=== PATIENT | female | born 1950 | race Caucasian/White ===

== ENCOUNTER 2023-09-13 07:13 | Emergency (ER) | payer MEDICARE, OTHER, SELFPAY ==
[2023-09-13] VITALS (14 sets, daily range): BP systolic 101–135; BP diastolic 63–105; BMI 31.1
[2023-09-13] MEDS: CARDIZEM 20 MG IV (07:39)
[2023-09-13] MEDS: NSS 1000 IV (07:42)
[2023-09-13] MEDS: CARDIZEM 125 IV (07:42)
--- NOTE | 2023-09-13 07:47 | ED.GENMED ---
Addendum entered and electronically signed by Yariel Trujillo Jr., PA-C 09/13/23 10:29:
0945: Patient converted spontaneously from atrial fibrillation to sinus rhythm repeat EKG confirming this. Patient now asymptomatic. Patient was seen by cardiology and is stable for outpatient management was started on Eliquis written for 30-day
supply will follow-up closely. Return precautions given.
Original Note:
History of Present Illness
<Yariel Trujillo Jr., PA-C - Last Filed: 09/13/23 09:40>
General
Chief Complaint: Heart Rate Problem
Source: patient
Exam Limitations: none
Time Seen by Provider: 09/13/23 07:23
Nursing documentation reviewed up to this point in time: agreed with
Travel History
Have you had any contact with someone who has COVID-19?: No
Do you have any symptoms of coronavirus? Fever > 100 degrees, chills, cough, shortness of breath, sore throat, loss of taste or smell, muscle aches, or headache?: No
History of Present Illness
History of Present Illness:
73-year-old female with past medical history of aortic stenosis hypertension hyperlipidemia polymyalgia rheumatica presenting to the emergency department today with concerns of palpitations irregular heartbeat lightheadedness that occurred just
after waking up when going to the bathroom this morning. Denies any history of significant palpitations similar to this. Does appreciate previous history of breast cancer not currently being treated for this. Does have some nausea no vomiting
took Zofran as well as her blood pressure medications prior to arrival which include Cardizem, lisinopril and Catapres
Review of Systems
<FRED Lai Jr. Last Filed: 09/13/23 09:40>
Review of Systems
Allergies reviewed?: Yes
All Other Systems: ROS reviewed and negative except as documented in HPI and ROS
Phy Exam
<FRED Lai Jr. Last Filed: 09/13/23 09:40>
Physical Exam
Physical Exam:
GENERAL: Alert , in no apparent distress
EYE: pupils equal and reactive
NECK: Supple, no significant adenopathy.
ENT: o/p clr, mmm.
CARDIAC: Irregularly irregular and tachycardic, grade 3 pansystolic murmur
LUNGS: Clear breath sounds bilaterally, no acute respiratory distress, no wheezes/rales/rhonchi
ABDOMEN: Soft, without focal tenderness, no r/g, no cvat
NEUROLOGICAL: Alert and oriented, no focal neuro deficits
SKIN: Warm and dry, skin intact.
MUSCULOSKELETAL: No edema, well perfused.
PSYCH: Normal and appropriate interaction.
Course
<Yariel Trujillo Jr., FRED - Last Filed: 09/13/23 09:40>
Orders/Labs/Results
Orders:
Orders
09/13/23 07:20
EKG [Electrocardiogram (*1)] Urgent
Reason for Study: Palpitations
EKG- Treatment ONCE
09/13/23 07:33
Diltiazem 125 mg/125 ml Nss [Cardizem] 125 mg in 125 ml .ROUTE .STK-MED
Diltiazem HCl [Cardizem] 25 mg .ROUTE .STK-MED ONE
09/13/23 07:39
Cardiac Monitoring- Treatment ONCE
0.9% Sodium Chloride 1000 ml [Nss] 1,000 ml IV BOLUS
Diltiazem HCl [Cardizem] 20 mg IV NOW STA
09/13/23 07:43
Complete Blood Count/With Diff Urgent
NT-proBNP Urgent
PTT Urgent
Prothrombin Time Urgent
TSH Urgent
Troponin I Urgent
09/13/23 07:45
Diltiazem 125 mg/125 ml Nss [Cardizem] 125 mg in 125 ml IV PER PROTOCOL
Initial dose in mg/hr, then titrate:: 5
Titrate to keep:: Heart rate 80-100 bpm
Titrate by mg/hr:: 5 mg/hr
Frequency of titrations (minutes):: 15
Maximum dose in mg/hr:: 15
09/13/23 08:19
Lorazepam [Ativan] 0.5 mg IV NOW STA
09/13/23 08:27
Apixaban [Eliquis] 5 mg PO ONCE ONE
09/13/23 08:41
Comprehensive Metabolic Panel Urgent
Magnesium Urgent
Abnormal Lab Results
09/13/23 09/13/23
07:43 08:41
MPV 10.5 H fL
(7.4-10.4)
Absolute Neuts (auto) 6.9 H 10^3/uL
(1.4-6.5)
Absolute Monos (auto) 0.9 H 10^3/uL
(0.1-0.6)
Lymphocytes % 15.7 L %
(20.5-51.1)
Creatinine 0.5 L mg/dL
(0.6-1.0)
Glucose 116 H mg/dl
(70-99)
Troponin I 0.061 H* ng/ml
09/13/23 07:43
09/13/23 08:41
Vital Signs
Initial and Last Documented VS:
Initial Vital Signs
Temp Pulse Resp BP Pulse Ox
97.8 F 59 16 113/80 99
09/13/23 07:15 09/13/23 07:15 09/13/23 07:15 09/13/23 07:15 09/13/23 07:15
Last Documented Vital Signs
Temp Pulse Resp BP Pulse Ox
97.8 F 140 18 117/80 98
09/13/23 07:15 09/13/23 08:35 09/13/23 08:35 09/13/23 08:35 09/13/23 08:35
<Jose Webb MD - Last Filed: 09/13/23 08:30>
Orders/Labs/Results
Orders:
Orders
09/13/23 07:20
EKG [Electrocardiogram (*1)] Urgent
Reason for Study: Palpitations
EKG- Treatment ONCE
09/13/23 07:33
Diltiazem 125 mg/125 ml Nss [Cardizem] 125 mg in 125 ml .ROUTE .STK-MED
Diltiazem HCl [Cardizem] 25 mg .ROUTE .STK-MED ONE
09/13/23 07:39
Cardiac Monitoring- Treatment ONCE
0.9% Sodium Chloride 1000 ml [Nss] 1,000 ml IV BOLUS
Diltiazem HCl [Cardizem] 20 mg IV NOW STA
09/13/23 07:43
Complete Blood Count/With Diff Urgent
NT-proBNP Urgent
PTT Urgent
Prothrombin Time Urgent
TSH Urgent
Troponin I Urgent
09/13/23 07:45
Diltiazem 125 mg/125 ml Nss [Cardizem] 125 mg in 125 ml IV PER PROTOCOL
Initial dose in mg/hr, then titrate:: 5
Titrate to keep:: Heart rate 80-100 bpm
Titrate by mg/hr:: 5 mg/hr
Frequency of titrations (minutes):: 15
Maximum dose in mg/hr:: 15
09/13/23 08:19
Lorazepam [Ativan] 0.5 mg IV NOW STA
09/13/23 08:27
Apixaban [Eliquis] 5 mg PO ONCE ONE
09/13/23 08:41
Comprehensive Metabolic Panel Urgent
Magnesium Urgent
Abnormal Lab Results
09/13/23 09/13/23
07:43 08:41
MPV 10.5 H fL
(7.4-10.4)
Absolute Neuts (auto) 6.9 H 10^3/uL
(1.4-6.5)
Absolute Monos (auto) 0.9 H 10^3/uL
(0.1-0.6)
Lymphocytes % 15.7 L %
(20.5-51.1)
Creatinine 0.5 L mg/dL
(0.6-1.0)
Glucose 116 H mg/dl
(70-99)
Troponin I 0.061 H* ng/ml
09/13/23 07:43
09/13/23 08:41
Vital Signs
Initial and Last Documented VS:
Initial Vital Signs
Temp Pulse Resp BP Pulse Ox
97.8 F 59 16 113/80 99
09/13/23 07:15 09/13/23 07:15 09/13/23 07:15 09/13/23 07:15 09/13/23 07:15
Last Documented Vital Signs
Temp Pulse Resp BP Pulse Ox
97.8 F 140 18 117/80 98
09/13/23 07:15 09/13/23 08:35 09/13/23 08:35 09/13/23 08:35 09/13/23 08:35
<Yariel Trujillo Jr., FRED - Last Filed: 09/13/23 09:40>
MDM/Problems Addressed
MDM/Problems Addressed:
73-year-old female presenting to the emergency department today with concerns of palpitations and elevated heart rate prior to arrival with associated lightheadedness and nausea. Upon arrival here heart rate in the 170s to 180s and irregularly
irregular consistent with atrial fibrillation. Patient has no history of this. Did drink some alcohol last night denies daily use. Patient given initial dose of Cardizem 20 mg NSAID on drip. Heart rate improving to the 180s Case was discussed
with cardiology and will be admitted for further treatment and monitoring. Not a good candidate for cardioversion at this time. Stable throughout ER stay blood pressure remaining in the 110s.
<Yariel Trujillo Jr., PA-C - Last Filed: 09/13/23 09:40>
*Critical Care Note
Total Time (30-74mins, 75-104mins- exclusive of procedures): Not Applicable
ED Attending Note
<Yariel Trujillo Jr., PA-C - Last Filed: 09/13/23 09:40>
-
Portions of this chart may have been created with voice recognition software.� Occasional wrong word or��sound alike� substitutions may have occurred due to the inherent limitations of voice recognition software.
<Jose Webb MD - Last Filed: 09/13/23 08:30>
ED Attending Note
Patient seen and examined by attending physician: Yes
I performed the substantive portion of visit, reviewed & personally made and approve the management plan that is documented in note by myself or ЕЛЕНА.: Yes
ED Attending Note:
73-year-old female sudden onset of irregular rapid heartbeat with some mild chest discomfort and shortness of breath in the middle the night. No history of same. 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 No history of same.
History of aortic stenosis.
On exam patient has atrial fibrillation/RVR. Midsystolic murmur. Lungs are relatively clear. May be a few crackles in the bases. No respiratory distress. Warm and dry. Perfusing well.
Diagnosis atrial fibrillation RVR with significant aortic stenosis. Carefully start rate control. Patient is a candidate for anticoagulation. Discussed cardioversion versus admission. Because of patient's AAS and multiple hypertensive meds she
would not be a candidate for outpatient rate control. Discussed with cardiology. She will be admitted with rate control and monitoring
Discharge Plan
Departure
Patient Disposition: Admit
Date of Disposition: 09/13/23
Time of Disposition: 08:33
Admit to: Telemetry
Admit to doctor: Taco
Presentation/result/management discussed w/ accepting MD/DO: Hospitalist
Patient with high blood pressure during this ER visit?: No
Condition: Good
Covid-19: Not Applicable
Discharge Problem:
Atrial fibrillation with RVR
Referrals:
Samanta Pineda MD [Family Provider] -
Interventions
Interventions:
*General Assessment Last Done: 09/13/23 07:15
*ED COVID-19 Vaccine History Last Done: 09/13/23 07:15
ED- Cardiac Assessment Last Done: 09/13/23 07:52
ED- Pulmonary Assessment Last Done: 09/13/23 07:52
[2023-09-13 07:55] LABS: % Basophils 1.6 % (0-2); % Eosinophils 1.9 % (0-6); % Immature Granulocytes 0.3 % (0-0.5); % Lymphocytes 15.7 % (20.5-51.1); % Monocytes 8.8 % (1.7-9.3); % Neutrophils 71.7 % (42.2-75.2); Absolute Basophils 0.2 10^3/uL (0-0.2); Absolute Eosinophils 0.2 10^3/uL (0-0.7); Absolute Lymphocytes 1.5 10^3/uL (1.2-3.4); Absolute Monocytes 0.9 10^3/uL (0.1-0.6); Absolute Neutrophils 6.9 10^3/uL (1.4-6.5); Hematocrit 38.5 % (37.0-47.0); Hemoglobin 13.4 g/dL (12.0-16.0); Mean Corp Hgb Conc. 34.8 g/dL (33.0-37.0); Mean Corpuscular Hgb 30.9 pg (27.0-31.0); Mean Corpuscular Volume 88.9 fL (81.0-99.0); Mean Platelet Volume 10.5 fL (7.4-10.4); Nucleated Red Blood Cells % 0 %; Platelet Count 203 10^3/uL (130-400); Red Blood Cell Count 4.33 10^6/uL (4.20-5.40); Red Cell Dist. Width 13.6 % (11.5-14.5); White Blood Cell Count 9.6 10^3/uL (4.8-10.8)
[2023-09-13 08:04] LABS: INR 1.03; PT 13.3 Sec (11.4-14.6)
[2023-09-13 08:19] LABS: NT-proBNP 1140 pg/ml; Troponin I 0.061 ng/ml
[2023-09-13] MEDS: ATIVAN 0.5 MG IV (08:32)
[2023-09-13 08:37] LABS: TSH 1.53 uIU/ml (0.47-4.68)
[2023-09-13 09:03] LABS: ALT (SGPT) 19 U/L (0-35); AST (SGOT) 23 U/L (14-36); Albumin 4.1 g/dl (3.5-5.0); Alkaline Phosphatase 70 U/L (38-126); Blood Urea Nitrogen 13 mg/dl (7-17); Calcium 9.1 mg/dl (8.4-10.2); Carbon Dioxide 24 mmol/L (22-30); Chloride 104 mmol/L (98-107); Estimated Creatinine Clearance 91 ml/min; Glucose 116 mg/dl (70-99); Magnesium 1.8 mg/dl (1.6-2.3); Sodium 138 mmol/L (135-145); Total Bilirubin 0.2 mg/dl (0.2-1.3); Total Protein 6.3 g/dl (6.3-8.2); eGFR > 60.00
--- NOTE | 2023-09-13 10:17 | ED.GENMED ---
History of Present Illness
General
Chief Complaint: Heart Rate Problem
Time Seen by Provider: 09/13/23 07:23
Travel History
Have you had any contact with someone who has COVID-19?: No
Do you have any symptoms of coronavirus? Fever > 100 degrees, chills, cough, shortness of breath, sore throat, loss of taste or smell, muscle aches, or headache?: No
Course
Orders/Labs/Results
Orders:
Orders
09/13/23 07:20
EKG [Electrocardiogram (*1)] Urgent
Reason for Study: Palpitations
EKG- Treatment ONCE
09/13/23 07:33
Diltiazem 125 mg/125 ml Nss [Cardizem] 125 mg in 125 ml .ROUTE .STK-MED
Diltiazem HCl [Cardizem] 25 mg .ROUTE .STK-MED ONE
09/13/23 07:39
Cardiac Monitoring- Treatment ONCE
0.9% Sodium Chloride 1000 ml [Nss] 1,000 ml IV BOLUS
Diltiazem HCl [Cardizem] 20 mg IV NOW STA
09/13/23 07:43
Complete Blood Count/With Diff Urgent
NT-proBNP Urgent
PTT Urgent
Prothrombin Time Urgent
TSH Urgent
Troponin I Urgent
09/13/23 07:45
Diltiazem 125 mg/125 ml Nss [Cardizem] 125 mg in 125 ml IV PER PROTOCOL
Initial dose in mg/hr, then titrate:: 5
Titrate to keep:: Heart rate 80-100 bpm
Titrate by mg/hr:: 5 mg/hr
Frequency of titrations (minutes):: 15
Maximum dose in mg/hr:: 15
09/13/23 08:19
Lorazepam [Ativan] 0.5 mg IV NOW STA
09/13/23 08:27
Apixaban [Eliquis] 5 mg PO ONCE ONE
09/13/23 08:41
Comprehensive Metabolic Panel Urgent
Magnesium Urgent
09/13/23 09:56
Electrocardiogram (*1) Urgent
Reason for Study: Atrial Fibrillation
09/13/23 09:57
EKG- Treatment ONCE
Abnormal Lab Results
09/13/23 09/13/23
07:43 08:41
MPV 10.5 H fL
(7.4-10.4)
Absolute Neuts (auto) 6.9 H 10^3/uL
(1.4-6.5)
Absolute Monos (auto) 0.9 H 10^3/uL
(0.1-0.6)
Lymphocytes % 15.7 L %
(20.5-51.1)
Creatinine 0.5 L mg/dL
(0.6-1.0)
Glucose 116 H mg/dl
(70-99)
Troponin I 0.061 H* ng/ml
09/13/23 07:43
09/13/23 08:41
Vital Signs
Initial and Last Documented VS:
Initial Vital Signs
Temp Pulse Resp BP Pulse Ox
97.8 F 59 16 113/80 99
09/13/23 07:15 09/13/23 07:15 09/13/23 07:15 09/13/23 07:15 09/13/23 07:15
Last Documented Vital Signs
Temp Pulse Resp BP Pulse Ox
97.8 F 87 24 105/73 98
09/13/23 07:15 09/13/23 09:45 09/13/23 09:45 09/13/23 09:30 09/13/23 09:45
ED Attending Note
-
Portions of this chart may have been created with voice recognition software.� Occasional wrong word or��sound alike� substitutions may have occurred due to the inherent limitations of voice recognition software.
Discharge Plan
Departure
Patient Disposition: Home (Routine Discharge)
Date of Disposition: 09/13/23
Time of Disposition: 08:33
Admit to: Telemetry
Patient with high blood pressure during this ER visit?: No
Condition: Good
Covid-19: Not Applicable
Discharge Problem:
Atrial fibrillation with RVR
Instructions: Atrial Fibrillation (DC)
Prescriptions:
New
Eliquis 5 mg tablet
5 mg PO BID 30 Days Qty: 60 0RF
Referrals:
Samanta Pineda MD [Family Provider] -
Debbie Fuentes MD [Active] - Follow up in 5-7 days
Activity Restrictions/Additional Instructions:
You came to emergency department today with concerns of atrial fibrillation. You converted here after receiving Cardizem. Please take your home medications as well as Eliquis twice daily and follow-up closely with cardiology. Return to the
emergency department any worsening, new or concerning symptoms.
Interventions
Interventions:
*General Assessment Last Done: 09/13/23 07:15
*ED COVID-19 Vaccine History Last Done: 09/13/23 07:15
ED- Cardiac Assessment Last Done: 09/13/23 07:52
ED- Pulmonary Assessment Last Done: 09/13/23 07:52
[2023-09-13] MEDS: ELIQUIS 5 MG PO (10:28)
[2023-09-13 10:59] LABS: Urine Albumin Negative (Neg - Trace); Urine Bilirubin Negative (Negative); Urine Character Clear (Clear); Urine Color Yellow; Urine Glucose Negative (Negative); Urine Ketone Negative (Negative); Urine Leukocyte Trace (Negative); Urine Nitrite Negative (Negative); Urine Occult Blood Negative (Negative); Urine Urobilinogen Negative (Neg - 1+)
[2023-09-13 11:49] LABS: Urine Red Blood Cell 0-2 /HPF (0-2)
== END 2023-09-13 10:40 | disposition home or self-care (01) ==
LOC: EMR 07:13
PROVIDERS: Physician Assistant; EMERGENCY PHYSICIAN Emergency Medicine; FAMILY PHYSICIAN Internal Medicine
DX: I48.91 Unspecified atrial fibrillation (principal); I35.0 Nonrheumatic aortic (valve) stenosis; I10 Essential (primary) hypertension
CPT/HCPCS: 99285; 96374; 96375; 96361; 96376; 80053; 81003; 81015; 83735; 83880; 84443; 84484; 85025; 85610; 85730; 93005

== ENCOUNTER 2024-07-08 08:44 | Day surgery (SDC) | payer MEDICARE, OTHER, SELFPAY ==
[2024-07-08] VITALS (9 sets, daily range): BP systolic 94–126; BP diastolic 53–74; BMI 31.3
[2024-07-08] MEDS: NSS 500 IV (09:54)
[2024-07-08] MEDS: ZOFRAN 4 MG IV (10:16)
[2024-07-08] MEDS: NSS 1000 IV (12:33)
[2024-07-08] MEDS: TYLENOL 650 MG PO (12:42)
--- NOTE | 2024-07-08 13:55 | CONSULT.STRU ---
Consultation
-
Date/Time Consultation Requested: 07/08/2024
Date/Time Consultation Performed: 07/08/2024
Requesting Provider: Dr. Marks
Performing Provider: SINDY Estrella
Reason for Consultation: Aortic stenosis/TAVR evaluation
Patient History
Physicians
Family Physician: Dr. Samanta Pineda
Outpatient Chicken Catcher: Dr. Griffith
Primary Chicken Catcher: Dr. Griffith
History of Present Illness
74 yo pleasant, female with PMH of severe , paroxysmal A fib on eliquis, iRBBB, HTN, hyperlipidemia, mildly dilated ascending aorta (4.0cm), right breast cancer (s/p lumpectomy,chemo, radiation), myalgia, PMR. She had previously followed with
[facility] and has chosen to now establish care here. Previous echocardiogram was notable for MmmHG and GERRY: 0.6, EF 66%. Plan to repeat today while here. Presents today for cardiac catheterization with Dr. Marks as part of her TAVR work up. No
occlusive CAD noted on cath.Patient exercises 4x/week and remains very active caring for her grandchildren. She denies any true symptoms. She denies BELL, CP, palpitations (other than the one episode of a-fib), orthopnea, PND or peripheral edema. She
says she 'cat naps' frequently but she relates that to her prior cancer treatment 2 years ago.
Reviewed the pathophysiology of aortic stenosis with the patient and her . Explained the treatment options of SAVR and TAVR. Explained the TAVR evaluation process including follow up BMP, CT TAVR scan, CT surgery consult and Heart Team
discussion. Provided with script for BMP next week, script and appointment for CT TAVR, Consult appointment with Dr. Fisher and a copy of the TAVR education booklet with contact information. Allowed for and answered questions.
Past Medical History
Past Medical History: Atrial Fib (Eliquis, Chads2-Vasc: 3), Cancer (right breast cancer with lumpectomy, chemo, radiation), GERD, HTN, Hypercholesterolemia and Other (Polymyalgia Rheumatica, peripheral neuropathy secondary to chemotherapy, tinnitus,
skin cancer)
Past Surgical History
Past Surgical History: Orthopedic (Bilateral total knee replacements, Left reverse shoulder) and Other (right breast lumpectomy and lymph node dissection, breast reductions and sinus surgery)
Dental History
Regular dental care. Last visit last week in anticipation of AVR. Dentis is Dr. Freedman in [place], [place]
Family History
Mother: at Age (83yo)
Father: at Age (93yo)
Social History
Alcohol: Occasional
Drug: None
Tobacco: Non-Smoker
Personal:
Living: With Spouse
Employment: Retired
Allergies
Allergy/AdvReac Type Severity Reaction Status Date / Time
levofloxacin [From Levaquin] Allergy Hives Verified 07/08/24 09:36
'anesthesia meds' Allergy Nausea / Uncoded 07/08/24 09:36
Vomiting
Home Medications
�Medication �Instructions �Recorded �Confirmed �Type
apixaban 5 mg tablet (Eliquis) 5 mg PO BID 30 days #60 tabs 09/13/23 07/08/24 Rx
vuwlkrodgp-ssuezpeykgcwm-geeacjcj 1 cap PO Q8H PRN occullar migrane 07/08/24 07/08/24 History
50 mg-300 mg-40 mg capsule
(Fioricet)
cetirizine 10 mg tablet (Zyrtec) 10 mg PO DAILY PRN ALLERGIES 07/08/24 07/08/24 History
cholecalciferol (vitamin D3) 25 25 mcg PO QPM 07/08/24 07/08/24 History
mcg (1,000 unit) capsule (Vitamin
D3)
clonidine HCl 0.1 mg tablet 0.1 mg PO TID 07/08/24 07/08/24 History
diltiazem HCl 180 mg 180 mg PO DAILY 07/08/24 07/08/24 History
capsule,extended release 24 hr
docusate sodium 100 mg capsule 100 mg PO DAILY PRN CONSTIPATION 07/08/24 07/08/24 History
(Stool Softener)
letrozole 2.5 mg tablet 2.5 mg PO DAILY 07/08/24 07/08/24 History
lisinopril 40 mg tablet 40 mg PO BID 07/08/24 07/08/24 History
multivitamin 1 tab PO DAILY 07/08/24 07/08/24 History
omeprazole 40 mg capsule,delayed 40 mg PO BID 07/08/24 07/08/24 History
release
pregabalin 25 mg capsule (Lyrica) 25 mg PO BID peripheral neuro 07/08/24 07/08/24 History
psyllium husk 0.52 gram capsule 0.52 g PO HS 07/08/24 07/08/24 History
rosuvastatin 20 mg tablet 20 mg PO HS 07/08/24 07/08/24 History
tirzepatide (weight loss) 5 mg/0.5 5 mg SC QWEEK 07/08/24 07/08/24 History
mL subcutaneous pen injector
(Zepbound)
zolpidem 12.5 mg tablet,extended 12.5 mg PO HS PRN SLEEP 07/08/24 07/08/24 History
release,multiphase
STS%
STS %: 1.78%
Review of Systems
-
History Source: Patient and Family
General: Reports Fatigue
HEENT: Reports Other (tinnitus)
Respiratory: Reports No Symptoms; Denies BELL, Cough, Asthma or PND
Cardiac: Reports Known Vascular Disease; Denies Chest Pain, CAD or Edema
Abdomen/GI: Reports Reflux; Denies Abdominal Pain, Nausea or Vomiting
: Reports No Symptoms
Musculoskeletal: Reports No Symptoms
Skin: Reports No Symptoms
Neurological: Reports Headaches (occasional migraines) and Other (neuropathy bilateral feet)
Vascular: Reports No Symptoms
Physical Exam
Vital Signs
Temp 98 F 07/08/24 11:57
Temp route: Oral 07/08/24 11:57
Pulse 57 07/08/24 13:30
Resp Rate 12 07/08/24 13:30
Blood pressure 111/62 07/08/24 13:30
Blood pressure extremity used: Left upper arm 07/08/24 13:30
Position: Lying 07/08/24 13:30
SaO2 96 07/08/24 13:30
Oxygen Mode of Delivery Room air 07/08/24 13:39
Can the patient verbally communicate their pain? Yes 07/08/24 13:39
Pain scale ratin 07/08/24 13:39
Actual Weight 85.185 kg 07/08/24 08:16
Body Mass Index (BMI) 31.3 07/08/24 08:16
Labs
06/17/2024
BUN/Creat: 18/0.63
GFR: > 60
H/H: 11.8/34.8
WBC: 7.2
Platelets: [id number]
Exam
General: Well Developed, Well Nourished, No Apparent Distress and Comfortable
HEENT: Normocephalic, PERRLA and EOMI
Neck: Trachea Midline
Respiratory: Clear; Negative Wheezes, Crackles or Rhonchi
Cardiac: S1/S2, Regular Rhythm and Murmur (Grade III/ systolic)
GI: Soft, Non Tender, Non Distended and Normal Bowel Sounds
Rectal: Deferred by Provider
Skin: Warm and Dry
Neuro: AO x 3, No Motor Deficits and Nonfocal/Grossly Intact
Extremities: Pulses (WNL); Negative Lower Level Edema
Psych: Calm
Assessment / Plan
-
Procedure Type:�Isolated AVR
PERIOPERATIVE OUTCOME ESTIMATE %
Operative Mortality 1.78%
Morbidity & Mortality 7.79%
Stroke 0.896%
Renal Failure 1.28%
Reoperation 2.98%
Prolonged Ventilation 3.56%
Deep Sternal Wound Infection 0.057%
Long Hospital Stay (>14 days) 3.93%
Short Hospital Stay (<6 days)* 39.8%
Assessment:
Severe Aortic Stenosis
Plan:
Continue evaluation for TAVR as outpatient
����������� BMP next week
����������� CT TAVR scan 07/21/2024 0930 at
����������� CT surgery consult with Dr. Fisher 07/25
����������� Heart team discussion at [facility]
����������� Dental Clearance
Data Reviewed
-
EKG: Report Reviewed by me (06/28/2024: Sinus rhythm with incomplete R-BBB)
Hot Braider: Discussed with Physician
Echo: Discussed with Physician (repeating echo today)
Labs: Labs Reviewed by me and Discussed with Patient
Old Records: Reviewed (cardiology consult notes)
Total Time Spent with Patient (in minutes): 25
--- NOTE | 2024-07-08 18:06 | ITS.CL.PN ---
[employer] Operations Manager - Procedure Note
Procedure
Procedure Note:
CARDIAC CATHETERIZATION REPORT
Date of Procedure: 07/08/2023
Referring: Dr. Tristin Griffith MD, PhD
Indication: Severe aortic stenosis
PROCEDURE(S)
1. right heart catheterization
2. left heart catheterization
3. coronary angiography
ACCESS
1. 6F right radial artery (closure: radial band)
2. 5F right antecubital vein (closure: manual hemostasis)
CATHETERS
1. 5F [place]
2. 6F JR4
3. 6F JL3.5
HEMODYNAMIC DATA
LV 197/13 (EDP 20) mmHg
AO 105/57 (mean 76) mmHg
RA 13 mmHg
RV 36/10 mmHg
PA 33/17 (mean 24) mmHg
PCWP 16 mmHg
SaO2 95.9%
SvO2 76.9%
Hb 11.7 g/dL
CO/CI 7.94/4.13 L/min/m2
SVR 654 dsc*-5
PVR 1.0 Wood units
Mean gradient: 74 mmhg
Valve area 0.93 cm2 ([place])
CORONARY ANGIOGRAPHY
Dominance: Right
LM: Large and normal.
LAD: Large vessel giving rise to a moderate caliber D1, moderate caliber D2, and wrapping around the apex. There is no CAD.
LCx: Large vessel giving rise to a large branching OM1 and large branching OM 2. There is a 30% stenosis in the proximal aspect of OM1 and otherwise no significant CAD.
RCA: Gives rise to the RPDA and a large RPL system. There is no CAD.
RADIATION: dose 304 mGy; DAP 29.5 Gy*cm2; fluoroscopy time 12.6 min
CONCLUSIONS
1. Critical aortic stenosis with mildly elevated biventricular filling pressures, mild pulmonary hypertension, and supranormal cardiac output.
2. Nonobstructive coronary artery disease in a right dominant system
RECOMMENDATIONS
1. expectant management after cardiac catheterization via right radial artery and right brachial vein approach
2. further workup for TAVR versus SAVR with CT angio. Patient is very active with significant residual life expectancy, and has aortic dilation with 4.1 cm root. These factors will need to be considered when considering lifetime management
approach to her severe .
Copy to: Dr. Tristin Griffith MD, PhD (last repairer helper); Dr. Samanta Pineda MD (PCP)
Signed: Miguel A Marks MD, PhD
== END 2024-07-08 15:05 | disposition home or self-care (01) ==
LOC: CATH 08:44
PROVIDERS: ATTENDING PHYSICIAN Student in an Organized Health Care Education/Training Program; FAMILY PHYSICIAN Internal Medicine; OTHER PHYSICIAN Internal Medicine; OTHER PHYSICIAN Internal Medicine Cardiovascular Disease
DX: I35.0 Nonrheumatic aortic (valve) stenosis (principal); I27.20 Pulmonary hypertension, unspecified; I25.10 Atherosclerotic heart disease of native coronary artery without angina pectoris; I48.0 Paroxysmal atrial fibrillation; Z79.01 Long term (current) use of anticoagulants; I10 Essential (primary) hypertension; Z85.3 Personal history of malignant neoplasm of breast; Z92.3 Personal history of irradiation; Z92.21 Personal history of antineoplastic chemotherapy; E78.00 Pure hypercholesterolemia, unspecified; K21.9 Gastro-esophageal reflux disease without esophagitis; M35.3 Polymyalgia rheumatica; Z88.1 Allergy status to other antibiotic agents; Z88.4 Allergy status to anesthetic agent; Z79.899 Other long term (current) drug therapy
CPT/HCPCS: 93306; 93460; C1769; C1894; Q9967

== ENCOUNTER → 2024-07-21 08:56 | Outpatient (REF) | payer MEDICARE, OTHER, SELFPAY | LOC: RAD 08:56 | PROVIDERS: ATTENDING PHYSICIAN Nurse Practitioner Adult Health; FAMILY PHYSICIAN Internal Medicine; REFERRING PHYSICIAN Internal Medicine Cardiovascular Disease | DX: I35.0 Nonrheumatic aortic (valve) stenosis (principal) | CPT/HCPCS: 74174; 75572; Q9967 ==

== ENCOUNTER 2024-08-15 06:02 | Inpatient (IN) | payer MEDICARE, OTHER, SELFPAY ==
[2024-07-27 12:06] VITALS: BMI 29.9
[2024-07-27 12:53] LABS: Urine Albumin Negative (Neg - Trace); Urine Bilirubin Negative (Negative); Urine Character Clear (Clear); Urine Color Yellow; Urine Glucose Negative (Negative); Urine Ketone Negative (Negative); Urine Leukocyte Negative (Negative); Urine Nitrite Negative (Negative); Urine Occult Blood Negative (Negative); Urine Urobilinogen Negative (Neg - 1+)
[2024-07-27 12:56] LABS: % Basophils 0.9 % (0-2); % Eosinophils 0.7 % (0-6); % Immature Granulocytes 0.4 % (0-0.5); % Lymphocytes 9.9 % (20.5-51.1); % Neutrophils 81.1 % (42.2-75.2); Absolute Basophils 0.1 10^3/uL (0-0.2); Absolute Eosinophils 0.1 10^3/uL (0-0.7); Absolute Lymphocytes 0.8 10^3/uL (1.2-3.4); Absolute Monocytes 0.6 10^3/uL (0.1-0.6); Absolute Neutrophils 6.5 10^3/uL (1.4-6.5); Hematocrit 36.2 % (37.0-47.0); Hemoglobin 12.3 g/dL (12.0-16.0); Mean Corpuscular Hgb 30.2 pg (27.0-31.0); Mean Corpuscular Volume 88.9 fL (81.0-99.0); Mean Platelet Volume 10.9 fL (7.4-10.4); Nucleated Red Blood Cells % 0 %; Platelet Count 179 10^3/uL (130-400); Red Blood Cell Count 4.07 10^6/uL (4.20-5.40); White Blood Cell Count 8.1 10^3/uL (4.8-10.8)
[2024-07-27 13:21] LABS: INR 1.11; PT 14.6 Sec (11.4-14.6)
[2024-07-27 13:22] LABS: APTT 31.7 Sec (23.4-35.0)
[2024-07-27 13:28] LABS: ALT (SGPT) 22 U/L (0-35); AST (SGOT) 26 U/L (14-36); Albumin 4.8 g/dl (3.5-5.0); Alkaline Phosphatase 67 U/L (38-126); Blood Urea Nitrogen 13 mg/dl (7-17); Calcium 9.2 mg/dl (8.4-10.2); Carbon Dioxide 26 mmol/L (22-30); Chloride 99 mmol/L (98-107); Direct Bilirubin 0.1 mg/dl (0.0-0.4); Estimated Creatinine Clearance 88 ml/min; Glucose 89 mg/dl (70-99); Potassium 4.4 mmol/L (3.5-5.1); Sodium 133 mmol/L (135-145); Total Bilirubin 0.2 mg/dl (0.2-1.3); Total Protein 6.8 g/dl (6.3-8.2); eGFR > 60.00
[2024-07-27 14:15] LABS: Glycohemoglobin (HgbA1c) 5.3 % (4.0-5.6)
--- NOTE | 2024-07-27 14:37 | CM ---
spoke to pt in PAT's, we discussed preop TAVR teaching including driving and lifting restrictions, adam jann hernandez, lives with her husb in a 2 story home with no steps to enter. she denies any dme's. she is agreeable to a f/u visit fro [facility]
transitional care nurse after dc. cm role explained and all questions answered. plan is for TAVR 08/04.
[2024-08-15] VITALS (18 sets, daily range): BP systolic 92–153; BP diastolic 53–106; BMI 29.2
--- NOTE | 2024-08-15 06:34 | W.CVOR.SURPR ---
CVOR Surgeon Immed Pre Op
-
I have examined this patient prior to performance of the scheduled procedure.
The patient's condition is unchanged from the time of the dictated/written History and
Physical and the patient is able to undergo the scheduled procedure.
TF TAVR
Full Rescue
[2024-08-15 08:02] LABS: ACT-LR - POC 210 Seconds (116-155)
[2024-08-15 08:22] LABS: ACT-LR - POC 240 Seconds (116-155)
[2024-08-15 08:47] LABS: ACT-LR - POC 268 Seconds (116-155)
--- NOTE | 2024-08-15 08:49 | W.PN.CT.SURG ---
CT Surgery Operative Note
-
OPERATIVE REPORT
Preoperative Diagnosis: Severe aortic valve stenosis, symptomatic
Postoperative Diagnosis: Same
Procedure(s) Performed: Right trans femoral TAVR with a 29 mm Medtronic Evolut FX device with pre-BAV and post BAV
Date of Procedure: 08/15/2024
Comorbidities:
1. Severe symptomatic aortic stenosis, symptomatic
2. Critical gradients
3. History of breast cancer status post surgery and radiation plus chemotherapy
4. Diverticulosis
5. Hypertension
6. Polymyalgia rheumatica
7. GERD
8. History of atrial fibrillation
Cardiac Surgeon: Raj Fisher MD, MS
Darklight Inspector: Andrea Marks MD
Anesthesia: Conscious Sedation, Local
EBL: 100cc
Products: none
Implant: Medtronic Evolut FX 29mm fracture TAVR valve SN: [id number]
Indication(s) for Procedures: 74-year-old female with severe aortic stenosis. Symptomatic. Multidisciplinary evaluation discussion about the patient with interventional cardiology, cardiology, and cardiac surgery all with consensus that moving
forward with transcatheter invention was appropriate. CT-TAVR protocol revealed acceptable anatomy for a self-expanding TAVR valve.
Start time: 0734hrs
Deployment time: 0816hrs
End time: 0847hrs
Radiation Dose (mGy): 973.55
DAP (cm2.Gy): 75.7626
Fluoroscopy time (minutes): 23.8
Contrast volume (ml): 104
TAVR gradient (mmHg): 15mmHg then 12mmHg (post BAV)
Heparin Dose: 6400units + 4000 units additional
Final Valve Positioning: R 3mm: L 5mm
LVEDP [mmHg]: 20
Findings: Preoperative LVEF was 60% and was 70-75% following TAVR without inotropic support. Function was overall normal without regional wall motion abnormalities or dyskinesia. The aortic valve was well seated with only mild PVL following the post
deployment balloon valvuloplasty with a 23 mm true balloon. The patient did not require pacing postoperative and was in sinus rhythm. There was successful placement of 29 mm Evolut FX TAVR valve without acute complications. Her LVEDP intra
procedurally was 20, given a hyperdynamic she was post valve deployment, she had an elevated gradient of approximately 15 that improved to 12 following balloon valvuloplasty with a 23 mm true balloon. Her paravalvular leak initially was mild to
moderate possibly bordering on moderate which improved to mild. We opted to not pursue a postdilatation balloon valvuloplasty with a larger balloon given the large calcium burden of her noncoronary cusp extending down towards the aorto mitral
curtain. Diastolic blood pressures were in the 60s with a normal systolic blood pressure.
Access:
1. Device -right common femoral artery, perclose x 2
2. Pigtail -left common femoral artery + 6Fr angioseal
3. Transvenous Pacer -left common femoral vein
Description of Procedure: The patient was taken to the yard laborer. Their identity and procedure to be performed were verified and they were positioned supine on the yard laborer table. Induction via conscious sedation with local analgesia. The patient was
then prepped and draped from chin to thigh in a sterile fashion. A preoperative time-out was performed with all members of the team present. Using fluoroscopy, bilateral femoral heads and their margins were identified. Arterial and venous access
were done with a micropuncture needle with Seldinger technique. Test pacing revealed capture with excellent threshold. Angiography confirmed proper puncture site and femoral artery integrity. Two Per-Close devices were used on the TAVR side. An AL1
catheter was used to deliver a extrastiff wire and insertion of the working sheath. An AL1 catheter with a straight stiff wire was used to access the LV. A J-wire was then inserted and the pigtail was exchanged into the LV. LVEDP was measured
here. This was then exchanged for a Lunderquist wire placed to the apex. The valve was prepped and mounted on to the device carrier. An ACT of >250 was achieved. We verified x 3 under fluoroscopy that the valve was mounted correctly with paddles
in appropriate position. We than set our parameters to achieve a co-planar view with the pigtail positioned in the NCC. We advanced a 22 mm true balloon across the valve and under rapid pacing at 180 bpm we performed a pre-TAVR balloon
valvuloplasty. Pacing was then turned off once a balloon was fully deflated and we allowed her to recover. We advanced the device with it's in-line sheath into the descending thoracic aorta and over the arch into the root and positioned across the
aortic valve. Contrast fluoroscopy was used to visualize the prosthesis across the valve. We performed a quick pre-deployment time out. We verified positioning based on the pigtail and gentle contrast puffs. The valve was slowly deployed to just
before annular contact while pacing at 140 bpm. We paused here and verified positioning in our cusp overlap view. We then rotated SAMI and removed any parallax from the valve. Contrast was used to verify the LCC was appropriate in height. It was and
so we slowly continued to deploy the valve until the crowns and paddles were free from the device. At this point the valve was functioning and pacing was stopped. We slowly continued to deploy the valve until the crowns and paddles were free from
the device. The deployment device was withdrawn into the descending thoracic aorta while maintaining wire access across the valve. A transthoracic echocardiogram was performed which found that she was hyperdynamic with mild to moderate degree of
paravalvular leak at the calcium bar as expected preoperatively. We then opted to recross the valve using a pigtail and J-wire with then exchanged for a Lunderquist wire. A 23 mm true balloon was then selected and across the valve under rapid
pacing performed postdilatation balloon valvuloplasty. The paravalvular leak did improve to mild and her diastolic blood pressure did increase as well as a drop in her mean gradient across the bioprosthetic valve. The device was removed from the
groin as we cinched down the perclose devices while maintaining wire access. There was acceptable hemostasis. The pigtail was repositioned into the descending/abdominal and runoff aortogram was performed. There was no significant stenosis or
dissection of the bilateral iliofemoral systems with excellent runoff to the SFAs. All wires were removed and perclose snugged and cut. There was acceptable hemostasis of bilateral groins.
All instrument, sponge, and needle counts were confirmed to be correct x 2 at the end of the operation. The patient was transferred to the cardiac intensive care unit in stable condition.
I, Dr. Raj Fisher, was present, scrubbed for, and performed all critical elements of this procedure.
Raj Fisher MD, MS
Cardiothoracic Surgeon
[facility]
This operative dictation was created using the [employer] dictation system. Please excuse any grammatical, typographical, or 'sound alike' errors
--- NOTE | 2024-08-15 08:52 | ITS.CL.PN ---
[facility] - Procedure Note
Procedure
Procedure Note:
TRANSCATHETER AORTIC VALVE REPLACEMENT REPORT
Date of Procedure: 08/15/2024
Referring: Dr. Tristin Griffith MD, PhD
Indication: critical symptomatic aortic stenosis
Operators: Miguel A Marks MD, PhD (interventional cardiology); Dr. Raj Fisher MD (CT surgery)
Anesthesia: conscious sedation provided by the anesthesia staff
PROCEDURE: transfemoral, transcatheter aortic valve replacement with a Medtronic Evolute Fx Plus 29 mm valve
ACCESS:
1. 6F left femoral vein (closure: manual hemostasis)
2. 6F left common femoral artery (closure: Angioseal)
3. 14 F right common femoral artery (closure: Perclose x2)
ULTRASOUND GUIDED VASCULAR ACCESS (left common femoral artery): Ultrasound was utilized for vascular access. The vessel was visualized under ultrasound and noted to be patent. An image of the vessel was stored permanently in the patient's medical
record. Under direct ultrasound guidance, vascular access was obtained using a modified Seldinger technique and a 6 [place] sheath was placed.
ULTRASOUND GUIDED VASCULAR ACCESS (left femoral vein): Ultrasound was utilized for vascular access. The vessel was visualized under ultrasound and noted to be patent. An image of the vessel was stored permanently in the patient's medical record.
Under direct ultrasound guidance, vascular access was obtained using a modified Seldinger technique and a 6 [place] sheath was placed.
ULTRASOUND GUIDED VASCULAR ACCESS (right common femoral artery): Ultrasound was utilized for vascular access. The vessel was visualized under ultrasound and noted to be patent. An image of the vessel was stored permanently in the patient's medical
record. Under direct ultrasound guidance, vascular access was obtained using a modified Seldinger technique and a 14 [place] sheath was placed.
HEMODYNAMIC DATA
LV 20 mmHg
PROCEDURE NARRATIVE:
The patient was prepped and draped in standard sterile fashion. Conscious sedation was provided by the anesthesia staff. 6F left femoral vein and left common femoral artery access was obtained with ultrasound guidance using micropuncture technique
with verification of appropriate arteriotomy location via hand injection angiography. A temporary venous pacing wire was advanced via the left femoral vein to the right ventricle under fluoroscopic guidance with appropriate capture verified. A 5F
pigtail catheter was advanced via the left common femoral artery and seated in the non-coronary cusp. Angiography was performed to verify the cusp overlap angle.
8F right common femoral artery access was obtained with ultrasound guidance using micropuncture technique with verification of appropriate arteriotomy location via hand injection angiography. The arteriotomy was preclosed with two Perclose sutures
followed by replacement of the 8F sheath. Using an AL1 catheter, a Lunderquist wire was placed in the descending thoracic aorta. A 12F dilator was advanced over the Lunderquist wire followed by placement of a 14F Cook sheath. Heparin 6500 units was
given. The AL1 catheter was re-advanced through the E-sheath to the level of the ascending aorta. The Lunderquist wire was exchanged for a soft tipped straight wire which was used to cross the aortic valve and deposit the AL1 in the LV apex. A
J-wire was used to exchange the AL1 for a pigtail catheter in the LV and LVEDP was measured. The Lunderquist wire was advanced through the pigtail catheter and seated in the LV apex. ACT was checked and confirmed to be >250 seconds.
A 22 mm True valvuloplasty balloon was advanced over the Lunderquist wire and into the aortic annulus. Valvuloplasty was performed under rapid pacing with good balloon expansion. The valvuloplasty balloon was removed.
The valve was inspected under fluoroscopy to confirm lack of infolding above the 4th node. The Cook sheath was removed, and the in-line sheath was advanced over the Lunderquist wire into the descending aorta. The valve was then advanced over the
aortic arch and into the left ventricle. In the cusp overlap view, the valve was slowly deployed to the point of flowering. The patient was paced to adequately lower pulse pressure as the valve was deployed through the rumble strips to 80%.
Injection demonstrated a non-coronary cusp implant depth of 3 mm. Angiography performed in an [place]DIAN projection demonstrated left coronary cusp implant depth of 5 mm. The decision was made to proceed with full deployment. In the GRE[place] view, the delivery
handle was slowly rotated until both paddles were released from the superior aspect of the valve. The Lunderquist wire was partially withdrawn to lift the nose cone of the valve delivery device. The delivery device was withdrawn to the descending
aorta and re-assembled. The patient was resuscitated by anesthesia with recovery of adequate blood pressure. Telemetry demonstrating normal sinus rhythm. Aortography demonstrated good valve positioning, adequate coronary filling, and mild aortic
valve insufficiency. Echocardiography confirmed mild to moderate aortic insufficiency. Mean valve gradient was 15 mmHg. the decision was made to perform post dilation with a 23 mm true balloon. The valve deployment system and inline sheath were
removed, and replaced with a 14 [place] Cook sheath. The valve was recrossed with a pigtail and J-wire which was then exchanged for a Lunderquist wire. A 23 mm true balloon was advanced over the Lunderquist wire into the aortic annulus.
Valvoplasty was performed under rapid pacing with good balloon expansion. The valvuloplasty balloon was removed. Repeat echocardiography was performed and demonstrated improvement of PVL to mild with diastolic blood pressure increasing from 40 to
60 mmHg. Mean gradient had decreased to 12 mmHg. The decision was made to except this results and not perform further postdilation given risk for annular rupture.
The valvuplasty balloon and cook sheath were removed and hemostasis obtained with the two Perclose sutures. Aortoiliac angiography demonstrated no evidence of iliofemoral dissection/perforation and good runoff below the common femoral artery
bilaterally. Protamine 30 units was given. The pacemaker and the pigtail catheter were removed. The left femoral artery sheath was removed using a 6F Angioseal. The left femoral venous sheath was removed with manual pressure.
RADIATION: dose 973 mGy; DAP 75.7 Gy*cm2; fluoroscopy time 23.8 min
CONCLUSION: Successful placement of a Medtronic Evolut Fx Plus 29 mm transcatheter aortic valve via right transfemoral approach, pre-dilated with a 22 mm True balloon and post-dilated with a 23 mm True balloon. Excellent result without complications.
Copy to: Dr. Tristin Griffith MD, PhD (firebrick and refractory tile repairer); Samanta Pineda MD (PCP)
Signed: Miguel A Marks MD, PhD
--- NOTE | 2024-08-15 09:03 | W.PN.UPDATE ---
Update Note
Progress Note Update
Reviewed patient with the heart team in the preTAVR SDM meeting and confirmed a 29mm Evolut FX+. Ms. Cooley will resume Eliquis post TAVR. LVEDP 20mmHg. # 29mm Evolut FX+ (serial# [id number]) successfully implanted via right transfemoral access.
Post implant MG 12 mmHg.
--- NOTE | 2024-08-15 09:12 | CM ---
Reviewed chart. Mrs. Cooley is in the operating room. Prior to admission she resides wit her spouse in two story home without any steps to enter. Prior to admission she was independent with ambulation and adls. She does not have any DME in the
home. Medical work-up in progress. The discharge plan is to return home with her spouse and a home visit by the Transitional Care Nurse when medically stable.
--- NOTE | 2024-08-15 11:23 | PTCARENOTE ---
Received pt post TAVR. VSS. Neuro checks obtained and WNL. B/L groin sites w/ dressings clean, dry and intact. Pt denies any discomfort. Will monitor.
[2024-08-15] MEDS: ANCEF 10 IV ×2 (12:21→12:22)
[2024-08-15] MEDS: LYRICA 75 MG PO ×2 (12:22→20:07)
[2024-08-15] MEDS: PROTONIX PO (12:22)
[2024-08-15] MEDS: THERAGRAN 1 TABLET PO (14:47)
[2024-08-15] MEDS: ANCEF 5 IV (14:47)
[2024-08-15] MEDS: VITAMIN D3 (cholecalciferol) 125 MCG PO (18:22)
[2024-08-15] MEDS: TYLENOL 650 MG PO (18:32)
--- NOTE | 2024-08-15 19:42 | PTCARENOTE ---
Pt noted to have short runs of PAT. Pt c/o of 'a lightheadness felling'. During those episodes. Will monitor.
[2024-08-15] MEDS: PROTONIX 40 MG PO (20:07)
[2024-08-15] MEDS: MILK OF MAGNESIA 30 ML PO (20:07)
[2024-08-15] MEDS: CRESTOR 20 MG PO (22:54)
[2024-08-15] MEDS: DILAUDID 0.25 MG IV (22:54)
[2024-08-16] MEDS: AMBIEN 10 MG PO (00:02)
--- NOTE | 2024-08-16 00:13 | PTCARENOTE ---
Patient received at change of shift resting in the bed. Mild to moderate pain in the right groin, see MAR for medication administration. Right groin site with some ecchymosis but soft to palpation, gauze with tegaderm C/D/I. Left groin site gauze
with tegaderm C/D/I, area soft to palpation. Bilateral pedal pulses +2 to palpation. Patient remains on room air, oxygen saturation 99-100%. Neurological checks WDL. Sinus rhythm with PACs and PVCs on the monitor. CT surgery FRED Terry in to see
patient who reported concerns for palpitations, telemetry strip appeared to show nonsustained run of SVT at 1900, no further orders or changes in the plan of care were made. The patient has maintained sinus rhythm since that time. Call aguilar within
reach. Plan of care ongoing.
--- NOTE | 2024-08-16 01:29 | W.PN.CT ---
Today's Communication / Plan
-
Plan:
-No major issues overnight. Hemodynamically and neurologically intact
-No drips
-AM EKG shows incomplete RBBB (baseline). Did have about 4 episodes of sinus tachycardia 100-120's postop
-Groins C/D/I without significant hematoma
-Repeat echo today
-Cont. current meds (Crestor, Lyrica, Eliquis)
-Encourage use of IS
-OOB into chair/Ambulate
-Home likely today
Assessment / Plan
-
Assessment:
-S/p Right trans femoral TAVR with a 29 mm Medtronic Evolut FX device with pre-BAV and post BAV, by Leigha Fisher/Selina, 08/15/24, pod#1
-Severe symptomatic aortic stenosis, symptomatic
-LVEF 70-75% per intraop SAMY
-Critical gradients
-History of breast cancer status post surgery and radiation plus chemotherapy
-Diverticulosis
-Hypertension
-Hyponatremia
-Polymyalgia rheumatica
-GERD
-History of atrial fibrillation
-Seasonal allergies
-Hx UTIs
-Migraines
-Tinnitus
-Anxiety
-S/P cataracts
-S/P b/l TKR
-Acute postop blood loss/Anemia (stable without transfusion)
-Acute postop sinus tachycardia
Discussed patient care with: Cardiology, Nursing, Respiratory Therapy, Pharmacy and Care Team
Subjective
Procedure
Right trans femoral TAVR with a 29 mm Medtronic Evolut FX device with pre-BAV and post BAV, by Leigha Elizabeth, 08/15/24,
-
Date of Service: August 16, 2024
Pt c/o mild groin site discomfort, otherwise feels well
Objective Data
-
PT 14.6 Sec (11.4-14.6) 07/27/24 12:21
INR 1.11 07/27/24 12:21
APTT 31.7 Sec (23.4-35.0) 07/27/24 12:21
Vital Signs
Vital Signs
Temp Pulse Resp BP Pulse Ox
98.4 F 94 14 153/61 97
08/15/24 23:02 08/16/24 01:00 08/15/24 23:02 08/15/24 22:54 08/15/24 23:02
CT Intake/Output/Weight
08/15/24 08/15/24 08/16/24
06:59 18:59 06:59
Output Total 1000 / 1000
Balance -1000 / -1000
SaO2: 97 (RA)
Physical Exam
-
General: Awake, Oriented and AOx3
Cardiovascular: Regular rate & rhythm, No Murmurs, No Rub and No Gallop
Respiratory: Clear
Incision: Clean, Dry, Intact and Dressing Intact
Extremities: No Edema
Data Reviewed
-
Lab Results: Results Reviewed
Medications: Active Meds Reviewed
Chest X-Ray: Report Reviewed and Image Reviewed
ECG: Report Reviewed and Image Reviewed
[2024-08-16 04:07] VITALS: BP 142/67
[2024-08-16 04:17] VITALS: BMI 29.9
[2024-08-16] MEDS: TYLENOL 650 MG PO ×2 (04:24→10:26)
[2024-08-16 04:38] LABS: Hematocrit 30.9 % (37.0-47.0); Hemoglobin 10.7 g/dL (12.0-16.0); Mean Corp Hgb Conc. 34.6 g/dL (33.0-37.0); Mean Corpuscular Volume 89.6 fL (81.0-99.0); Platelet Count 120 10^3/uL (130-400); Red Blood Cell Count 3.45 10^6/uL (4.20-5.40); Red Cell Dist. Width 13.2 % (11.5-14.5); White Blood Cell Count 13.2 10^3/uL (4.8-10.8)
[2024-08-16 04:55] LABS: Blood Urea Nitrogen 13 mg/dl (7-17); Calcium 8.8 mg/dl (8.4-10.2); Carbon Dioxide 24 mmol/L (22-30); Chloride 101 mmol/L (98-107); Estimated Creatinine Clearance 88 ml/min; Glucose 118 mg/dl (70-99); Potassium 3.8 mmol/L (3.5-5.1); Sodium 132 mmol/L (135-145); eGFR > 60.00
[2024-08-16] MEDS: KCL 40 MEQ PO (06:26)
[2024-08-16 06:52] LABS: Magnesium 2.3 mg/dl (1.6-2.3)
[2024-08-16 08:00] VITALS: BP 164/77
--- NOTE | 2024-08-16 08:03 | W.PN.ANS.POP ---
Anesthesia Post Operative
- Anesthesia Post Op Note
Vital Signs Stable-See Nursing Note: Yes
Airway Patent: Yes
Adequate Pain Control: Yes
Change in Mental Status: No
Current Postoperative Nausea & Vomiting: No
Anesthesia Complications: No
General Anesthetic Recall: No
Unplanned Admission: No
Post Op Hydration Adequate: Yes
[2024-08-16] MEDS: ELIQUIS 5 MG PO (08:24)
[2024-08-16] MEDS: THERAGRAN 1 TABLET PO (08:24)
[2024-08-16] MEDS: ZESTRIL 40 MG PO (08:24)
[2024-08-16] MEDS: LYRICA 75 MG PO (08:24)
[2024-08-16] MEDS: TOPROL XL 25 MG PO (08:24)
[2024-08-16] MEDS: PROTONIX 40 MG PO (08:25)
[2024-08-16] MEDS: MIRALAX 17 GRAMS PO (08:28)
--- NOTE | 2024-08-16 09:07 | CM ---
Reviewed chart. Met with Mrs. Cooley to review discharge plans. She states prior to admission she resides with her spouse in a spilt level home without any steps to enter. She states she has two steps to get to her main living area and ten
steps to get to her bedroom/full bathroom. She states prior to admission she was independent with ambulation and adls. She states she has a walker, single point cane and wheelchair at home from previous knee surgery. She states she is not
currently using any DME in the home. She states she has a prescription plan and uses [facility]. She states her spouse will be around to check on her. She also states her daughter resides nearby and she has a supportive neighbor who will also
check on her. We reviewed a home visit by the Transitional Care Nurse. She is agreeable to a home visit. Medical work-up in progress. The discharge plan is to return home with her spouse and a home visit by the Transitional Care Nurse when
medically stable.
--- NOTE | 2024-08-16 09:34 | W.DCSUMMARY ---
Discharge Summary
Discharge Data
Date of Admission: 08/15/24
Date of Discharge: 08/16/24
-
Pending Results: No
Hospital Course
Primary care physician: Samanta Pineda
Outpatient design drafter chief: Danis Griffith
Inpatient consultants: [facility]
Procedures:
1. TAVR
Primary Diagnosis:
1. Severe nonrheumatic aortic stenosis
Secondary Diagnoses:
1. Hypertension
2. Polymyalgia rheumatica
3. GERD
4. Right breast cancer status postlumpectomy, radiation, and chemotherapy
5. History of atrial fibrillation
HPI: 74-year-old female was electively admitted on 08/15/2024 for TAVR
Hospital course: Patient underwent right trans femoral TAVR #29 mm Medtronic Evolut FX device with pre-BAV and post BAV, by Leigha Fisher/Selina. Valve deployed without incident. Patient was on Levophed for a brief time in the PACU and discontinued
on transition to telemetry. Postprocedure ECG with incomplete right bundle branch block which is unchanged from prior. Groin sites remained stable. On postoperative day #1, bilateral groin sites are stable and Eliquis was restarted. Mild
systolic ejection murmur right sternal border second intercostal space noted. Toprol-XL 25 mg a day was added per surgeon and clonidine was discontinued. Predischarge TTE reported an EF of 70 to 75% with AV gradients of 21 over 12 mmHg, and mild
paravalvular AI. Patient ambulated in hallways without incident and deemed stable for discharge to home.
Home medication changes:
Stop clonidine
Start Toprol XL 25 mg daily
Discharge Plan
-
Patient Disposition: Home (Routine Discharge)
Discharge Diagnosis/Procedures: TAVR
Condition: Good
Diet: Low Cholesterol and Low Sodium
Activity: No strenuous activity
Driving Restrictions: No driving for 2 weeks
Bathing Restrictions: OK to Shower
Specialty Instructions: Weigh Daily- Call MD for wt gain/loss 3 lbs overnight/5 lbs in 1 week
Referrals:
CT Transitional Care Nurse [Outside] - in one to two days
(
The Cardiothoracic Transitional Care Nurse will call you to set up a visit in 1-2 days.)
[facility] [Outside]
(Cardiac Rehab Orientation appointment and� First Exercise appointment is on September 08, 2024 at 10:30.
The Cardiac Rehab gym is located on the first floor of the [facility]ovascular [facility].)
Danis Griffith MD [Active] - 09/15/24 4:40 pm
Samanta Pineda MD [Family Provider] - in four to six weeks (Please make an appoinment in four to six weeks. )
Prescriptions:
New
acetaminophen 325 mg Tablet
650 mg PO Q4HPRN PRN (Reason: BLACKBURN, mild pain, or fever >101F) Qty: 0 0RF
metoprolol succinate 25 mg Tablet Extended Release 24 Hr
25 mg PO DAILY Qty: 30 1RF
Continued
cetirizine [Zyrtec] 10 mg Tablet
10 mg PO DAILY PRN (Reason: ALLERGIES)
docusate sodium [Stool Softener] 100 mg Capsule
100 mg PO DAILY PRN (Reason: CONSTIPATION)
zolpidem 12.5 mg Tablet,Ext Release Multiphase
12.5 mg PO HS PRN (Reason: SLEEP)
pregabalin [Lyrica] 25 mg Capsule
75 mg PO BID
omeprazole 40 mg Capsule,Delayed Release(Dr/Ec)
20 mg PO BID Qty: 0 0RF
cholecalciferol (vitamin D3) [Vitamin D3] 25 mcg (1,000 unit) Capsule
125 mcg PO QPM Qty: 0 0RF
Zepbound 2.5 mg/0.5 mL Pen Injector
2.5 mg SC QWEEK Qty: 0 0RF
Rx Instructions:
for 4 weeks
multivitamin Tablet
1 tab PO DAILY Qty: 0 0RF
letrozole 2.5 mg Tablet
2.5 mg PO DAILY Qty: 0 0RF
lisinopril 40 mg Tablet
40 mg PO BID Qty: 0 0RF
rosuvastatin 20 mg Tablet
20 mg PO HS Qty: 0 0RF
Eliquis 5 mg tablet
5 mg PO BID 30 Days Qty: 60 0RF
diltiazem HCl 180 mg Capsule,Extended Release 24hr
180 mg PO BID Qty: 0 0RF
Discontinued
clonidine HCl 0.1 mg Tablet
0.1 mg PO TID
Discharge Orders:
Discharge Patient (As Directed); Ordered 08/16/24
Ordered By: Priyanka Verdugo
Care Plan Goals
Care Plan Goals:
Problem: Readiness for enhanced knowledge related to diagnosis and treatment plan
Goal: Understand your diagnosis and treatment plan needs, including medications if applicable.
Instructions: Know your diagnosis, underlying causes and treatment plan options, including medications if applicable. Consult with your health care team to learn about your diagnosis and treatment plan, including medications if applicable.
Discharge Date and Time
Print Language: THAI
[2024-08-16 10:47] VITALS: BP 164/70
--- NOTE | 2024-08-16 11:12 | PTCARENOTE ---
received patient this am, walking rounds completed. bilat. groins intact, distal pulse palpable. patient stated that right groin is tender to touch. monitor shows NSR, VSS.
[2024-08-16 11:51] VITALS: BP 122/69
[2024-08-16 11:58] VITALS: BP 164/80
[2024-08-16] MEDS: CARDIZEM CD 180 MG PO (13:21)
--- NOTE | 2024-08-16 14:50 | W.PN.CD ---
Today's Communication / Plan
-
discharge to home
Impression / Plan
-
74 year old woman with severe (critical by gradient) symptomatic aortic stenosis, now POD1 status post transfemoral TAVR with Evolute Fx Plus 29 mm valve. Mild PVL on post deployment TTE remained stable today. She is doing well, ambulating without
issues. Telemetry with sinus rhythm. Echo reviewed. Plan for discharge to home today. Plan of care discussed with patient and .
Physical Exam
Vital Signs/Labs
Vital Signs
Temp Pulse Resp BP Pulse Ox
36.8 C 66 16 122/69 100
08/16/24 11:50 08/16/24 13:21 08/16/24 11:50 08/16/24 11:51 08/16/24 11:50
08/15/24 08/16/24 08/17/24
06:59 06:59 06:59
Actual Weight 79.7 kg 81.4 kg
08/16/24 04:15
08/16/24 04:15
PT 14.6 Sec (11.4-14.6) 07/27/24 12:21
INR 1.11 07/27/24 12:21
APTT 31.7 Sec (23.4-35.0) 07/27/24 12:21
Magnesium 2.3 mg/dl (1.6-2.3) 08/16/24 04:15
Physical Exam
Constitutional: No acute distress
Cardiovascular: Rhythm & rate is regular
Respiratory: Respiratory effort normal
Neuro/Psych: AO x 3
Data Reviewed
-
Date of Service: August 16, 2024
Echo: Tracing Personally Visualized and interpreted
Labs: Labs Reviewed by me
--- NOTE | 2024-08-16 14:51 | PTCARENOTE ---
D/C instructions given to patient, verbalizes understanding. INT D/C dm telemetry D/C'd, personal belongings packed and sent home with patient. D/C too home via wc accompanied by staff.
== END 2024-08-16 14:58 | disposition home or self-care (01) | DRG 267 ==
LOC: IVU 06:02
PROVIDERS: Nurse Practitioner; ADMITTING PHYSICIAN Thoracic Surgery (Cardiothoracic Vascular Surgery); FAMILY PHYSICIAN Internal Medicine
PROC: 02RF38N Replacement of Aortic Valve with Zooplastic Tissue, using Rapid Deployment Technique, Percutaneous Approach (ICD-10-PCS; 2024-08-15)
DX: I35.0 Nonrheumatic aortic (valve) stenosis (principal); Z00.6 Encounter for examination for normal comparison and control in clinical research program; D62 Acute posthemorrhagic anemia; E87.1 Hypo-osmolality and hyponatremia; I10 Essential (primary) hypertension; M35.3 Polymyalgia rheumatica; F41.9 Anxiety disorder, unspecified; K21.9 Gastro-esophageal reflux disease without esophagitis; I45.10 Unspecified right bundle-branch block; R00.0 Tachycardia, unspecified; I48.91 Unspecified atrial fibrillation; K57.90 Diverticulosis of intestine, part unspecified, without perforation or abscess without bleeding; Z85.3 Personal history of malignant neoplasm of breast; Z92.21 Personal history of antineoplastic chemotherapy; Z92.3 Personal history of irradiation; Z79.01 Long term (current) use of anticoagulants; Z87.440 Personal history of urinary (tract) infections
CPT/HCPCS: 93308; 33361; 36415; 71045; 71046; 76937; 80048; 80053; 81003; 82248; 83036; 83735; 85025; 85027; 85347; 85610; 85730; 86850; 86900; 86901; 87070; 93005; 93306; 93321; 93325; C1760; C1769; C1894; Q9967

== ENCOUNTER 2024-08-20 16:07 | Inpatient (IN) | payer MEDICARE, OTHER, SELFPAY ==
[2024-08-20] VITALS (25 sets, daily range): BP systolic 122–173; BP diastolic 52–92; BMI 28.9; BMI 29.1
[2024-08-20 12:26] LABS: % Basophils 0.9 % (0-2); % Eosinophils 2.2 % (0-6); % Immature Granulocytes 0.4 % (0-0.5); % Lymphocytes 9.9 % (20.5-51.1); % Monocytes 10.6 % (1.7-9.3); Absolute Basophils 0.1 10^3/uL (0-0.2); Absolute Eosinophils 0.2 10^3/uL (0-0.7); Absolute Lymphocytes 0.7 10^3/uL (1.2-3.4); Absolute Monocytes 0.8 10^3/uL (0.1-0.6); Absolute Neutrophils 5.6 10^3/uL (1.4-6.5); Hematocrit 33.9 % (37.0-47.0); Hemoglobin 11.4 g/dL (12.0-16.0); Mean Corp Hgb Conc. 33.6 g/dL (33.0-37.0); Mean Corpuscular Hgb 30.5 pg (27.0-31.0); Mean Corpuscular Volume 90.6 fL (81.0-99.0); Mean Platelet Volume 10.8 fL (7.4-10.4); Nucleated Red Blood Cells % 0 %; Platelet Count 145 10^3/uL (130-400); Red Blood Cell Count 3.74 10^6/uL (4.20-5.40); White Blood Cell Count 7.4 10^3/uL (4.8-10.8)
[2024-08-20 12:37] LABS: ALT (SGPT) 24 U/L (0-35); AST (SGOT) 23 U/L (14-36); Albumin 4.6 g/dl (3.5-5.0); Alkaline Phosphatase 64 U/L (38-126); Blood Urea Nitrogen 17 mg/dl (7-17); Calcium 9.3 mg/dl (8.4-10.2); Carbon Dioxide 25 mmol/L (22-30); Chloride 96 mmol/L (98-107); Estimated Creatinine Clearance 87 ml/min; Glucose 104 mg/dl (70-99); Potassium 4.8 mmol/L (3.5-5.1); Sodium 128 mmol/L (135-145); Total Bilirubin 0.6 mg/dl (0.2-1.3); Total Protein 6.6 g/dl (6.3-8.2); eGFR > 60.00
[2024-08-20 12:58] LABS: Troponin I 0.057 ng/ml
--- NOTE | 2024-08-20 13:10 | ED.GENMED ---
History of Present Illness
<Rose Barron PA-C - Last Filed: 08/20/24 21:30>
General
Chief Complaint: Heart Rate Problem
Source: patient
Exam Limitations: none
Time Seen by Provider: 08/20/24 13:04
Nursing documentation reviewed up to this point in time: agreed with
History of Present Illness
History of Present Illness:
This is a 74-year-old female with past medical history of A-fib on Eliquis, aortic stenosis 5 days status post TAVR, hypertension, hyperlipidemia presents emergency department today with concerns of an hour episode of palpitations and irregular
heart rate. 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 She is currently asymptomatic. She denies any chest pain
lightheadedness, dizziness, shortness of breath. She follows with Dr. Griffith and her surgery was done by Dr. Weller and Dr. Fisher.
Review of Systems
<Rose Barron PA-C - Last Filed: 08/20/24 21:30>
Review of Systems
All Other Systems: ROS reviewed and negative except as documented in HPI and ROS
Phy Exam
<Rose Barron PA-C - Last Filed: 08/20/24 21:30>
Physical Exam
Physical Exam:
General: Patient is well appearing and in no acute distress; non-toxic
Skin: Warm and dry, no rashes or lesions
Head: Normocephalic, atraumatic
Eyes: Sclera non-icteric. EOMs intact.
Cardiac: Regular rate and rhythm, no murmurs, no tenderness palpation of the external chest wall
Peripheral Vascular: No lower extremity swelling or edema
Pulm: Normal respiratory effort, no wheezes, rales, or rhonchi
Neuro: CN II-XII intact, no focal neurologic deficits.
Psychiatric: Appropriate mood and affect.
Course
<Rose Barron PA-C - Last Filed: 08/20/24 21:30>
Orders/Labs/Results
Orders:
Orders
08/20/24
Electrocardiogram (*1) Stat
Reason for Study: Chest Pain
Comment: DONE
08/20/24 Lunch
Cholesterol Lowering
At Your Request: Full Participation
Cholesterol Lowering: Sodium, 2 Gram
08/20/24 11:52
Electrocardiogram (*1) Urgent
Reason for Study: Palpitations
EKG- Treatment ONCE
08/20/24 12:08
Complete Blood Count/With Diff Urgent
Comprehensive Metabolic Panel Urgent
Troponin I Urgent
08/20/24 14:13
Electrocardiogram (*1) Urgent
Reason for Study: Bradycardia / Tachycardia
EKG- Treatment ONCE
08/20/24 14:32
CARDIOLOGY CONSULT Urgent
Consulting Provider: Kaur Gordon
Was physician already notified: Yes
08/20/24 15:52
Admit/Transfer Patient As Directed
Co-Sign Provider:
Level of Care: Inpatient admission
Assign to:: CVICU
Physician / Group: Heidi
Diagnosis: CHB
Reason for Hospitalization: Complete heart block
Expected length of stay greater than two midnights?: Yes
ELOS- Estimated Length of Stay in days: 3
I certify the patient meets the requirements for IP care: Yes
08/20/24 17:10
Acetaminophen [Tylenol] 1,000 mg PO Q6HPRN PRN
Cetirizine HCl [Zyrtec] 10 mg PO DAILYPRN PRN
Docusate Sodium [Colace] 100 mg PO DAILYPRN PRN
Nitroglycerin Sublingual [Nitrostat (Sublingual)] 0.4 mg SL [id number] PRN
08/20/24 17:10
Add On- LAB Routine
Tests Added?: tsh
Activity As Directed
Activity Level: Bedside Commode
Bladder Scan As Directed
Follow Bladder Retention/Intermittent Cath Algorithm?: Yes
Frequency: Per Retention Algorithm
Comment: as per intermittent urinary catheter algorithm
Bladder Scan As Directed
Follow Bladder Retention/Intermittent Cath Algorithm?: Yes
PRN if no void in __ hours: 6
Frequency: Per Retention Algorithm
If Bladder Scan Result >: 400
then:: Straight cath
ECG as needed As Directed
ECG as needed for:: Chest Pain
Other reason
Other reason for ECG as needed:: new suspicion of ACS
Comment: At onset of Chest Pain and then Q__H x 2. draw Troponin with each ECG
Additional Instructions:: at onset of chest pain or new suspicion of ACS:
-- ECG and Troponin urgent now
-- then ECG and Troponin with each ECG every 3 hours x total of 3,
including ED or other inpatient ECG/troponins.
Intake/ Output As Directed
Frequency: Per unit guidelines
Notify MD As Directed
Notify physician if: if patient has chest pain or new suspicion of ACS
Pneumatic Compression Sleeves As Directed
Type: Knee high
Straight Cath As Directed
Frequency: Per Retention Algorithm
Additional Instructions: as per intermittent urinary catheter algorithm
Straight Cath As Directed
Frequency: Per Retention Algorithm
Additional Instructions: straight cath as needed per acute urinary retention algorithm for 24 hrs
Additional Instructions: for bladder scan greater than 400 mL
Vital Signs As Directed
Frequency: Per unit guidelines
Weight As Directed
Frequency: Daily
Pulse Ox/spot Check [RESP] Urgent
Quantity: 1
Special Instructions: Pulse Oximetry on admission
DX Deep Vein Thrombosis Video Routine
08/20/24 17:22
Urinalysis Urgent
Date Specimen was Collected: 08/20/24
Time Specimen was Collected: 17:19
08/20/24 17:23
Complete Blood Count/With Diff Urgent
Comprehensive Metabolic Panel Urgent
Magnesium Urgent
Phosphorus Urgent
Protime/PTT Urgent
08/20/24 18:12
Zolpidem Tartrate [Ambien] 10 mg PO HSPRN PRN
08/20/24 20:00
Apixaban [Eliquis] 5 mg PO BID
Lisinopril [Zestril] 40 mg PO BID
Pantoprazole [Protonix] 40 mg PO BID
Pregabalin [Lyrica] 75 mg PO BID
08/20/24 22:00
Rosuvastatin Calcium [Crestor] 20 mg PO HS
08/21/24 06:00
Complete Blood Count/No Diff IN AM
Comprehensive Metabolic Panel IN AM
08/21/24 08:00
Cholecalciferol (Vitamin D3) [VITAMIN D3 (cholecalciferol)] 125 mcg PO DAILY
Multivitamin [Theragran] 1 tablet PO DAILY
Polyethylene Glycol Powder [Miralax] 17 grams PO DAILY
08/22/24 Breakfast
NPO
Allow oral meds: Yes
Allow clear liquids: No
Abnormal Lab Results
08/20/24
12:08
RBC 3.74 L 10^6/uL
(4.20-5.40)
Hgb 11.4 L g/dL
(12.0-16.0)
Hct 33.9 L %
(37.0-47.0)
MPV 10.8 H fL
(7.4-10.4)
Absolute Lymphs (auto) 0.7 L 10^3/uL
(1.2-3.4)
Absolute Monos (auto) 0.8 H 10^3/uL
(0.1-0.6)
Neutrophils % 76.0 H %
(42.2-75.2)
Lymphocytes % 9.9 L %
(20.5-51.1)
Monocytes % 10.6 H %
(1.7-9.3)
Sodium 128 L mmol/L
(135-145)
Chloride 96 L mmol/L
(98-107)
Glucose 104 H mg/dl
(70-99)
Troponin I 0.057 H* ng/ml
08/20/24 12:08
08/20/24 12:08
Vital Signs
Initial and Last Documented VS:
Initial Vital Signs
Temp Pulse Resp BP Pulse Ox
98.5 F 79 16 173/87 98
08/20/24 11:58 08/20/24 11:58 08/20/24 11:58 08/20/24 11:58 08/20/24 11:58
Last Documented Vital Signs
Temp Pulse Resp BP Pulse Ox
98.3 F 66 18 146/65 97
08/20/24 19:00 08/20/24 21:00 08/20/24 19:00 08/20/24 21:00 08/20/24 21:00
<Giovani Encinas MD - Last Filed: 08/20/24 14:54>
Orders/Labs/Results
Orders:
Orders
08/20/24
Electrocardiogram (*1) Stat
Reason for Study: Chest Pain
Comment: DONE
08/20/24 Lunch
Cholesterol Lowering
At Your Request: Full Participation
Cholesterol Lowering: Sodium, 2 Gram
08/20/24 11:52
Electrocardiogram (*1) Urgent
Reason for Study: Palpitations
EKG- Treatment ONCE
08/20/24 12:08
Complete Blood Count/With Diff Urgent
Comprehensive Metabolic Panel Urgent
Troponin I Urgent
08/20/24 14:13
Electrocardiogram (*1) Urgent
Reason for Study: Bradycardia / Tachycardia
EKG- Treatment ONCE
08/20/24 14:32
CARDIOLOGY CONSULT Urgent
Consulting Provider: Kaur Gordon
Was physician already notified: Yes
08/20/24 15:52
Admit/Transfer Patient As Directed
Co-Sign Provider:
Level of Care: Inpatient admission
Assign to:: CVICU
Physician / Group: Heidi
Diagnosis: CHB
Reason for Hospitalization: Complete heart block
Expected length of stay greater than two midnights?: Yes
ELOS- Estimated Length of Stay in days: 3
I certify the patient meets the requirements for IP care: Yes
08/20/24 17:10
Acetaminophen [Tylenol] 1,000 mg PO Q6HPRN PRN
Cetirizine HCl [Zyrtec] 10 mg PO DAILYPRN PRN
Docusate Sodium [Colace] 100 mg PO DAILYPRN PRN
Nitroglycerin Sublingual [Nitrostat (Sublingual)] 0.4 mg SL [id number] PRN
08/20/24 17:10
Add On- LAB Routine
Tests Added?: tsh
Activity As Directed
Activity Level: Bedside Commode
Bladder Scan As Directed
Follow Bladder Retention/Intermittent Cath Algorithm?: Yes
Frequency: Per Retention Algorithm
Comment: as per intermittent urinary catheter algorithm
Bladder Scan As Directed
Follow Bladder Retention/Intermittent Cath Algorithm?: Yes
PRN if no void in __ hours: 6
Frequency: Per Retention Algorithm
If Bladder Scan Result >: 400
then:: Straight cath
ECG as needed As Directed
ECG as needed for:: Chest Pain
Other reason
Other reason for ECG as needed:: new suspicion of ACS
Comment: At onset of Chest Pain and then Q__H x 2. draw Troponin with each ECG
Additional Instructions:: at onset of chest pain or new suspicion of ACS:
-- ECG and Troponin urgent now
-- then ECG and Troponin with each ECG every 3 hours x total of 3,
including ED or other inpatient ECG/troponins.
Intake/ Output As Directed
Frequency: Per unit guidelines
Notify MD As Directed
Notify physician if: if patient has chest pain or new suspicion of ACS
Pneumatic Compression Sleeves As Directed
Type: Knee high
Straight Cath As Directed
Frequency: Per Retention Algorithm
Additional Instructions: as per intermittent urinary catheter algorithm
Straight Cath As Directed
Frequency: Per Retention Algorithm
Additional Instructions: straight cath as needed per acute urinary retention algorithm for 24 hrs
Additional Instructions: for bladder scan greater than 400 mL
Vital Signs As Directed
Frequency: Per unit guidelines
Weight As Directed
Frequency: Daily
Pulse Ox/spot Check [RESP] Urgent
Quantity: 1
Special Instructions: Pulse Oximetry on admission
DX Deep Vein Thrombosis Video Routine
08/20/24 17:22
Urinalysis Urgent
Date Specimen was Collected: 08/20/24
Time Specimen was Collected: 17:19
08/20/24 17:23
Complete Blood Count/With Diff Urgent
Comprehensive Metabolic Panel Urgent
Magnesium Urgent
Phosphorus Urgent
Protime/PTT Urgent
08/20/24 18:12
Zolpidem Tartrate [Ambien] 10 mg PO HSPRN PRN
08/20/24 20:00
Apixaban [Eliquis] 5 mg PO BID
Lisinopril [Zestril] 40 mg PO BID
Pantoprazole [Protonix] 40 mg PO BID
Pregabalin [Lyrica] 75 mg PO BID
08/20/24 22:00
Rosuvastatin Calcium [Crestor] 20 mg PO HS
08/21/24 06:00
Complete Blood Count/No Diff IN AM
Comprehensive Metabolic Panel IN AM
08/21/24 08:00
Cholecalciferol (Vitamin D3) [VITAMIN D3 (cholecalciferol)] 125 mcg PO DAILY
Multivitamin [Theragran] 1 tablet PO DAILY
Polyethylene Glycol Powder [Miralax] 17 grams PO DAILY
08/22/24 Breakfast
NPO
Allow oral meds: Yes
Allow clear liquids: No
Abnormal Lab Results
08/20/24
12:08
RBC 3.74 L 10^6/uL
(4.20-5.40)
Hgb 11.4 L g/dL
(12.0-16.0)
Hct 33.9 L %
(37.0-47.0)
MPV 10.8 H fL
(7.4-10.4)
Absolute Lymphs (auto) 0.7 L 10^3/uL
(1.2-3.4)
Absolute Monos (auto) 0.8 H 10^3/uL
(0.1-0.6)
Neutrophils % 76.0 H %
(42.2-75.2)
Lymphocytes % 9.9 L %
(20.5-51.1)
Monocytes % 10.6 H %
(1.7-9.3)
Sodium 128 L mmol/L
(135-145)
Chloride 96 L mmol/L
(98-107)
Glucose 104 H mg/dl
(70-99)
Troponin I 0.057 H* ng/ml
08/20/24 12:08
08/20/24 12:08
Vital Signs
Initial and Last Documented VS:
Initial Vital Signs
Temp Pulse Resp BP Pulse Ox
98.5 F 79 16 173/87 98
08/20/24 11:58 08/20/24 11:58 08/20/24 11:58 08/20/24 11:58 08/20/24 11:58
Last Documented Vital Signs
Temp Pulse Resp BP Pulse Ox
98.3 F 66 18 146/65 97
08/20/24 19:00 08/20/24 21:00 08/20/24 19:00 08/20/24 21:00 08/20/24 21:00
<Rose Barron PA-C - Last Filed: 08/20/24 21:30>
MDM/Problems Addressed
Differential Diagnosis Includes:
ddx include arrhythmia, electrolyte derangement, anemia
MDM/Problems Addressed:
74-year-old female with past medical history of aortic valve replacement status post TAVR, A-fib, presents emergency department with concerns of the hour episode of lightheadedness and cardiac arrhythmia. Here in the emergency department she was
noted to help with sinus rhythm. She was found to be in third-degree heart block for period time. Patient was immediately placed on pacer pads. Blood pressure stable. Dr. Gordon from cardiology came down to see patient in emergency
department, patient will be admitted to cardiology service and will have pacemaker placed on Thursday.
<Rose Barron PA-C - Last Filed: 08/20/24 21:30>
*Pulse Oximetry
Patient hypoxic: no
*EKG
Interpreted by ED Provider?: Yes
EKG Intrepretation Date: 08/20/24
Interpretation: abnormal
Comparison EKG: changes noted
Heart Rate: 44
Rate: bradycardiac
Interval: third degree heart block
*[facility] Interpretation
Rate: bradycardiac
Interpretation: abnormal
Heart Rate: 55
Rhythm: sinus
*Critical Care Note
Total Time (30-74mins, 75-104mins- exclusive of procedures): Not Applicable
Data Reviewed
Review of Other/Old Records Reveals: Records (Reviewed discharge summary from 08/16/2024 patient seen for TAVR)
Source: patient and records
<Rose Barron PA-C - Last Filed: 08/20/24 21:30>
Patient Management
Escalation/DeEscalation of care consider admission/obs:
Patient to be admitted through cardiology service
<Rose Barron PA-C - Last Filed: 08/20/24 21:30>
Update Note
Update Note:
Patient went to go use the bathroom and when she came back from the bathroom, she started to feel light headed again. Cardiac monitoring reveals occasional sinus pauses. Repeat EKG now reveals 3rd degree heart block. Pacer pads placed. BP stable.
ED Attending Note
<Rose Barron PA-C - Last Filed: 08/20/24 21:30>
-
Portions of this chart may have been created with voice recognition software.� Occasional wrong word or��sound alike� substitutions may have occurred due to the inherent limitations of voice recognition software.
<Giovani Encinas MD - Last Filed: 08/20/24 14:54>
ED Attending Note
Patient seen and examined by attending physician: Yes
ED Attending Note:
Patient TAVR procedure 5 days ago secondary to aortic stenosis and atrial fibrillation on Eliquis, presents to ED secondary to sudden onset of sensation of 'heartbeat slowing down' associated with lightheadedness, while in sitting position, as
patient was about to have her breakfast. Denies chest pain. Denies loss of consciousness. Denies nausea or vomiting. Denies headache. Patient has been taking metoprolol for the past 4 days, upon discharge, secondary to SVT. Patient did take a
dose of metoprolol this morning. Denies previous history of similar symptoms.
Physical Exam
General: mild distress, not acutely ill. afebrile.
Head: nc/at. eomi
Neck: supple. normal range of motion.
Heart: irregular, no murmur.
Lungs: no acute respiratory distress. clear bilaterally
Abdomen: normal bowel sounds. not tender.
Neuro: alert and oriented x 3. no focal neurological deficits
Skin: no rash
Psychiatric: well kept. interactive and cooperative
Extremities: no edema. no calf tenderness.
During the course evaluation, patient noted to exhibit intermittent pause associated with bigeminy. However, patient also noted to have brief episodes of complete heart block, noted on twelve-lead EKG. Patient placed on ZOLL pads. Patient remains
normotensive without any significant distress. Patient evaluated in ED by Dr. Gordon, cardiology. Patient will be admitted for further evaluation and treatment, including potential pacemaker placement.
Critical care statement: A total of 40 minutes of critical care time was provided for this patient. This includes management of unstable vital signs, evaluation of the patient at bedside, reviewing the patient's pertinent medical records, discussion
with consultants, review of old EKGs and review of pertinent medical records. This time with separate from time utilized to perform the aforementioned documented procedures
Discharge Plan
Departure
Patient Disposition: Admit
Date of Disposition: 08/20/24
Time of Disposition: 14:49
Admit to: CVICU
Presentation/result/management discussed w/ accepting MD/DO:
Condition: Fair
Discharge Problem:
Third degree AV block
Interventions
Interventions:
*General Assessment Last Done: 08/20/24 12:31
*Neglect/Abuse Screening Last Done: 08/20/24 11:58
*Nursing Disposition Last Done: 08/20/24 17:47
ED- Cardiac Assessment Last Done: 08/20/24 12:31
ED- Pulmonary Assessment Last Done: 08/20/24 12:31
Discharge Date and Time
Discharge Date/Time: 08/20/24 17:48
--- NOTE | 2024-08-20 14:54 | HPS.HSE ---
Family Physician
-
Family Physician: Samanta Pineda
Chief Complaint
-
funny heart rhtyhm
History of Present Illness
74-year-old female with a past medical history of hypertension, paroxysmal atrial fibrillation, hyperlipidemia, mildly dilated ascending aorta, PMR, right sided breast cancer status post chemoradiation and severe status post TAVR with a 29 mm
transcatheter aortic valve on 08/16/2023 Who presents for evaluation of lightheadedness and perception of low heart rate and palpitations this a.m. On discharge from recent TAVR procedure her clonidine was changed to beta-radha as brief episode of
SVT seen post procedure. She typically takes diltiazem as well. She states she was feeling great at home until this morning. She can tell when she is in a funny heart rhythm as she has a weird sense in her chest. Otherwise, she feels well. No
chest pain or shortness of breath. Initially telemetry showed a brief run of high-grade AV block this developed into complete heart block seen on EKG while ambulating to the bathroom.
Medical History
Past Medical History
Past Medical History: Reports Arrhythmia (PAF), Cancer (Breast cancer on the right side status post chemoradiation complicated by peripheral neuropathy as a result of these therapies.), HTN, Valvular Disease (Severe status post TAVR 08/15/2023)
and Other (Polymyalgia rheumatica)
Past Surgical History: Reports Cardiac (TAVR 08/15/2023)
Social History
Tobacco: Non-smoker
Alcohol: Occasional (1-2 times every other week)
Personal:
Living: With Family
Employment: Retired (Nurse)
Family History
Family History: Not pertinent
Allergies / Home Medications
Allergies reflects when Allergies were last updated in [facility].
Home Medications with original date entered in [facility]
Allergy/Medication List:
Levaquin
Review of Systems
-
A 12 point ROS was completed and negative except as noted: Yes
Physical Exam
Vital Signs
Vital Signs
Temp Pulse Resp BP Pulse Ox
98.5 F 48 13 161/59 99
08/20/24 11:58 08/20/24 14:30 08/20/24 14:30 08/20/24 14:30 08/20/24 14:30
Physical Exam
General: Well Developed, Well Nourished, No Apparent Distress and Comfortable
HEENT: NormoCephalic and Moist mucous membranes
Respiratory: Clear; No Wheezes, Rales or Rhonchi
Cardiac: S1/S2, Bradycardia and Murmur (1/6 systolic ejection murmur at the right upper sternal border)
GI: Soft, Non Tender and Non Distended
Musculoskeletal: No Clubbing, No Cyanosis and No Edema
Neuro: AO x 3
Laboratory Results
-
08/20/24 12:08
08/20/24 12:08
Laboratory Results
Total Bilirubin 0.6 mg/dl (0.2-1.3) 08/20/24 12:08
AST 23 U/L (14-36) 08/20/24 12:08
ALT 24 U/L (0-35) 08/20/24 12:08
Alkaline Phosphatase 64 U/L (38-126) 08/20/24 12:08
Troponin I 0.057 ng/ml H* 08/20/24 12:08
Data Reviewed
-
Diagnostic Radiology: Other (ECG shows sinus rhythm complete heart block at 44 bpm. )
Impression/Plan
-
IMPRESSION: 74-year-old female with a past medical history of hypertension, paroxysmal atrial fibrillation on Eliquis, AAS status post TAVR 08/15/2024 presents with complete heart block.
Primary [employer]p Of [employer]: Dr Griffith
Complete heart block: Intermittent, vital signs stable, will need ICU level observation. Pacer pads in place.
-Will admit to the CVICU for intensive monitoring
-Case discussed with Dr. Fuentes from electrophysiology who will plan on a permanent pacemaker implantation on Thursday unless she becomes hemodynamically unstable.
-will hold Eliquis the am of the procedure
-NPO p mn on Thursday
-hold av fam blocking agents
PAF: typically on diltiazem and new bb, hold for now.
-continue eliquis and hold the am of the procedure
HTN: montinor as will need to hold diltiazem and metoprolol
-continue lisinopril
-will add hydralazine temporarily
Peripheral neuropathy;
-continue lyrica
Hyponatremia:
-appears subacute but slightly worse, monitor. If porgresses will c/s medicine
-she appears euvolemic.
h/o breast ca
Prognosis: gaurded given CHB
Critical care time spent at the bedside, in discussion with ED PA, family ( and daughter) at the bedside was 40 minutes.
Data:
s/p TAVR with 29 mm transcatheter aortic valve on 08/15/2023
TTE: CONCLUSIONS
Normal biventricular size and systolic function without regional wall motion
abnormality. LVEF 70-75%.
Well-seated TAVR valve with normal gradients (21/12 mmHg) and mild paravalvular
AR.
Echocardiogram is unchanged from limited post-TAVR echo on 08/15/24.
--- NOTE | 2024-08-20 17:15 | PTCARENOTE ---
Pt admitted to CVICU 2260. Admission history completed. Pt assessed while she was lying in bed. Pt alert and oriented x4. FREEDMAN with equal strength throughout. C/o BLACKBURN /-see SEP. SR with 1st degree AVB on tele with rates in the 70s. BP 161/71.
Bilateral radial and DP pulses palpable. no edema noted. POX 97% on RA. Lungs clear throughout. No cough noted. Abdomen soft, nontender. +BS. Last BM earlier this morning per patient. Voided clear yellow urine on the commode, UA sent. Left forearm
20g PIV intact. Left forearm abrasion, MARTIN. Right groin TAVR site approximated, APPRAISER [employer]. Left groin TAVR site approximated, MARTIN, ecchymotic. Admission weight, labs, and UA completed.
[2024-08-20 17:39] LABS: % Basophils 0.9 % (0-2); % Eosinophils 1.8 % (0-6); % Immature Granulocytes 0.4 % (0-0.5); % Lymphocytes 12.1 % (20.5-51.1); % Monocytes 8.9 % (1.7-9.3); % Neutrophils 75.9 % (42.2-75.2); Absolute Basophils 0.1 10^3/uL (0-0.2); Absolute Eosinophils 0.1 10^3/uL (0-0.7); Absolute Monocytes 0.7 10^3/uL (0.1-0.6); Mean Corp Hgb Conc. 34.4 g/dL (33.0-37.0); Mean Corpuscular Hgb 30.6 pg (27.0-31.0); Mean Corpuscular Volume 89.1 fL (81.0-99.0); Mean Platelet Volume 10.7 fL (7.4-10.4); Nucleated Red Blood Cells % 0 %; Platelet Count 158 10^3/uL (130-400); Red Blood Cell Count 3.59 10^6/uL (4.20-5.40); White Blood Cell Count 7.9 10^3/uL (4.8-10.8)
[2024-08-20 17:40] LABS: Urine Albumin Negative (Neg - Trace); Urine Bilirubin Negative (Negative); Urine Character Clear (Clear); Urine Glucose Negative (Negative); Urine Ketone Negative (Negative); Urine Leukocyte Negative (Negative); Urine Nitrite Negative (Negative); Urine Occult Blood Negative (Negative); Urine Urobilinogen Negative (Neg - 1+)
[2024-08-20 17:41] LABS: Urine Color Straw
[2024-08-20 17:51] LABS: INR 1.24; PT 15.9 Sec (11.4-14.6)
[2024-08-20 17:52] LABS: APTT 38.5 Sec (23.4-35.0)
[2024-08-20 18:01] LABS: ALT (SGPT) 24 U/L (0-35); AST (SGOT) 21 U/L (14-36); Albumin 4.4 g/dl (3.5-5.0); Alkaline Phosphatase 70 U/L (38-126); Blood Urea Nitrogen 14 mg/dl (7-17); Calcium 8.8 mg/dl (8.4-10.2); Carbon Dioxide 23 mmol/L (22-30); Chloride 101 mmol/L (98-107); Estimated Creatinine Clearance 87 ml/min; Glucose 92 mg/dl (70-99); Magnesium 1.9 mg/dl (1.6-2.3); Phosphorus 3.8 mg/dl (2.5-4.5); Potassium 4.2 mmol/L (3.5-5.1); Sodium 131 mmol/L (135-145); Total Bilirubin 0.7 mg/dl (0.2-1.3); Total Protein 6.3 g/dl (6.3-8.2); eGFR > 60.00
[2024-08-20] MEDS: TYLENOL 1000 MG PO (18:17)
[2024-08-20 19:00] LABS: TSH 1.19 uIU/ml (0.47-4.68)
--- NOTE | 2024-08-20 20:00 | PTCARENOTE ---
Assumed care of patient at 1900. Patient found in bed at time of assessment. Lung sounds are clear and equal bilaterally, saO2 97% on RA. Heart sounds have a regular rate and rhythm. Patient is SR with first degree AV block on the monitor. Patient
has normal palpable pulses and no observable edema. Patient has active BS in all four quadrants and is voiding clear yellow in the BSC. There is a L FA 20G PIV available for intermittent infusion. Patient has bilateral groin punctures from admission
last week where patient received TAVR that are scabbed MARTIN. There is ecchymosis present around L groin site soft nontender. Assisted patient to commode without difficulty. VSS. Call aguilar within reach.
[2024-08-20] MEDS: CRESTOR PO (20:03)
[2024-08-20] MEDS: PROTONIX 40 MG PO (20:03)
[2024-08-20] MEDS: ELIQUIS 5 MG PO (20:04)
[2024-08-20] MEDS: ZESTRIL 40 MG PO (20:04)
[2024-08-20] MEDS: LYRICA 75 MG PO (20:04)
[2024-08-21] VITALS (21 sets, daily range): BP systolic 101–171; BP diastolic 45–90; BMI 28.8
[2024-08-21] MEDS: TYLENOL 1000 MG PO ×3 (00:10→14:10)
--- NOTE | 2024-08-21 00:30 | PTCARENOTE ---
Patient reassessed. VSS. Tyelnol administered for headache. Remains SR with first deg on the monitor. Call aguilar within reach.
--- NOTE | 2024-08-21 04:30 | PTCARENOTE ---
Patient reassessed. VSS. No c/o pain. Labs obtained. Patient administered own hygiene care using provided towels and washcloths. Multiple voids overnight. Call aguilar within reach.
[2024-08-21 04:55] LABS: Hematocrit 31.5 % (37.0-47.0); Hemoglobin 10.8 g/dL (12.0-16.0); Mean Corp Hgb Conc. 34.3 g/dL (33.0-37.0); Mean Corpuscular Hgb 30.9 pg (27.0-31.0); Mean Corpuscular Volume 90.3 fL (81.0-99.0); Mean Platelet Volume 11.1 fL (7.4-10.4); Platelet Count 144 10^3/uL (130-400); Red Blood Cell Count 3.49 10^6/uL (4.20-5.40); White Blood Cell Count 7.1 10^3/uL (4.8-10.8)
[2024-08-21 05:07] LABS: ALT (SGPT) 26 U/L (0-35); AST (SGOT) 37 U/L (14-36); Albumin 4.4 g/dl (3.5-5.0); Alkaline Phosphatase 48 U/L (38-126); Blood Urea Nitrogen 12 mg/dl (7-17); Carbon Dioxide 21 mmol/L (22-30); Chloride 101 mmol/L (98-107); Estimated Creatinine Clearance 87 ml/min; Glucose 88 mg/dl (70-99); Potassium 4.9 mmol/L (3.5-5.1); Sodium 131 mmol/L (135-145); Total Protein 6.6 g/dl (6.3-8.2); eGFR > 60.00
[2024-08-21] MEDS: VITAMIN D3 (cholecalciferol) 125 MCG PO (07:48)
[2024-08-21] MEDS: PROTONIX 40 MG PO ×2 (07:48→20:59)
[2024-08-21] MEDS: ZESTRIL 40 MG PO ×2 (07:48→20:59)
[2024-08-21] MEDS: LYRICA 75 MG PO ×2 (07:48→20:59)
[2024-08-21] MEDS: THERAGRAN 1 TABLET PO (07:48)
[2024-08-21] MEDS: ELIQUIS 5 MG PO ×2 (07:48→20:59)
[2024-08-21] MEDS: MIRALAX 17 GRAMS PO (07:50)
--- NOTE | 2024-08-21 09:07 | PTCARENOTE ---
Received pt from [employer] food shift lead RN; pt AAOx3; NSR on monitor and VSS; Lungs clear; positive bowel sounds; pt voiding clear yellow urine; palpable pulses throughout; no edema; see nursing documentation for further details.
--- NOTE | 2024-08-21 10:19 | W.PN.CD ---
Today's Communication / Plan
-
npo p mn for possible ppm
hold am dose of Eliquis
holding avn agents
ok to down grade to IVU
Impression / Plan
-
IMPRESSION: 74-year-old female with a past medical history of hypertension, paroxysmal atrial fibrillation on Eliquis, AAS status post TAVR 08/15/2024 presents with complete heart block.
Primary Assistant Community Director: Dr Griffith
Complete heart block: Intermittent, vital signs stable,
-currently in NSR, will transfer to IVD
-Case discussed with Dr. Fuentes from electrophysiology who will plan on a permanent pacemaker implantation on Thursday unless she becomes hemodynamically unstable.
-will hold Eliquis the am of the procedure
-NPO p mn on Thursday
-hold av fam blocking agents
-She wonders as rhythm has improved off avnodal agents if PPM neccessary. I explained my opinion that given the indication for AV fam blocking agents of PAF, pSVT and dilated aortic root, ppm would protect from CHB while AVB would help treat
PAF/PSVT/Aoritc dilation. 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
-She will discuss with Dr Fuentes tomorrow and make the ultimate decision with him tomorrow
PAF: typically on diltiazem and new bb, hold for now.
-continue eliquis and hold the am of the procedure
HTN: montinor as will need to hold diltiazem and metoprolol
-continue lisinopril
-will add hydralazine prn temporarily
Peripheral neuropathy;
-continue lyrica
Hyponatremia:
-appears subacute but slightly worse, monitor. If porgresses will c/s medicine
-she appears euvolemic.
h/o breast ca
Prognosis: gaurded given CHB
Family () at the bedside was 40 minutes.
Subjective:
She feels well.
Data:
s/p TAVR with 29 mm transcatheter aortic valve on 08/15/2023
TTE: CONCLUSIONS
Normal biventricular size and systolic function without regional wall motion
abnormality. LVEF 70-75%.
Well-seated TAVR valve with normal gradients (21/12 mmHg) and mild paravalvular
AR.
Echocardiogram is unchanged from limited post-TAVR echo on 08/15/24.
Physical Exam
Vital Signs/Labs
Vital Signs
Temp Pulse Resp BP Pulse Ox
98.1 F 73 20 101/52 98
08/21/24 08:00 08/21/24 08:45 08/21/24 08:00 08/21/24 08:00 08/21/24 09:11
08/20/24 08/21/24 08/22/24
06:59 06:59 06:59
Actual Weight 78.6 kg
08/21/24 04:16
08/21/24 04:16
PT 15.9 Sec (11.4-14.6) H 08/20/24 17:23
INR 1.24 08/20/24 17:23
APTT 38.5 Sec (23.4-35.0) H 08/20/24 17:23
Magnesium 1.9 mg/dl (1.6-2.3) 08/20/24 17:23
TSH 1.19 uIU/ml (0.47-4.68) 08/20/24 17:23
LAB Results
08/20/24
12:08
Troponin I 0.057 H*
Physical Exam
Constitutional: No acute distress
Cardiovascular: Rhythm & rate is regular, Pedal edema is absent, JVD pressure is normal, Systolic murmur absent and Diastolic murmur absent
Respiratory: Respiratory effort normal, Lungs clear to auscul., Wheeze Absent, Crackles Absent and Rhonchi Absent
Neuro/Psych: AO x 3
Data Reviewed
-
Date of Service: August 21, 2024
EKG: Other (tele pvcs, nsr)
--- NOTE | 2024-08-21 12:02 | PTCARENOTE ---
Assessment unchanged; NSR on monitor and VSS; family at bedside.
--- NOTE | 2024-08-21 20:25 | PTCARENOTE ---
Received from [employer]- pt transported via chair to [facility]- pt alittle dizzy after the travel- but HR in the 90s when placed on the monitor. Hand off completed. Pt oriented to room.
[2024-08-21] MEDS: CRESTOR 20 MG PO (20:59)
[2024-08-21] MEDS: AMBIEN 10 MG PO (22:56)
[2024-08-22] VITALS (10 sets, daily range): BP systolic 126–174; BP diastolic 58–89; BMI 28.8
[2024-08-22] MEDS: TYLENOL 1000 MG PO ×3 (03:57→23:27)
[2024-08-22] MEDS: ZESTRIL 40 MG PO ×2 (09:10→20:17)
[2024-08-22] MEDS: LYRICA 75 MG PO ×2 (09:12→20:16)
[2024-08-22] MEDS: VITAMIN D3 (cholecalciferol) 125 MCG PO (09:12)
[2024-08-22] MEDS: THERAGRAN 1 TABLET PO (09:12)
[2024-08-22] MEDS: PROTONIX 40 MG PO ×2 (09:12→20:17)
[2024-08-22] MEDS: MIRALAX PO (09:12)
--- NOTE | 2024-08-22 12:39 | W.PN.CD ---
Today's Communication / Plan
-
- PPM today
- Resume Metoprolol after PPM
Impression / Plan
-
IMPRESSION: 74-year-old female with a past medical history of hypertension, paroxysmal atrial fibrillation on Eliquis, AAS status post TAVR 08/15/2024 presents with complete heart block.
Primary Strategies Analyst: Dr Griffith
Complete heart block: Intermittent, vital signs stable,
-currently in NSR,
-tachy maico syndrome
-With diltiazem/ metoprolol held, had episodes of tachycardia
-NPO now.
-Discussed conservative vs PPM. Patient reports that she had multiple episodes of bradycardia prior to arrival to the ER and wants to proceed with PPM. She was quite symptomatic with AV block though had adequate junctional escape.
-With Medtronic AV valve, the AV block might get worse overtime. Will proceed with PPM today
PAF: typically on diltiazem and new bb, hold for now.
-continue eliquis and hold the am of the procedure
HTN: montinor as will need to hold diltiazem and metoprolol
-continue lisinopril
-will add hydralazine prn temporarily
Peripheral neuropathy;
-continue lyrica
Hyponatremia:
-appears subacute but slightly worse, monitor. If porgresses will c/s medicine
-she appears euvolemic.
h/o breast ca
Prognosis: gaurded given CHB
Family () at the bedside was 40 minutes.
Subjective:
She feels well.
Data:
s/p TAVR with 29 mm transcatheter aortic valve on 08/15/2023
TTE: CONCLUSIONS
Normal biventricular size and systolic function without regional wall motion
abnormality. LVEF 70-75%.
Well-seated TAVR valve with normal gradients (21/12 mmHg) and mild paravalvular
AR.
Echocardiogram is unchanged from limited post-TAVR echo on 08/15/24.
Physical Exam
Vital Signs/Labs
Vital Signs
Temp Pulse Resp BP Pulse Ox
98.2 F 82 18 137/68 97
08/22/24 07:58 08/22/24 07:58 08/22/24 07:58 08/22/24 06:51 08/22/24 07:58
08/21/24 08/22/24 08/23/24
06:59 06:59 06:59
Actual Weight 78.6 kg 78.4 kg
08/21/24 04:16
08/21/24 04:16
PT 15.9 Sec (11.4-14.6) H 08/20/24 17:23
INR 1.24 08/20/24 17:23
APTT 38.5 Sec (23.4-35.0) H 08/20/24 17:23
Magnesium 1.9 mg/dl (1.6-2.3) 08/20/24 17:23
TSH 1.19 uIU/ml (0.47-4.68) 08/20/24 17:23
LAB Results
08/20/24
12:08
Troponin I 0.057 H*
Physical Exam
Constitutional: No acute distress and Comfortable
EENT: Anicteric and Moist mucous membranes
Cardiovascular: Rhythm & rate is regular, Pedal edema is absent and JVD pressure is normal
Respiratory: Respiratory effort normal, Lungs clear to auscul. and Wheeze Absent
GI: Soft, Non tender and Normal bowel sounds
Neuro/Psych: Alert, Oriented, AO x 3 and Motor deficits absent
Other: Cardiac Device Site
Data Reviewed
-
Date of Service: August 22, 2024
Medical Decision Making: Reviewed Test Results, Test Interpretation and Review of Case with other Provider
EKG: Tracing Personally Visualized and interpreted
Echo: Report Reviewed by me
Labs: Labs Reviewed by me
Old Records: Reviewed
--- NOTE | 2024-08-22 12:43 | ITS.CL.PACE ---
Gasoline Plant Operator - Pacemaker Implant
Pacemaker Implant
Procedure Report:
Dual Chamber Pacemaker Placement:
Ms. Cooley is a very pleasant 74 yrs old woman with h/o TAVR on 08/15/24 and presented with intermittent complete heart block and Tachy Jerry syndrome. She is recommended for PPM placement.�
Indications: Intermittent complete heart block with Tachy Jerry syndrome
Date of the Procedure: 08/22/2024
Pre-Operative Diagnosis: Intermittent complete heart block with Tachy Jerry syndrome
Post-Operative Diagnosis: Intermittent complete heart block with Tachy Jerry syndrome
Procedure Performed: DUAL CHAMBER PACEMAKER IMPLANTATION
Performing Physician:
Debbie Fuentes MD
Anesthesia:
See anesthesia records
Pre-operative antibiotics:
Ancef
Detailed Description of the Procedure:
The patient was identified using hospital identification and informed consent obtained for the procedure. The risks were explained including, but not limited to: Bleeding, infection, arrhythmia, stroke, vascular/cardiac/lung puncture, surgery,
pacemaker dependency/device malfunction. All questions were answered.
The patient was brought to the electrophysiology laboratory in stable condition in fasting state. Continuous electrocardiographic and hemodynamic monitoring was initiated. The initial rhythm was sinus rhythm.
A surgical pause and time out was performed immediately prior to the procedure with review of her medical history, recent labs, allergies and medications with site of procedure identified and consent noted in the chart. Antibiotics pre operatively
given. All team members concurred.
The procedure site was meticulously prepared with surgical scrub and allowed to dry with no pooling. Sterile draping was applied to cover the procedure site. The image intensifier was draped with sterile bag and positioned over the patient.
The left infraclavicular region was prepped and draped in the usual sterile fashion. Local anesthesia was administered subcutaneously using 1% lidocaine / Bupivacaine. The left cephalic vein cutdown was attempted. There was a small cephalic noted.
Following infiltration with local anesthetic, the axillary vein was accessed using the fluoroscopic guidance using the micro-puncture apparatus. The vascular sheaths were introduced for lead access. The leads were advanced into the right ventricle
and the right atrium.
The right ventricular lead was secured in position with an active fixation technique at the apical septal location.
The atrial lead was deployed to right atrial appendage and anchored with active fixation.�
There was excellent sensing, pacing, and impedance from the leads, with no diaphragmatic stimulation at 10 V output.�Bovie cautery, antibiotics, and fluoroscopy were used.
The sheaths were withdrawn, and the thresholds remained acceptable. The leads were secured in position at the venous entry site with 2-0 Ethibond. A pocket was fashioned contiguous to the incision.
A pursestring suture with 2-0 Vicryl was a deployed around the entry of the leads to secure the bleeding.
The electrode terminals were connected to the pulse generator, which was placed into the pocket. The wound was irrigated thoroughly with antibiotic solution. The pacemaker was secured to the underlying fascia with 2-0 Ethibond suture.
The wound was closed in 3 layers using 2-0 V Loc then 2 layers of 4-0 V loc sutures to the dermis. Steri-Strips and Aquacel applied to the wound.
Procedure End:
The procedure was tolerated well.
Estimated Blood loss:
5 cc
Specimens Removed:
No cultures and no specimens were obtained. No intraoperative pathology was identified.
Fluoro time:
2.2min / 4.75mGy
Urine output:
None
Packs / Drains/ Tubes:
None
Instrument / Sponge Count Correct:
Yes
Complications of the Procedure:
None
Condition of Patient at Time of Transfer:
Hemodynamically stable with no neurological or vascular compromise.
Device information:�
Generator: [employer]; Model: W1DR01; Serial # [id number]
Atrial Lead: [employer]; Model: 5076-45; Serial # [id number]
Measured data in the right atrium was sensing of 1.6 mV, impedance of 513 ohms and threshold of 0.5 V at 0.4ms.
RV Lead: Medtronic; Model: 5076-52; Serial # [id number]
Measured data in the RV lead was sensing of 4.5mV, impedance of 589 ohms and threshold of 0.5 V at 0.4ms�
Jerry parameter settings were AAIR <=>DDDR 60-130 bpm. �
����������� Mode Switch: On
����������� Paced AV interval: 180ms
����������� Sensed AV interval: 150 ms.
����������� Rate Adaptive A-V Interval: Off
Output� parameters:
����������������������� Amplitude (V)������������� Pulse Width (ms)������� Sensitivity (mV)
����������� RA: ����� 3.5 ����������������� ����������� 0.4������������������ ����������� 0.3
����������� RV:������ 3.5������������������ ����������� 0.4������������������ ����������� 0.9
Summary:
Successful implantation of MRI compatible dual chamber Medtronic pacemaker
Results/Recommendations:
-Please follow up CXR�
1. Please provide patient with adequate pain control�
Instructions to be given to patient:�
- Please follow up with [facility] at [address] [place] [address] ([phone]) to get your wound checked within 14 days of your discharge.
- Do not wet incision site until after it is evaluated at cardiology clinic. No showers until then. Sponge baths are OK.�
- No swimming until cleared by the cardiology clinic.
- Do not lift left elbow above shoulder, particularly with sudden jerking movements, for 1 month�
- Do not lift anything weighing more than 10 pounds with the left arm for 1 month�
- If you notice any fevers, shortness of breath, lightheadedness, chest pain, or worsening swelling in the wound site, please contact the arrhythmia clinic, contact your pharmacy innovation assistant, or present to the hospital for evaluation.�
Debbie Fuentes MD
Electrophysiology
--- NOTE | 2024-08-22 13:19 | PTCARENOTE ---
Patient received from laborer cook house AO x 3. NSR on telemetry. EKG completed VSS. Left chest wall Aquacel intact
[2024-08-22 13:44] LABS: Lyme Antibody Screen, EIA Negative (Negative)
--- NOTE | 2024-08-22 17:47 | CM ---
spoke to pt in room, she is prev indep, lives with her husb in a 2 story home wioth no steps to enter. she denies any dc plannin g needs or dme's. [plan is for dc to hoe when medically stable.
[2024-08-22 19:14] LABS: Hepatitis C Antibody Negative (Negative)
[2024-08-22] MEDS: ANCEF 5 IV (20:16)
[2024-08-22] MEDS: CARDIZEM CD 180 MG PO (20:16)
[2024-08-22] MEDS: ULTRAM 50 MG PO (20:56)
[2024-08-22] MEDS: AMBIEN 10 MG PO (23:10)
[2024-08-22] MEDS: CRESTOR 20 MG PO (23:10)
[2024-08-22] MEDS: MORPHINE SULFATE 1 MG IV (23:37)
--- NOTE | 2024-08-23 00:42 | PTCARENOTE ---
Assumed care of the pt @ 1900. Pt is AAOx3 c/o left shoulder pain. Harvey Terry notified and ordered pain medication see MAR. SR on the monitor VSS. left pacer site dressing c/d/i. Pt and were updated with POC. Call aguilar within reach.
[2024-08-23 04:12] VITALS: BMI 28.9
[2024-08-23 04:15] VITALS: BP 145/88
[2024-08-23] MEDS: ANCEF 5 IV (04:18)
[2024-08-23] MEDS: MORPHINE SULFATE 1 MG IV (04:29)
[2024-08-23 05:15] LABS: Hematocrit 30.4 % (37.0-47.0); Hemoglobin 10.4 g/dL (12.0-16.0); Mean Corp Hgb Conc. 34.2 g/dL (33.0-37.0); Mean Corpuscular Hgb 30.1 pg (27.0-31.0); Mean Corpuscular Volume 88.1 fL (81.0-99.0); Mean Platelet Volume 10.4 fL (7.4-10.4); Platelet Count 171 10^3/uL (130-400); Red Blood Cell Count 3.45 10^6/uL (4.20-5.40); Red Cell Dist. Width 12.6 % (11.5-14.5); White Blood Cell Count 7.7 10^3/uL (4.8-10.8)
[2024-08-23 05:25] LABS: Blood Urea Nitrogen 12 mg/dl (7-17); Calcium 8.9 mg/dl (8.4-10.2); Carbon Dioxide 21 mmol/L (22-30); Chloride 98 mmol/L (98-107); Estimated Creatinine Clearance 87 ml/min; Glucose 101 mg/dl (70-99); Potassium 4.1 mmol/L (3.5-5.1); Sodium 128 mmol/L (135-145); eGFR > 60.00
[2024-08-23] MEDS: LYRICA 75 MG PO (07:53)
[2024-08-23] MEDS: VITAMIN D3 (cholecalciferol) 125 MCG PO (07:53)
[2024-08-23] MEDS: THERAGRAN 1 TABLET PO (07:53)
[2024-08-23] MEDS: ZESTRIL 40 MG PO (07:54)
[2024-08-23] MEDS: PROTONIX 40 MG PO (07:54)
[2024-08-23] MEDS: CARDIZEM CD 180 MG PO (07:54)
[2024-08-23] MEDS: MIRALAX 17 GRAMS PO (07:54)
[2024-08-23 08:06] VITALS: BP 143/82
[2024-08-23] MEDS: ELIQUIS 5 MG PO (08:17)
--- NOTE | 2024-08-23 10:47 | PTCARENOTE ---
Discharge teaching completed. Patient verbalized understanding. IV and telemetry removed. Patient escorted to main lobby in a wheelchair.
--- NOTE | 2024-08-23 10:53 | W.PN.CARDCBS ---
Addendum entered and electronically signed by Debbie Fuentes MD 08/23/24 12:13:
Patient is seen and evaluated personally. I agree with the note, documentation, exam and plan of care as noted below.
74 yrs old woman with s/p TAVR and intermittent complete heart block with Mobitz II s/p dual chamber PPM 08/22/24. PPM site is normal. Normal functioning PPM.
OK to discharge home today
F/u with device clinic and incision check.
Original Note:
Today's Communication / Plan
-
Resume eliquis, diltiazem, metoprolol
incision check next week
home today
Impression / Plan
-
PCP: Samanta Pineda MD
CDY: Tristin Griffith MD
IMPRESSION: 74-year-old female with a past medical history of hypertension, paroxysmal atrial fibrillation on Eliquis, AAS status post TAVR 08/15/2024 presents with complete heart block.
Complete heart block:
s/p dc PPM implant, 08/22/24
post CXR with stable lead position, no pneumothorax
tele- NSR w/intermittent V/AV pacing
site stable, no ht/bleeding
resume diltiazem, metoprolol
activity limitations reviewed w/pt,
incision check next weed at [facility]
home today
PAF- both dilt/toprol resumed today
[id number]
resume eliquis today
HTN- modestly elevated BP but stable
meds resumed today
continue lisinopril
Hyponatremia
appears subacute but slightly worse, monitor. If progresses will c/s medicine
she appears euvolemic.
h/o breast ca- stable
Peripheral neuropathy- continue lyrica
Progress Note - Bulb Grader
Subjective
Date of Service: August 23, 2024
Denies cp/palps/dyspnea
mild incisional pain relieved w/tylenol
oob ambulating
Objective
Labs:
08/23/24 04:46
08/23/24 04:46
Labs
Hgb 10.4 g/dL (12.0-16.0) L 08/23/24 04:46
Hct 30.4 % (37.0-47.0) L 08/23/24 04:46
Plt Count 171 10^3/uL (130-400) 08/23/24 04:46
PT 15.9 Sec (11.4-14.6) H 08/20/24 17:23
INR 1.24 08/20/24 17:23
APTT 38.5 Sec (23.4-35.0) H 08/20/24 17:23
Sodium 128 mmol/L (135-145) L 08/23/24 04:46
Potassium 4.1 mmol/L (3.5-5.1) 08/23/24 04:46
BUN 12 mg/dl (7-17) 08/23/24 04:46
Creatinine 0.5 mg/dL (0.6-1.0) L 08/23/24 04:46
Glucose 101 mg/dl (70-99) H 08/23/24 04:46
Troponins
08/20/24
12:08
Troponin I 0.057 H*
Vital Signs and I&O:
Vital Signs
Temp Pulse Resp BP Pulse Ox
98.0 F 102 16 143/82 98
08/23/24 08:00 08/23/24 09:00 08/23/24 08:00 08/23/24 08:06 08/23/24 08:00
Vital Signs
Temp Pulse Resp BP Pulse Ox
98.0 F 102 16 143/82 98
08/23/24 08:00 08/23/24 09:00 08/23/24 08:00 08/23/24 08:06 08/23/24 08:00
Intake & Output
08/21/24 08/22/24 08/23/24 08/24/24
06:59 06:59 06:59 06:59
Intake Total 720 / 720
Output Total 1874 / 1874 875 / 875
Balance -1875 / -1875 -155 / -155
Physical Exam
Physical Exam
AAOx3, MAEE 5/5
RRR S1S2 no murmurs
CTA bilat, non labored
Left ACW w/aquacel dressing CDI, no ht/bleeding
soft abd, + bs
bilat extremities w/palpable distal pulses, no edema
--- NOTE | 2024-08-23 11:35 | W.DS.TRANS ---
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
-
Discharge Instructions:
Sleep Apnea Risk Intermediate
Discharge Diagnosis/Procedures Heart block, s/p pacemaker implant
Diet Low Cholesterol
Driving Restrictions No driving for 1 week
Bathing Restrictions OK to Shower
Instructions:
Stand-Alone Forms: DC Inst - Implanted Device
Changes to Home Medications: No
Discharge Medications:
DC Medications w/original date entered in [employer]
cetirizine 10 mg tablet (Zyrtec) 10 mg PO DAILY ALLERGIES 07/08/24
docusate sodium 100 mg capsule (Stool Softener) 100 mg PO BID 07/08/24
zolpidem 12.5 mg tablet,extended release,multiphase 12.5 mg PO HS SLEEP 07/08/24
apixaban 5 mg tablet (Eliquis) 5 mg PO BID Blood clot prevention/tx 30 days #60 tabs 08/16/24
diltiazem HCl 180 mg capsule,extended release 24 hr 180 mg PO BID Blood pressure #0 caps 08/16/24
lisinopril 40 mg tablet 40 mg PO BID Blood pressure #0 tabs 08/16/24
acetaminophen 500 mg tablet 1,000 mg PO Q6HPRN PRN mild pain/headache 08/20/24
ormmhgtsds-vvhmofnmgepqo-fwhikwnl 50 mg-325 mg-40 mg tablet 0.5 tab PO BIDPRN PRN migraine 08/20/24
cholecalciferol (vitamin D3) 125 mcg (5,000 unit) tablet (Vitamin D3) 125 mcg PO DAILY 08/20/24
omeprazole 20 mg capsule,delayed release 20 mg PO BID 08/20/24
polyethylene glycol 3350 17 gram oral powder packet (Miralax) 17 g PO DAILY PRN constipation 08/20/24
pregabalin 75 mg capsule 75 mg PO BID 08/20/24
rosuvastatin 20 mg tablet 20 mg PO DAILY High cholesterol 08/20/24
sennosides 8.6 mg tablet (senna) 8.6 mg PO BIDPRN PRN constipation 08/20/24
therapeutic multivitamin 1 tab PO DAILY 08/20/24
metoprolol succinate 25 mg tablet,extended release 24 hr 25 mg PO DAILY 08/23/24
Home Medication Changes
Pending Results: No
== END 2024-08-23 10:24 | disposition home or self-care (01) | DRG 243 ==
LOC: IVU 16:07
PROVIDERS: Clinical Nurse Specialist Acute Care; Emergency Medicine; Internal Medicine Cardiovascular Disease; Nurse Practitioner; ADMITTING PHYSICIAN Internal Medicine Cardiovascular Disease; EMERGENCY PHYSICIAN Emergency Medicine; FAMILY PHYSICIAN Internal Medicine
PROC: 0JH606Z Insertion of Pacemaker, Dual Chamber into Chest Subcutaneous Tissue and Fascia, Open Approach (ICD-10-PCS; 2024-08-20)
PROC: 02H63JZ Insertion of Pacemaker Lead into Right Atrium, Percutaneous Approach (ICD-10-PCS; 2024-08-20)
PROC: 02HK3JZ Insertion of Pacemaker Lead into Right Ventricle, Percutaneous Approach (ICD-10-PCS; 2024-08-20)
DX: I44.2 Atrioventricular block, complete (principal); E87.1 Hypo-osmolality and hyponatremia; I48.0 Paroxysmal atrial fibrillation; I10 Essential (primary) hypertension; E78.5 Hyperlipidemia, unspecified; I35.0 Nonrheumatic aortic (valve) stenosis; I49.5 Sick sinus syndrome; G62.9 Polyneuropathy, unspecified; M35.3 Polymyalgia rheumatica; Z85.3 Personal history of malignant neoplasm of breast; Z79.01 Long term (current) use of anticoagulants; Z92.21 Personal history of antineoplastic chemotherapy; Z92.3 Personal history of irradiation; Z95.2 Presence of prosthetic heart valve; Z79.899 Other long term (current) drug therapy
CPT/HCPCS: 33208; 71045; 80048; 80053; 81003; 83735; 84100; 84443; 84484; 85025; 85027; 85610; 85730; 86618; 86803; 93005; 99291; C1785; C1892; C1898; Q9967

== ENCOUNTER → 2024-09-14 10:24 | Outpatient (REF) | payer MEDICARE, OTHER, SELFPAY | LOC: HWRCS 10:24 | PROVIDERS: ATTENDING PHYSICIAN Internal Medicine; FAMILY PHYSICIAN Internal Medicine | DX: I35.0 Nonrheumatic aortic (valve) stenosis (principal); I10 Essential (primary) hypertension; I48.0 Paroxysmal atrial fibrillation | CPT/HCPCS: 93306 ==

== ENCOUNTER 2024-10-03 10:40 | Outpatient (RCR) | payer MEDICARE, OTHER, SELFPAY | END 2024-10-03 23:59 | disposition home or self-care (01) | LOC: CRHB 10:40 | PROVIDERS: ATTENDING PHYSICIAN Internal Medicine; FAMILY PHYSICIAN Internal Medicine | DX: Z95.4 Presence of other heart-valve replacement (principal) | CPT/HCPCS: G0422; G0423 ==

== ENCOUNTER 2024-10-31 11:40 | Outpatient (RCR) | payer MEDICARE, OTHER, SELFPAY | END 2024-10-31 23:59 | disposition home or self-care (01) | LOC: CRHB 11:40 | PROVIDERS: ATTENDING PHYSICIAN Internal Medicine; FAMILY PHYSICIAN Internal Medicine | DX: Z95.4 Presence of other heart-valve replacement (principal) | CPT/HCPCS: G0422; G0423 ==

== ENCOUNTER 2024-11-16 11:10 | Outpatient (RCR) | payer MEDICARE, OTHER, SELFPAY | END 2024-11-16 23:59 | disposition home or self-care (01) | LOC: CRHB 11:10 | PROVIDERS: ATTENDING PHYSICIAN Internal Medicine; FAMILY PHYSICIAN Internal Medicine | DX: Z95.4 Presence of other heart-valve replacement (principal) | CPT/HCPCS: G0422; G0423 ==

== ENCOUNTER 2024-12-21 07:57 | Inpatient (IN) | payer MEDICARE, OTHER, SELFPAY ==
[2024-12-20 21:29] VITALS: BP 157/118
[2024-12-20 21:57] VITALS: BP 138/88
[2024-12-20 22:00] VITALS: BP 139/93
[2024-12-20 22:15] VITALS: BMI 28.3
[2024-12-20] MEDS: ZOFRAN 4 MG IV (23:05)
[2024-12-20] MEDS: MORPHINE SULFATE 4 MG IV (23:05)
[2024-12-20 23:08] LABS: % Basophils 0.5 % (0-2); % Eosinophils 0.8 % (0-6); % Immature Granulocytes 0.7 % (0-0.5); % Lymphocytes 6.3 % (20.5-51.1); % Monocytes 7.5 % (1.7-9.3); % Neutrophils 84.2 % (42.2-75.2); Absolute Basophils 0.1 10^3/uL (0-0.2); Absolute Eosinophils 0.1 10^3/uL (0-0.7); Absolute Immature Granulocytes 0.1 10^3/uL (0-0.05); Absolute Lymphocytes 0.7 10^3/uL (1.2-3.4); Absolute Monocytes 0.8 10^3/uL (0.1-0.6); Absolute Neutrophils 8.9 10^3/uL (1.4-6.5); Hematocrit 26.6 % (37.0-47.0); Hemoglobin 9.7 g/dL (12.0-16.0); Mean Corp Hgb Conc. 36.5 g/dL (33.0-37.0); Mean Corpuscular Hgb 29.4 pg (27.0-31.0); Mean Corpuscular Volume 80.6 fL (81.0-99.0); Mean Platelet Volume 10.1 fL (7.4-10.4); Nucleated Red Blood Cells % 0 %; Platelet Count 244 10^3/uL (130-400); Red Cell Dist. Width 13.5 % (11.5-14.5); White Blood Cell Count 10.6 10^3/uL (4.8-10.8)
[2024-12-20 23:10] VITALS: BP 133/70
[2024-12-21] VITALS (11 sets, daily range): BP systolic 115–144; BP diastolic 63–79; BMI 27.6
[2024-12-21 00:24] LABS: ALT (SGPT) 52 U/L (0-35); AST (SGOT) 56 U/L (14-36); Albumin 3.4 g/dl (3.5-5.0); Alkaline Phosphatase 119 U/L (38-126); Blood Urea Nitrogen 9 mg/dl (7-17); Calcium 8.6 mg/dl (8.4-10.2); Carbon Dioxide 22 mmol/L (22-30); Chloride 92 mmol/L (98-107); Estimated Creatinine Clearance 73 ml/min; Glucose 108 mg/dl (70-99); Potassium 4.4 mmol/L (3.5-5.1); Sodium 120 mmol/L (135-145); Total Bilirubin 0.6 mg/dl (0.2-1.3); Total Protein 6.6 g/dl (6.3-8.2); eGFR > 60.00
--- NOTE | 2024-12-21 00:44 | ED.GENMED ---
History of Present Illness
General
Chief Complaint: Abnormal Lab Value
Source: patient
Time Seen by Provider: 12/20/24 22:17
History of Present Illness
History of Present Illness:
74-year-old female sent in by PCP for abnormal lab value presents to the emergency department with fatigue. She has a past medical history significant for breast cancer. She saw her oncologist today to discuss her treatment. She had lab work in
preparation for today's oncology visit. Was sent in by the oncologist for treatment of 'abnormal labs '. Patient has been having fevers at home. She has been having some muscle pains.
Review of Systems
Review of Systems
Allergies reviewed?: Yes
All Other Systems: ROS reviewed and negative except as documented in HPI and ROS
Constitutional: Reports fever and fatigue
EENT: Reports no symptoms
Respiratory: Reports no symptoms
Cardiac: Reports no symptoms
ABD/GI: Reports no symptoms
: Reports no symptoms
Musculoskeletal: Reports muscle pain and muscle stiffness
Skin: Reports no symptoms
Neurological: Reports no symptoms
Endocrine: Reports no symptoms
Hematologic/Lymphatic: Reports no symptoms
Psychiatric: Reports no symptoms
Phy Exam
General Physical Exam
General Presentation: well appearing and no apparent distress
General Skin: warm and dry
General Habitus: normal
General Mental: alert
General Hydration: appears well hydrated
ENT Exam
ENT Exam: EOMI, pharynx normal, neck supple and normocephalic
Eye Exam
Eye Exam: PERRL, cornea clear and conjunctiva normal
Cardiovascular Exam
Cardiovascular Exam: regular rate/rhythm, no edema, no murmur and normal peripheral pulses
Pulmonary Exam
Pulmonary Exam: lungs clear, no respiratory distress, no rales, no crackles, no rhonchi, no stridor, no wheezing and no cough
Gastrointestinal Exam
Gastrointestinal Exam: normal bowel sounds, non tender, soft, no organomegaly, no pulsatile mass and non distended
Neurological Exam
Neurological Exam: alert, oriented x3, no motor deficits and speech normal
Musculoskeletal Exam
Musculoskeletal Exam: full ROM and no edema
Skin Exam
Skin Exam: normal color, warm/dry, no rash and no petechia
Psychiatric Exam
Psychiatric Exam: normal mood/affect
Course
Orders/Labs/Results
Orders:
Orders
12/20/24 22:50
Morphine Sulfate 4 mg IV NOW STA
Ondansetron Injectable [Zofran] 4 mg IV NOW STA
12/20/24 23:02
Complete Blood Count/With Diff Urgent
12/20/24 23:43
Comprehensive Metabolic Panel Urgent
Comment: REDRAW
12/21/24
CT Chest PE Study Urgent
Reason For Exam: right cp, dyspnea, breast ca hx
CT Head W/o Iv Contrast Urgent
Reason For Exam: HEADACHE
12/21/24 00:40
3% Sodium Chloride 250 ml [Sodium Chloride 3%] 250 ml IV ONCE
12/21/24 00:41
HYDROmorphone [Dilaudid] 1 mg IV NOW STA
12/21/24 01:00
Flush (0.9% Sodium Chloride) [Flush (Nss)] See Dose Instructions IV PER PROTOCOL
12/21/24 01:45
CXR2 [CR Chest - 2 Views ] Routine
Comment: PA/LAT CXR
Reason For Exam: HYPONATREMIA
12/21/24 02:17
Diazepam [Valium] 5 mg .ROUTE .STK-MED ONE
12/21/24 04:32
Admit Patient As Directed
Co-Sign Provider:
Level of Care: Inpatient admission
Assign to:: Telemetry
Physician / Group: hospitalist
Diagnosis: Hyponatremia
Patient Condition: Fair
Reason for Telemetry: Other
Other Reason for Telemetry: hyponatremia
Date to Stop Telemetry: 12/23/24
Time to Stop Telemetry: 11:00
12/21/24 04:34
Activity As Directed
Activity Level: Ambulate
Heat Application As Directed
Apply heat therapy device to (location):: neck
Device Frequency setting:: 20 minute cycles
Device temperature setting:: Moderate: 100 F (38 C)
Vital Signs As Directed
Frequency: Per unit guidelines
PRN Pain Medication Management As Directed
May give lesser potent ordered pain med per pt: Yes
preference::
Protocol:: Medication orders for pain may be administered in a
manner that supports deferring to patient preference
when the pt is:
- Requesting an ordered lesser potent pain medication.
Least to most potent pain medications are defined
as: acetaminophen < NSAID < tramadol < opioids
(morphine, oxycodone, hydromorphone).
- Requesting a lesser dose of the same medication IF
ORDERED.
- Requesting a less intrusive route of administration
if both routes are prescribed by the provider (PO <
IV).
DX Deep Vein Thrombosis Video Routine
12/21/24 04:49
Code Status As Directed
Resuscitation Status: Full Code
12/21/24 04:58
Consult Notification Routine
Specialty to Notify: Nephrology
Date consulting provider notified: 12/21/24
Time consulting provider notified: 07:20
Notified:: Provider
Comment: tt
12/21/24 05:07
Ot Screening Request from [facility] Routine
Pt Screening Request from [place] Routine
12/21/24 05:14
Zolpidem Tartrate [Ambien] 5 mg PO HSPRN PRN
12/21/24 05:15
Osmolality, Random Urine Urgent
Date Specimen was Collected: 12/21/24
Time Specimen was Collected: 04:41
Urinalysis Urgent
Date Specimen was Collected: 12/21/24
Time Specimen was Collected: 04:41
Urine Microscopic Urgent
Date Specimen was Collected: 12/21/24
Time Specimen was Collected: 04:41
Urine Sodium Urgent
Date Specimen was Collected: 12/21/24
Time Specimen was Collected: 04:41
Acetaminophen [Tylenol] 650 mg PO Q4HPRN PRN
12/21/24 05:16
Diazepam [Valium] 5 mg PO Q6HPRN PRN
HYDROmorphone [Dilaudid] 0.5 mg IV Q4HPRN PRN Breakthrough PAIN Breakthrough PAIN
12/21/24 05:17
Ondansetron Injectable [Zofran] 4 mg IV Q6HPRN PRN
12/21/24 05:36
Diltiazem Extended Release [Cardizem Cd] 180 mg .ROUTE .STK-MED ONE
Metoprolol Xl [Toprol Xl] 25 mg .ROUTE .STK-MED ONE
12/21/24 05:45
BMP [Basic Metabolic Panel] Q6H
Complete Blood Count/With Diff IN AM
TSH Reflex To Free T4 IN AM
12/21/24 Breakfast
Regular
At Your Request: Limited Participation
Fluid Restriction: 1200 mL/day (40 oz)
Metoprolol Xl [Toprol Xl] 25 mg PO DAILY
PT Consult [Pt Eval And Treat] IN AM
Treatment: cervical spasm
Activity Level: Ambulate
12/21/24 07:00
NEPHROLOGY CONSULT Routine
Consulting Provider: Renetta Quintanilla
Was physician already notified: No
Reason for consult: hyponatremia
12/21/24 08:00
Apixaban [Eliquis] 5 mg PO BID
Diltiazem Extended Release [Cardizem Cd] 180 mg PO BID
Ojouucxac-Euf-Iplv [Femara] 2.5 mg PO DAILY
Lisinopril [Zestril] 40 mg PO BID
Pantoprazole [Protonix] 20 mg PO BID
Pregabalin [Lyrica] 75 mg PO BID
12/21/24 09:30
3% Sodium Chloride 250 ml [Sodium Chloride 3%] 250 ml IV ONCE
12/21/24 10:55
BMP [Basic Metabolic Panel] Q6H
12/21/24 18:13
BMP [Basic Metabolic Panel] Q6H
12/21/24 22:00
Rosuvastatin Calcium [Crestor] 20 mg PO HS
12/21/24 23:37
BMP [Basic Metabolic Panel] Q6H
12/22/24 08:00
Metoprolol Xl [Toprol Xl] 25 mg PO DAILY
12/23/24 11:00
DC Protocol for Telemetry ONCE
Abnormal Lab Results
12/20/24 12/20/24 12/21/24
23:02 23:43 05:15
WBC
RBC 3.30 L 10^6/uL
(4.20-5.40)
Hgb 9.7 L g/dL
(12.0-16.0)
Hct 26.6 L %
(37.0-47.0)
MCV 80.6 L fL
(81.0-99.0)
Abs Immat Gran (auto) 0.1 H 10^3/uL
(0-0.05)
Absolute Neuts (auto) 8.9 H 10^3/uL
(1.4-6.5)
Absolute Lymphs (auto) 0.7 L 10^3/uL
(1.2-3.4)
Absolute Monos (auto) 0.8 H 10^3/uL
(0.1-0.6)
Immature Gran % 0.7 H %
(0-0.5)
Neutrophils % 84.2 H %
(42.2-75.2)
Lymphocytes % 6.3 L %
(20.5-51.1)
Sodium 120 L mmol/L
(135-145)
Chloride 92 L mmol/L
(98-107)
Carbon Dioxide
Glucose 108 H mg/dl
(70-99)
Calcium
AST 56 H U/L
(14-36)
ALT 52 H U/L
(0-35)
Albumin 3.4 L g/dl
(3.5-5.0)
Urine Ketones 2+ A
(Negative)
Urine Occult Blood 2+ A
(Negative)
Urine RBC 3-6 A /HPF
(0-2)
Urine Bacteria Few A
(Negative)
Urine Albumin 2+ A
(Neg - Trace)
12/21/24
05:45
WBC 11.9 H 10^3/uL
(4.8-10.8)
RBC 3.28 L 10^6/uL
(4.20-5.40)
Hgb 9.3 L g/dL
(12.0-16.0)
Hct 27.0 L %
(37.0-47.0)
MCV
Abs Immat Gran (auto) 0.1 H 10^3/uL
(0-0.05)
Absolute Neuts (auto) 10.2 H 10^3/uL
(1.4-6.5)
Absolute Lymphs (auto) 0.6 L 10^3/uL
(1.2-3.4)
Absolute Monos (auto) 1.0 H 10^3/uL
(0.1-0.6)
Immature Gran % 0.7 H %
(0-0.5)
Neutrophils % 85.1 H %
(42.2-75.2)
Lymphocytes % 5.0 L %
(20.5-51.1)
Sodium 119 L* mmol/L
(135-145)
Chloride 95 L mmol/L
(98-107)
Carbon Dioxide 16 L mmol/L
(22-30)
Glucose
Calcium 8.0 L mg/dl
(8.4-10.2)
AST
ALT
Albumin
Urine Ketones
Urine Occult Blood
Urine RBC
Urine Bacteria
Urine Albumin
12/21/24 05:45
12/21/24 05:45
Vital Signs
Initial and Last Documented VS:
Initial Vital Signs
Temp Pulse Resp BP Pulse Ox
97.9 F 105 18 157/118 100
12/20/24 21:29 12/20/24 21:29 12/20/24 21:29 12/20/24 21:29 12/20/24 21:29
Last Documented Vital Signs
Temp Pulse Resp BP Pulse Ox
98.3 F 100 16 111/62 95
12/22/24 23:09 12/22/24 23:09 12/22/24 23:09 12/22/24 23:09 12/22/24 23:09
*Critical Care Note
Total Time (30-74mins, 75-104mins- exclusive of procedures): 33 (Critical care statement: A total of 33 minutes of critical care time was provided for this patient. This time is separate from time utilized to perform the aforementioned documented
procedures. Aggregate critical care time includes only time during which I was engaged in work directl)
ED Attending Note
-
Portions of this chart may have been created with voice recognition software.� Occasional wrong word or��sound alike� substitutions may have occurred due to the inherent limitations of voice recognition software.
Discharge Plan
Departure
Patient Disposition: Admit
Date of Disposition: 12/21/24
Time of Disposition: 00:44
Admit to: IVU
Presentation/result/management discussed w/ accepting MD/DO: Hospitalist
Condition: Serious
Discharge Problem:
Hyponatremia, Essential (primary) hypertension, History of breast cancer
Interventions
Interventions:
*Risk Screen - Suicide Last Done: 12/20/24 21:30
*General Assessment Last Done: 12/20/24 21:31
*Neglect/Abuse Screening Last Done: 12/20/24 21:30
*ED COVID-19 Vaccine History Last Done: 12/21/24 04:59
*Nursing Disposition Last Done: 12/21/24 03:15
Discharge Date and Time
Discharge Date/Time: 12/21/24 03:15
[2024-12-21] MEDS: DILAUDID 1 MG IV (00:55)
[2024-12-21] MEDS: SODIUM CHLORIDE 3% IV (01:55)
[2024-12-21] MEDS: SODIUM CHLORIDE 3% 250 IV ×2 (01:55→10:19)
--- NOTE | 2024-12-21 03:15 | PTCARENOTE ---
Received patient from ED via stretcher. Patient stood and pivoted from stretcher to bed with assistance. Oriented patient to room and placed call aguilar within reach.
--- NOTE | 2024-12-21 04:28 | DOWNTIME ---
Addendum entered by Zeynep Betancourt RN 12/21/24 14:12:
Correction: Downtime was 12/21/2024 from 0100 to 12/21/2024 at 0415
Original Note:
There was a [employer] Client [employer] Downtime on 12/20/2024 from 0100 to 12/21/2024 at 0415. Downtime documentation of patient's care, including medication administrations, has been reconciled in the electronic record per guidelines. Refer to the
patient's paper chart under the miscellaneous tab to see printed paper medication records and downtime forms.
--- NOTE | 2024-12-21 04:36 | HPS.HSE ---
Family Physician
-
Family Physician: Samanta Pineda
Chief Complaint
-
Abnormal Labs, Fatigue
History of Present Illness
Patient is a 74y F with PMH significant for breast cancer s/p chemo / XRT, paroxysmal A-Fib and hypertension who presents to ED complaining of abnormal labs and fatigue. Patient states that she had follow-up scheduled with her Oncologist today.
She had labs done in preparation for this appointment. Her son (who is an ED physician) reviewed the labs and advised her to present to the ED for evaluation.
Patient states that she has had some L thigh / groin pain for the past several days. She did strenuous exercise on for the first time in a long time and the pain started thereafter.
This pain has actually improved; however, she now complains of severe R sided neck pain and stiffness that started Thursday. She believes the neck pain started as a result of 'moving funny' due to her thigh pain.
Patient also reports fever at home Thursday evening to 101.
No other focal complaints including sore throat, cough / SOB, N/V/D, GI or symptoms.
Patient has history of hyponatremia, but recent labs showed significant decrease from baseline.
Medical History
Past Medical History
Past Medical History: Reports Other
Additional Past Medical History:
Breast Cancer s/p Lumpectomy, Chemo, XRT (completed treatment)
Paroxysmal Atrial Fibrillation
Aortic Stenosis
Complete Heart Block s/p PPM
Hypertension
Fibromyalgia
Polymyalgia Rheumatica
Past Surgical History: Reports Other
Additional Past Surgical History:
TAVR
PPM Placement
Bilateral TKA
Left TSA
Cataracts
Melanoma Excision
Right Lumpectomy
Social History
Tobacco: Non-smoker
Alcohol: Occasional
Drug: None
Family History
Family History: Not pertinent
Allergies / Home Medications
Allergies reflects when Allergies were last updated in [facility].
Home Medications with original date entered in [facility]
Allergy/Medication List:
Allergies
Allergy/AdvReac Type Severity Reaction Status Date / Time
levofloxacin (From Levaquin) Allergy Hives Verified 12/20/24 21:31
'anesthesia meds' Allergy Nausea / Uncoded 12/20/24 21:31
Vomiting
Home Medications
zolpidem 12.5 mg tablet,extended release,multiphase 12.5 mg PO HS SLEEP 07/08/24
apixaban 5 mg tablet (Eliquis) 5 mg PO BID Blood clot prevention/tx 30 days #60 tabs 08/16/24
diltiazem HCl 180 mg capsule,extended release 24 hr 180 mg PO BID Blood pressure #0 caps 08/16/24
lisinopril 40 mg tablet 40 mg PO BID Blood pressure #0 tabs 08/16/24
omeprazole 20 mg capsule,delayed release 20 mg PO BID 08/20/24
pregabalin 75 mg capsule 75 mg PO BID 08/20/24
rosuvastatin 20 mg tablet 20 mg PO DAILY High cholesterol 08/20/24
metoprolol succinate 25 mg tablet,extended release 24 hr 25 mg PO DAILY 08/23/24
letrozole 2.5 mg tablet 2.5 mg PO DAILY 12/21/24
Review of Systems
-
History Source: Patient
A 12 point ROS was completed and negative except as noted: Yes
Constitutional: Reports Fever and Fatigue; Denies Chills
EENT: Denies Sore Throat
Respiratory: Denies Cough or Trouble Breathing
Cardiac: Denies Chest Pain, Diaphoresis or Palpitations
Abdomen/GI: Denies Abdominal Pain, Nausea, Vomiting or Diarrhea
: Denies Dysuria, Frequency or Flank Pain
Musculoskeletal: Reports Joint Pain (L hip / thigh. R neck pain / stiffness.); Denies Edema
Neurological: Reports Headache; Denies Dizzy
Psych: Denies Depression or Anxiety
Physical Exam
Vital Signs
Vital Signs
Temp Pulse Resp BP Pulse Ox
97.9 F 99 20 128/64 99
12/20/24 21:29 12/21/24 00:15 12/21/24 00:15 12/21/24 00:00 12/21/24 00:15
Physical Exam
General: Other (74y F in mild distress due to neck pain.)
HEENT: Moist mucous membranes and PERRLA
Respiratory: Clear; No Wheezes, Rales or Rhonchi
Cardiac: S1/S2, Regular Rhythm and Murmur (II/ ALESSIO)
GI: Soft, Non Tender, Non Distended and Normal Bowel Sounds
Musculoskeletal: No Clubbing, No Cyanosis and No Edema
Neuro: AO x 3
Laboratory Results
-
12/20/24 23:02
12/20/24 23:43
Laboratory Results
Total Bilirubin 0.6 mg/dl (0.2-1.3) 12/20/24 23:43
AST 56 U/L (14-36) H 12/20/24 23:43
ALT 52 U/L (0-35) H 12/20/24 23:43
Alkaline Phosphatase 119 U/L (38-126) 12/20/24 23:43
Impression/Plan
-
A/P: Patient is a 74y F with PMH significant for s/p TAVR and heart block s/p PPM who presents to ED for evaluation of abnormal labs and fatigue.
Acute on Chronic Hyponatremia
- Admit for further evaluation and treatment.
- Na = 120 compared to prior baseline in high 120s / low 130s.
- Patient reports increased H2O intake and decreased solute intake recently.
- No recent med changes.
- 3% saline started in the ED.
- Urine studies added to ED labs for further evaluation.
- Chest imaging was done and was unremarkable - formal report pending.
- CT head unremarkable - formal report pending.
- Fluid restriction.
- Pursue adequate pain control as acute pain syndrome likely driving ADH.
- Nephrology evaluation for additional recommendations.
Neck Pain
- History / exam seems most consistent muscular strain.
- Continue pain control efforts with pain regimen, heat application, muscle relaxants, etc.
- Follow for any new / worsening symptoms.
Anemia of Chronic Disease
- Hgb close to known baseline.
- No reported bleeding, etc.
- Follow for changes.
Paroxysmal A-Fib
Heart Block s/p PPM
- Stable. Continue current CV med regimen including Eliquis for stroke risk reduction.
- s/p PPM placement in August (shortly after TAVR).
Benign Hypertension
- Stable. Continue home regimen with holding parameters.
Fibromyalgia / Chronic Pain
- Pursue adequate pain control as noted above
- Continue Lyrica for chronic pain.
History of Breast Cancer
- Has completed therapy and now in surveillance on letrozole only.
- Follow-up with Oncology as an outpatient as planned.
DVT Prophylaxis: On Eliquis
Code Status: Full
[2024-12-21 05:32] LABS: Urine Albumin 2+ (Neg - Trace); Urine Bilirubin Negative (Negative); Urine Character Clear (Clear); Urine Color Yellow; Urine Glucose Negative (Negative); Urine Ketone 2+ (Negative); Urine Leukocyte Negative (Negative); Urine Nitrite Negative (Negative); Urine Occult Blood 2+ (Negative); Urine Urobilinogen Negative (Neg - 1+)
[2024-12-21] MEDS: TYLENOL 650 MG PO ×3 (05:38→22:57)
[2024-12-21] MEDS: CARDIZEM CD 180 MG PO ×2 (05:39→21:16)
[2024-12-21] MEDS: TOPROL XL 25 MG PO (05:40)
[2024-12-21] MEDS: DILAUDID 0.5 MG IV ×3 (05:41→22:43)
[2024-12-21 05:43] LABS: Osmolality Urine 443 mOsm/kg (300-900)
[2024-12-21 05:46] LABS: Urine Squamous Cell 16-20 /LPF (Few)
[2024-12-21 05:47] LABS: Urine Bacteria Few (Negative); Urine White Cell None Seen /HPF (0-5)
[2024-12-21 05:53] LABS: Urine Sodium 30 mmol/L (30-90)
[2024-12-21] MEDS: ZOFRAN 4 MG IV ×2 (05:53→19:37)
[2024-12-21] MEDS: TOPROL XL PO (05:53)
--- NOTE | 2024-12-21 06:20 | DOWNTIME ---
Addendum entered by Zeynep Betancourt RN 12/21/24 14:12:
Correction: Downtime was 12/21/2024 from 0100 to 12/21/2024 at 0415
Original Note:
There was a [employer] Downtime on 12/20/2024 from 0100 to 12/21/2024 at 0415. Downtime documentation of patient's care, including medication administrations, has been reconciled in the electronic record per guidelines. Refer to the
patient's paper chart under the miscellaneous tab to see printed paper medication records and downtime forms.
[2024-12-21 07:22] LABS: % Basophils 0.4 % (0-2); % Eosinophils 0.2 % (0-6); % Immature Granulocytes 0.7 % (0-0.5); % Monocytes 8.6 % (1.7-9.3); % Neutrophils 85.1 % (42.2-75.2); Absolute Basophils 0.1 10^3/uL (0-0.2); Absolute Immature Granulocytes 0.1 10^3/uL (0-0.05); Absolute Lymphocytes 0.6 10^3/uL (1.2-3.4); Absolute Neutrophils 10.2 10^3/uL (1.4-6.5); Hemoglobin 9.3 g/dL (12.0-16.0); Mean Corp Hgb Conc. 34.4 g/dL (33.0-37.0); Mean Corpuscular Hgb 28.4 pg (27.0-31.0); Mean Corpuscular Volume 82.3 fL (81.0-99.0); Mean Platelet Volume 10.4 fL (7.4-10.4); Nucleated Red Blood Cells % 0 %; Platelet Count 242 10^3/uL (130-400); Red Blood Cell Count 3.28 10^6/uL (4.20-5.40); Red Cell Dist. Width 13.6 % (11.5-14.5); White Blood Cell Count 11.9 10^3/uL (4.8-10.8)
[2024-12-21] MEDS: ELIQUIS 5 MG PO ×2 (08:04→21:15)
[2024-12-21] MEDS: LYRICA 75 MG PO ×2 (08:05→21:15)
[2024-12-21] MEDS: PROTONIX 20 MG PO ×2 (08:05→21:14)
[2024-12-21] MEDS: VALIUM 5 MG PO ×2 (08:05→18:27)
[2024-12-21] MEDS: ZESTRIL 40 MG PO ×2 (08:05→21:14)
[2024-12-21] MEDS: FEMARA 2.5 MG PO (08:05)
[2024-12-21 08:11] LABS: Blood Urea Nitrogen 8 mg/dl (7-17); Carbon Dioxide 16 mmol/L (22-30); Chloride 95 mmol/L (98-107); Estimated Creatinine Clearance 85 ml/min; Glucose 99 mg/dl (70-99); Potassium 4.6 mmol/L (3.5-5.1); Sodium 119 mmol/L (135-145); eGFR > 60.00
[2024-12-21 08:22] LABS: TSH Reflex To Free T4 0.59 uIU/ml (0.47-4.68)
--- NOTE | 2024-12-21 09:17 | W.CON.NEPH ---
Consultation
-
Date/Time Consultation Requested: 12/21/2024 7:30 AM
Date/Time Consultation Performed: 12/21/2024 915 AM
Requesting Provider: Dr. Sparks
Performing Provider: Dr. Jansen
Reason for Consultation: Hyponatremia
Medical History
-
Chief Complaint: Hyponatremia
History of Present Illness:
Patient is a 74y F with PMH significant for breast cancer s/p chemo / XRT, paroxysmal A-Fib (rate controlled with diltiazem and metoprolol and anticoagulated with Eliquis )and hypertension (on metoprolol lisinopril and diltiazem) who presents to
ED complaining of abnormal labs and fatigue. The patient does have a history of prior chronic hyponatremia is notable by his serum sodium level of 128 on 08/23/2024 per review of EMR records. The patient states that she had follow-up scheduled with
her Oncologist yesterday. She had labs done in preparation for this appointment. Her son (who is an ED physician) reviewed the labs and advised her to present to the ED for evaluation.
Patient states that she has had some L thigh / groin pain for the past several days. She did strenuous exercise on for the first time in a long time and the pain started thereafter.
This pain has actually improved; however, she now complains of severe R sided neck pain and stiffness that started Thursday. She believes the neck pain started as a result of 'moving funny' due to her thigh pain.
Patient also reports fever at home Thursday evening to 101.
No other focal complaints including sore throat, cough / SOB, N/V/D, GI or symptoms.
On presentation to the hospital her serum sodium was 120 and she was administered hypertonic saline overnight and nephrology was consulted for hyponatremia
Past Medical History
Breast Cancer s/p Lumpectomy, Chemo, XRT (completed treatment)
Paroxysmal Atrial Fibrillation
Aortic Stenosis
Complete Heart Block s/p PPM
Hypertension
Fibromyalgia
Polymyalgia Rheumatica
TAVR
PPM Placement
Bilateral TKA
Left TSA
Cataracts
Melanoma Excision
Right Lumpectomy
Chronic hyponatremia
Social History
Tobacco: Non-Smoker
Alcohol: Occasional
Family History
no ckd
Allergies / Home Medications
Allergy/AdvReac Type Severity Reaction Status Date / Time
levofloxacin (From Levaquin) Allergy Hives Verified 12/20/24 21:31
'anesthesia meds' Allergy Nausea / Uncoded 12/20/24 21:31
Vomiting
�Medication �Instructions �Recorded �Confirmed �Type
zolpidem 12.5 mg tablet,extended 12.5 mg PO HS SLEEP 07/08/24 12/21/24 History
release,multiphase
apixaban 5 mg tablet (Eliquis) 5 mg PO BID Blood clot 08/16/24 12/21/24 Rx
prevention/tx 30 days #60 tabs
diltiazem HCl 180 mg 180 mg PO BID Blood pressure #0 08/16/24 12/21/24 Rx
capsule,extended release 24 hr caps
lisinopril 40 mg tablet 40 mg PO BID Blood pressure #0 tabs 08/16/24 12/21/24 Rx
omeprazole 20 mg capsule,delayed 20 mg PO BID 08/20/24 12/21/24 History
release
pregabalin 75 mg capsule 75 mg PO BID 08/20/24 12/21/24 History
rosuvastatin 20 mg tablet 20 mg PO DAILY High cholesterol 08/20/24 12/21/24 History
metoprolol succinate 25 mg 25 mg PO DAILY 08/23/24 12/21/24 History
tablet,extended release 24 hr
letrozole 2.5 mg tablet 2.5 mg PO DAILY 12/21/24 12/21/24 History
Review of Systems
-
History Source: Patient
All other systems: Negative unless noted
Constitutional: Fever and Fatigue
Musculoskeletal: Muscle Pain (right sided neck pain)
Physical Exam
Vital Signs
Vital Signs
Temp Pulse Resp BP Pulse Ox
98.8 F 105 18 120/63 97
12/21/24 07:58 12/21/24 08:05 12/21/24 07:58 12/21/24 08:05 12/21/24 07:58
Lab Results
12/21/24 05:45
WBC 11.9 10^3/uL (4.8-10.8) H 12/21/24 05:45
RBC 3.28 10^6/uL (4.20-5.40) L 12/21/24 05:45
Hgb 9.3 g/dL (12.0-16.0) L 12/21/24 05:45
Hct 27.0 % (37.0-47.0) L 12/21/24 05:45
Plt Count 242 10^3/uL (130-400) 12/21/24 05:45
eGFR > 60.00 12/21/24 05:45
Albumin 3.4 g/dl (3.5-5.0) L 12/20/24 23:43
Physical Exam
General: AOx3, Nontoxic , NAD
HEENT: PERRL, EOMI, Anicteric, Conjunctivae Clear, Ear/Nose Intact, Hearing Normal, Oropharynx Clear/Moist, Dentition Intact, Facial Symmetry, Neck Supple, Neck: Trachea Midline, No JVD and No Thyromegaly, no Bruits
Respiratory: Clear to auscultation bilaterally with normal lung excursion
Cardiac: S1/S2 and Regular Rate/Rhythm
Breast: Deferred by me
Abdomen: Soft, Nontender, Nondistended, Normal Bowel Sounds and No Hepatosplenomegaly
Rectal: Deferred by Provider
Genito-urinary: No Costovertebral Tenderness
Extremities: No Clubbing, No Cyanosis and No Edema
Skin: No Rash or open lesions
Neuro: Nonfocal/Grossly Intact, CN II-XII (Intact) and Strength (Musculoskeletal exam 5 out of 5 both upper and lower extremities)
Hematologic/Lymphatic: No Cervical Lymphadenopathy, No Submandibular Lymphadenopathy and No Supraclavicular Lymphadenopathy
Psych: Mood/afflect pleasant, Insight/judgement good and Appropriate
Vascular: plus 2 pedal and radial pulses
Data Reviewed
-
Radiology: Report Reviewed by me
CT Scan: Report Reviewed by me (CAT scan of chest reviewed with IV contrast no evidence of PE, some noted right upper lobe scarring and bibasilar segmental atelectasis)
Labs: Labs Reviewed by me (BMP CBC, urine sodium urine osmolality)
Old Records: Reviewed (Reviewed previous records in the electronic medical record from 08/23/2024 sodium 128)
Assessment/Plan
-
Impression:
Symptomatic acute on chronic hyponatremia (120)
Neck and thigh pain
Hypertension
Paroxysmal
Anemia
History of breast cancer
Chronic pain and fibromyalgia
Plan:
Hyponatremia:
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
- Maintain fluid restriction
-Likely exacerbated by increased fluid ingestion and poor solute and pain
- Hypertonic saline had been provided last evening
- Recheck lytes this afternoon
-for CXR
-Discontinue isotonic saline as this will exacerbate hyponatremia and standing of SIADH
- Repeat electrolytes at 11 AM will be reviewed as patient is now going to have second bag of hypertonic saline
- If patient unresponsive to hypertonic I will then add IV Lasix
HTN:
- Hemodynamically stable on current antihypertensive
[2024-12-21] MEDS: LIDOCAINE 4% PATCH 2 PATCH TOPICAL (11:33)
[2024-12-21 12:04] LABS: Blood Urea Nitrogen 9 mg/dl (7-17); Calcium 8.2 mg/dl (8.4-10.2); Carbon Dioxide 17 mmol/L (22-30); Chloride 97 mmol/L (98-107); Estimated Creatinine Clearance 85 ml/min; Glucose 108 mg/dl (70-99); Potassium 4.5 mmol/L (3.5-5.1); Sodium 123 mmol/L (135-145); eGFR > 60.00
--- NOTE | 2024-12-21 12:28 | CM ---
Alert awake oriented pt who lives with Vickey in a 2 story home with 2 steps to enter and 10 to bed bathroom.She is independent in driving and all ADLs.offered VN she requested [facility].
No DME
[facility] VN . No SNF History
PHARMACY [facility]
PCP DR Pineda
PLAN Home with [facility]
[2024-12-21] MEDS: FLEXERIL 5 MG PO ×2 (12:57→21:24)
--- NOTE | 2024-12-21 13:19 | W.PN.HOSP.TC ---
Today's Communication/Plan
-
Assessment / Plan
Assessment / Plan
General: No Apparent Distress, Comfortable and Conversant
HEENT: NormoCephalic, Moist mucous membranes, Atraumatic
Respiratory: Clear and Non Labored Respirations
Cardiac: S1/S2 and Regular Rhythm; No Rub or Gallop
GI: Soft, Non Tender, Non Distended and Normal Bowel Sounds
Musculoskeletal: No Edema, no deformity, right posterior cervical muscular hypertonicity
Skin: Warm and dry
: NO Ashton
Neuro: Awake, Alert, Nonfocal/grossly intact
Psych: Calm and Intact Judgment/Insight
Ms. Cooley is a 74-year-old female with a medical history of breast cancer (status post chemoradiation, now on letrozole), paroxysmal A-fib (on Eliquis), complete heart block (status post PPM 08/22/2024), aortic stenosis (status post TAVR
08/15/2024), hypertension, fibromyalgia, and polymyalgia rheumatica who was sent to the ED after outpatient labs revealed significant hyponatremia of 120. Her son (who is an ED physician at [facility]) reviewed the lab results and advised her to
go to the ED. She has had no neurologic symptoms. However she has been experiencing left thigh and right sided neck pain for several days after strenuous exercise which she had not done in a long time. CT imaging of her head and chest showed no
acute abnormalities. Labs were significant for serum sodium of 119 and a leukocytosis around 11,000. She was initially afebrile and normotensive although later developed a mild fever of 100.9 �F. She was given 0 cc of hypertonic saline and
admitted for further evaluation and management of hyponatremia.
Hyponatremia:
- Severe with initial serum sodium of 119, no neurologic symptoms
- Given 250 cc of hypertonic saline initially, now being given another 250 cc of hypertonic saline
- Serum sodium improved to 123, will continue frequent monitoring of serum sodium and mental status
- Appreciate nephrology guidance
Neck pain:
- Suspect due to muscular hypertonicity following exercise
- Continue multimodal pain control
- Will continue to monitor closely considering very low fever and mild leukocytosis, will check blood cultures for completeness considering she has had fairly recent pacemaker and TAVR placement
A-fib:
- Currently rate controlled
- Continue home diltiazem 180 mg p.o. twice daily
- Anticoagulation with Eliquis 5 mg p.o. twice daily
DVT prophylaxis: Eliquis
CODE STATUS: Full code
Total time spent on today's encounter was 45 minutes
Anticipated Discharge: 24 - 48 hours
Subjective/Interval History
-
Date of Service: December 21, 2024
Patient was seen and examined at bedside this morning. Continues to complain of left thigh pain and right posterior neck pain. Both of which appear to be due to muscle cramping. She is being given another 250 cc of hypertonic saline for her
hyponatremia. Her mental status appears at baseline, AAO x 3.
Objective Data
-
Labs:
Laboratory Results
12/21/24 12/21/24 12/21/24
05:45 10:55 17:00
WBC 11.9 H
Hgb 9.3 L
Hct 27.0 L
Plt Count 242
Sodium 119 L* 123 L Pending
Potassium 4.6 4.5 Pending
Chloride 95 L 97 L Pending
Carbon Dioxide 16 L 17 L Pending
BUN 8 9 Pending
Creatinine 0.6 0.6 Pending
Glucose 99 108 H Pending
Calcium 8.0 L 8.2 L Pending
12/21/24
23:00
WBC
Hgb
Hct
Plt Count
Sodium Pending
Potassium Pending
Chloride Pending
Carbon Dioxide Pending
BUN Pending
Creatinine Pending
Glucose Pending
Calcium Pending
Vital Signs:
Vital Signs
Temp Pulse Resp BP Pulse Ox
98.4 F 96 18 128/65 98
12/21/24 11:37 12/21/24 11:37 12/21/24 11:37 12/21/24 11:37 12/21/24 11:37
I&O
12/20/24 12/21/24 12/22/24
06:59 06:59 06:59
Output Total 100 / 100
Balance -100 / -100
Review of Systems
-
History Source: Patient
All other systems: Reviewed and negative
Musculoskeletal: Reports Joint Pain (Right neck and left leg pain)
Physical Exam
-
General: No Apparent Distress
[2024-12-21] MEDS: ROXICODONE 5 MG PO ×2 (15:15→19:37)
[2024-12-21 18:35] LABS: Blood Urea Nitrogen 10 mg/dl (7-17); Calcium 8.2 mg/dl (8.4-10.2); Carbon Dioxide 22 mmol/L (22-30); Chloride 99 mmol/L (98-107); Estimated Creatinine Clearance 73 ml/min; Glucose 132 mg/dl (70-99); Potassium 4.6 mmol/L (3.5-5.1); Sodium 124 mmol/L (135-145); eGFR > 60.00
[2024-12-21] MEDS: CRESTOR 20 MG PO (21:15)
[2024-12-22] VITALS (7 sets, daily range): BP systolic 83–111; BP diastolic 46–62
[2024-12-22 00:12] LABS: Blood Urea Nitrogen 11 mg/dl (7-17); Calcium 8.3 mg/dl (8.4-10.2); Carbon Dioxide 21 mmol/L (22-30); Chloride 98 mmol/L (98-107); Estimated Creatinine Clearance 73 ml/min; Glucose 136 mg/dl (70-99); Potassium 4.4 mmol/L (3.5-5.1); Sodium 124 mmol/L (135-145); eGFR > 60.00
[2024-12-22] MEDS: LASIX 20 MG IV (01:46)
--- NOTE | 2024-12-22 01:49 | W.PN.UPDATE ---
Update Note
Progress Note Update
Na 124, 20mg IV Lasix x1 per business services coordinator order. BMP q6h.
--- NOTE | 2024-12-22 01:50 | PTCARENOTE ---
Patient's 2330 sodium level 124. Patient AAOx3 but impulsive, forgetful and confused at times. Temperature of 101.2, down to 99.4 after PRN tylenol. Patient complaining of right neck/shoulder pain and new 6/10 RUQ abdominal pain. Patient states that
she thinks the abdominal pain is due to the tylenol she took and not having enough water. Educated patient on the importance of fluid restriction. [employer] BI DEVELOPER and nephrology made aware, order for 1x dose of 20mg IV lasix and Q6 BMP. Plan of care ongoing.
[2024-12-22] MEDS: ROXICODONE 5 MG PO ×3 (03:29→20:02)
[2024-12-22] MEDS: VALIUM 5 MG PO ×3 (06:32→23:31)
[2024-12-22 08:16] LABS: Hemoglobin 9.5 g/dL (12.0-16.0); Mean Corp Hgb Conc. 33.9 g/dL (33.0-37.0); Mean Corpuscular Volume 85.4 fL (81.0-99.0); Mean Platelet Volume 10.6 fL (7.4-10.4); Platelet Count 243 10^3/uL (130-400); Red Blood Cell Count 3.28 10^6/uL (4.20-5.40); White Blood Cell Count 11.7 10^3/uL (4.8-10.8)
[2024-12-22] MEDS: FLEXERIL 5 MG PO ×2 (08:57→20:02)
[2024-12-22] MEDS: CARDIZEM CD 180 MG PO ×2 (08:57→20:00)
[2024-12-22] MEDS: PROTONIX 20 MG PO ×2 (08:57→20:02)
[2024-12-22] MEDS: TOPROL XL 25 MG PO (08:57)
[2024-12-22] MEDS: LYRICA 75 MG PO ×2 (08:58→20:02)
[2024-12-22] MEDS: ELIQUIS 5 MG PO ×2 (08:58→20:02)
[2024-12-22] MEDS: FEMARA 2.5 MG PO (08:58)
[2024-12-22 08:59] LABS: Blood Urea Nitrogen 10 mg/dl (7-17); Calcium 8.6 mg/dl (8.4-10.2); Carbon Dioxide 22 mmol/L (22-30); Chloride 98 mmol/L (98-107); Estimated Creatinine Clearance 85 ml/min; Glucose 101 mg/dl (70-99); Sodium 127 mmol/L (135-145); eGFR > 60.00
[2024-12-22] MEDS: LIDOCAINE 4% PATCH 2 PATCH TOPICAL (09:03)
[2024-12-22] MEDS: ZESTRIL 40 MG PO ×2 (09:10→20:02)
[2024-12-22] MEDS: DILAUDID 0.5 MG IV ×3 (09:11→20:03)
[2024-12-22] MEDS: TYLENOL 650 MG PO (09:11)
--- NOTE | 2024-12-22 11:50 | W.PN.NEPH.PH ---
Today's Communication / Plan
-
Maintain fluid restrict
Follow-up electrolytes later this afternoon
Sodium stable at 127 after IV Lasix provided last evening
Assessment/Plan
-
Impression:
Symptomatic acute on chronic hyponatremia (120)
Neck and thigh pain
Hypertension
Paroxysmal
Anemia
History of breast cancer
Chronic pain and fibromyalgia
Gram-positive cocci in chains
Plan:
Hyponatremia:
-Sodium now up to 127
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
- Maintain fluid restriction, received 20 mg of IV Lasix earlier this morning after total of 500 cc of hypertonic saline
-Likely exacerbated by increased fluid ingestion and poor solute and pain, chest x-ray without findings
-If serum sodium level drops again I will use low-dose Samsca
-Recheck lytes this afternoon
HTN:
- Hemodynamically stable on current antihypertensive
Gram-positive cocci in chains bacteremia:
-? source
- Now on ampicillin
-
-
Date of Service: December 22, 2024
CC / HPI / ROS
-
Chief Complaint:
Hyponatremia
History of Present Illness:
Serum sodium up to 1 5:27 100 cc of hypertonic saline and 20 mg IV Lasix given earlier this am
Hemodynamically stable
now febrile with GPC chains
Review of Systems:
non oliguric
fevers
Labs
-
Labs:
WBC 11.7 10^3/uL (4.8-10.8) H 12/22/24 06:54
RBC 3.28 10^6/uL (4.20-5.40) L 12/22/24 06:54
Hgb 9.5 g/dL (12.0-16.0) L 12/22/24 06:54
Hct 28.0 % (37.0-47.0) L 12/22/24 06:54
Plt Count 243 10^3/uL (130-400) 12/22/24 06:54
eGFR > 60.00 12/22/24 06:54
Albumin 3.4 g/dl (3.5-5.0) L 12/20/24 23:43
Physical Exam
-
Vital Signs:
Vital Signs
Temp Pulse Resp BP Pulse Ox
102.1 F H 117 18 140/76 100
12/22/24 09:15 12/22/24 09:10 12/22/24 07:16 12/22/24 09:10 12/22/24 11:27
Cardiovascular:: Regular rate and rhythm
Respiratory:: Bilateral: CTA
Lung Excursion:: Normal
Abdomen:: Nontender and Soft
Bowel Sounds:: Normal
Extremity Edema:: None: Bilateral:
Ashton Catheter: No
[2024-12-22] MEDS: AMPICILLIN 108 MG IV ×4 (12:05→23:31)
[2024-12-22 12:23] LABS: Blood Urea Nitrogen 12 mg/dl (7-17); Calcium 8.5 mg/dl (8.4-10.2); Carbon Dioxide 23 mmol/L (22-30); Chloride 98 mmol/L (98-107); Estimated Creatinine Clearance 73 ml/min; Glucose 124 mg/dl (70-99); Potassium 4.5 mmol/L (3.5-5.1); Sodium 126 mmol/L (135-145); eGFR > 60.00
--- NOTE | 2024-12-22 14:14 | CON.ID ---
Consultation
-
Date/Time Consultation Requested: 12/22/2024 0801
Date/Time Consultation Performed: 12/22/2024 1347
Requesting Provider: Dr. Sparks
Performing Provider: Dr. Whitney
Reason for Consultation: Bacteremia
Chief Complaint / Past History
History of Present Illness
Kareen Cooley is a 74-year-old female with a significant past medical history of breast cancer, coagulopathy and recent TAVR, being evaluated at the request of Dr. Sparks regarding bacteremia. History is obtained from chart review,
along with patient interview.
The patient reports that approximate 3 weeks ago she recalls exercising and she developed some left thigh discomfort which ultimately resolved, but approximately 2 weeks ago she recalls developing some neck discomfort. She was to follow-up with
oncology and had preoffice visit testing which was reported as abnormal, so she was advised to come to the hospital by her son who is an ER physician. She is not sure what was abnormal in the labs, but recalls that her sodium was low. She denies
fevers prior to arrival, but has developed spiking temperatures here. At admission she was not noted to have a white count, but she did have a left shift. Admission blood cultures are now positive for Enterococcus faecalis, and Infectious Diseases
is asked to comment on further antimicrobial therapy.
She notes that she had a TAVR performed in mid August, with a permanent pacemaker placed 1 week later. She denies any recent dental work. She denies any history of abdominal pain or swelling. She denies any history of nausea, vomiting or
diarrhea.
Past History
Additional Past Medical History:
Hx breast CA (chemo/XRT/lumpectomy)
P A-fib
Aortic stenosis
HTN
Fibromyalgia
Polymyalgia rheumatica
Additional Past Surgical History:
TAVR (08/14/2024)
PPM (08/23/2024)
B/L TKA
(L) TSA
Cataract surgery
Melanoma removal
Right lumpectomy
Allergy History:
levofloxacin (From Levaquin) Allergy (Verified 12/20/24 21:31)
Hives
'anesthesia meds' Allergy (Uncoded 12/20/24 21:31)
Nausea / Vomiting
Medications Reviewed: Yes
Current Antibiotics:
Ampicillin
Social History
Tobacco: Non-Smoker
Alcohol: Occasional
Drug: None
Employment: Retired
Review of Systems
Vital Signs
Temp Pulse Resp BP Pulse Ox
99.2 F 112 18 105/55 97
12/22/24 11:54 12/22/24 11:54 12/22/24 11:54 12/22/24 11:54 12/22/24 11:54
Physical Exam
Physical Exam
Constitutional: No Acute Distress, Comfortable and Non-toxic
Head: Normocephalic
Eyes: Pupils Equal, Pupils Round, No Conjunctival Hemorrhage and Sclera Anicteric
Oral: No Thrush and No Ulcers
Cardiovascular: Regular Rate and Murmur; Negative S1/S2 or S3/S4
Pulmonary: Clear; Negative Wheezes, Rales or Rhonchi
Gastrointestinal: Soft, Non Tender, Non Distended, Normal Bowel Sounds, No Rebound and No Guarding
Extremities: Negative Edema, Cyanosis, Splinter Hemorrhage or Venous Insufficiency
Skin: Warm and Dry; Negative Rash or Jaundice
Neurological: Awake and Alert
Psychological: Calm
Lab / Diagnostic Study Results
12/22/24 06:54
Abs Immat Gran (auto) 0.1 10^3/uL (0-0.05) H 12/21/24 05:45
Absolute Neuts (auto) 10.2 10^3/uL (1.4-6.5) H 12/21/24 05:45
Absolute Lymphs (auto) 0.6 10^3/uL (1.2-3.4) L 12/21/24 05:45
Absolute Monos (auto) 1.0 10^3/uL (0.1-0.6) H 12/21/24 05:45
Absolute Basos (auto) 0.1 10^3/uL (0-0.2) 12/21/24 05:45
Immature Gran % 0.7 % (0-0.5) H 12/21/24 05:45
Neutrophils % 85.1 % (42.2-75.2) H 12/21/24 05:45
Lymphocytes % 5.0 % (20.5-51.1) L 12/21/24 05:45
Monocytes % 8.6 % (1.7-9.3) 12/21/24 05:45
Eosinophils % 0.2 % (0-6) 12/21/24 05:45
Basophils % 0.4 % (0-2) 12/21/24 05:45
Urine WBC None seen /HPF (0-5) 12/21/24 05:15
Ur Squamous Epith Cells 16-20 /LPF (Few) 12/21/24 05:15
Microbiology Results
Micro:
12/22/24 09:27 Blood Culture - Pending
Blood/Venous
12/22/24 09:54 Blood Culture - Pending
Blood/Venous
12/21/24 13:56 Blood Culture - Preliminary
Blood/Venous Enterococcus faecalis
Gram Stain - Final
12/21/24 14:35 Blood Culture - Preliminary
Blood/Venous Positive culture in progress
Gram Stain - Final
Imaging:
12/21/2024 CXR (2 view): No significant focal parenchymal opacification or vascular congestion.
12/21/24 CT head without contrast: Unenhanced CT imaging of the head reveals no findings to suggest recent infarction, intracranial hemorrhage, extra-axial fluid collection, mass effect or midline shift. The ventricles, cisterns and sulci are within
the limits of normal. The brainstem and posterior fossa structures demonstrate no significant focal abnormality.
12/21/2024 CT chest (PE study): No evidence of central pulmonary embolism. Some right upper lobe scarring and bibasilar subsegmental atelectasis.
Assessment / Plan
Enterococcal bacteremia
Leukocytosis
Fevers
Hyponatremia
Hx breast CA (chemo/XRT/lumpectomy)
P A-fib
Aortic stenosis
HTN
Fibromyalgia
Polymyalgia rheumatica
Recommendations:
Patient has been started on ampicillin earlier today after reviewing cultures.
Will add empiric ceftriaxone.
Given recent TAVR (August) concern at this point in time would be for prosthetic valve endocarditis.
Check echocardiogram.
Repeat blood cultures (prior to initiation of antibiotics) have been obtained; will follow.
Check ESR and CRP, although if abnormal, will need to be interpreted in the context of patient's history of polymyalgia rheumatica.
Follow white count and temperature curve.
Care Review
Plan reviewed with: Other (Infectious Diseases Clinical Pharmacist)
[2024-12-22] MEDS: STERILE WATER FOR INJECTION 20 ML IV (15:25)
[2024-12-22] MEDS: ROCEPHIN 2000 MG IV (15:25)
--- NOTE | 2024-12-22 15:46 | W.PN.HOSP.TC ---
Today's Communication/Plan
-
Assessment / Plan
Assessment / Plan
General: No Apparent Distress, Comfortable and Conversant
HEENT: NormoCephalic, Moist mucous membranes, Atraumatic
Respiratory: Clear and Non Labored Respirations
Cardiac: S1/S2 and Regular Rhythm; No Rub or Gallop
GI: Soft, Non Tender, Non Distended and Normal Bowel Sounds
Musculoskeletal: No Edema, no deformity, right posterior cervical muscular hypertonicity
Skin: Warm and dry
: NO Ashton
Neuro: Awake, Alert, Nonfocal/grossly intact
Psych: Calm and Intact Judgment/Insight
Ms. Cooley is a 74-year-old female with a medical history of breast cancer (status post chemoradiation, now on letrozole), paroxysmal A-fib (on Eliquis), complete heart block (status post PPM 08/22/2024), aortic stenosis (status post TAVR
08/15/2024), hypertension, fibromyalgia, and polymyalgia rheumatica who was sent to the ED after outpatient labs revealed significant hyponatremia of 120. Her son (who is an ED physician at [facility]) reviewed the lab results and advised her to
go to the ED. She has had no neurologic symptoms. However she has been experiencing left thigh and right sided neck pain for several days after strenuous exercise which she had not done in a long time. CT imaging of her head and chest showed no
acute abnormalities. Labs were significant for serum sodium of 119 and a leukocytosis around 11,000. She was initially afebrile and normotensive although later developed a mild fever of 100.9 �F. She was given 0 cc of hypertonic saline and
admitted for further evaluation and management of hyponatremia.
Hyponatremia:
- Severe with initial serum sodium of 119, no neurologic symptoms
- Given 250 cc of hypertonic saline initially, and later given another 250 cc of hypertonic saline, given a dose of Lasix earlier this morning
- Serum sodium improved to 127 today, will continue frequent monitoring of serum sodium and mental status
- Continue fluid restriction
- Appreciate nephrology guidance
Enterococcus bacteremia:
- Unclear source however patient has history of recent TAVR and PPM in August 2024
- Continue antibiotics with ceftriaxone and ampicillin
- Will check echocardiogram
- Follow fever curve and white count
- Repeat cultures
- Appreciate ID guidance
Neck pain:
- Suspect due to muscular hypertonicity following exercise
- Continue multimodal pain control
A-fib:
- Currently rate controlled
- Continue home diltiazem 180 mg p.o. twice daily
- Anticoagulation with Eliquis 5 mg p.o. twice daily
DVT prophylaxis: Eliquis
CODE STATUS: Full code
Total time spent on today's encounter was 45 minutes
Anticipated Discharge: > 48 hours
Subjective/Interval History
-
Date of Service: December 22, 2024
Patient was seen and examined at bedside this morning. Has had intermittent fevers of the past 24 hours. Feels generally well other than right-sided neck pain and left leg pain.
Objective Data
-
Labs:
Laboratory Results
12/22/24 12/22/24
06:54 11:38
WBC 11.7 H
Hgb 9.5 L
Hct 28.0 L
Plt Count 243
Sodium 127 L 126 L
Potassium 4.0 4.5
Chloride 98 98
Carbon Dioxide 22 23
BUN 10 12
Creatinine 0.6 0.7
Glucose 101 H 124 H
Calcium 8.6 8.5
Vital Signs:
Vital Signs
Temp Pulse Resp BP Pulse Ox
99.2 F 112 18 105/55 97
12/22/24 11:54 12/22/24 11:54 12/22/24 11:54 12/22/24 11:54 12/22/24 11:54
I&O
12/21/24 12/22/24 12/23/24
06:59 06:59 06:59
Intake Total 720 / 720
Output Total 100 / 100 1200 / 1200
Balance -100 / -100 -480 / -480
Review of Systems
-
History Source: Patient
All other systems: Reviewed and negative
Musculoskeletal: Reports Joint Pain (Right neck pain)
Physical Exam
-
General: No Apparent Distress
[2024-12-22 18:09] LABS: Blood Urea Nitrogen 15 mg/dl (7-17); Calcium 8.3 mg/dl (8.4-10.2); Carbon Dioxide 20 mmol/L (22-30); Chloride 99 mmol/L (98-107); Estimated Creatinine Clearance 73 ml/min; Glucose 163 mg/dl (70-99); Potassium 4.7 mmol/L (3.5-5.1); Sodium 126 mmol/L (135-145); eGFR > 60.00
[2024-12-22] MEDS: SAMSCA 7.5 MG PO (22:18)
[2024-12-22] MEDS: CRESTOR 20 MG PO (22:19)
[2024-12-23] VITALS (23 sets, daily range): BP systolic 85–152; BP diastolic 54–88
[2024-12-23] MEDS: DILAUDID 0.5 MG IV ×4 (00:32→20:16)
[2024-12-23] MEDS: AMBIEN 5 MG PO (00:32)
[2024-12-23] MEDS: ROCEPHIN 2000 MG IV ×2 (03:16→17:26)
[2024-12-23] MEDS: STERILE WATER FOR INJECTION 20 ML IV ×2 (03:22→17:27)
[2024-12-23] MEDS: AMPICILLIN 108 MG IV ×6 (03:22→23:28)
[2024-12-23] MEDS: ROXICODONE 5 MG PO ×2 (03:27→09:36)
[2024-12-23] MEDS: TOPROL XL 25 MG PO (05:41)
[2024-12-23] MEDS: CARDIZEM CD 180 MG PO (08:05)
[2024-12-23] MEDS: FLEXERIL 5 MG PO ×2 (08:06→17:30)
[2024-12-23] MEDS: VALIUM 5 MG PO (08:06)
[2024-12-23] MEDS: FEMARA 2.5 MG PO (08:06)
[2024-12-23] MEDS: ELIQUIS 5 MG PO ×2 (08:06→20:07)
[2024-12-23] MEDS: PROTONIX 20 MG PO ×2 (08:06→20:07)
[2024-12-23] MEDS: LYRICA 75 MG PO ×2 (08:06→20:07)
[2024-12-23] MEDS: ZESTRIL 40 MG PO (08:07)
[2024-12-23] MEDS: LIDOCAINE 4% PATCH 2 PATCH TOPICAL (08:08)
[2024-12-23 08:13] LABS: Erythrocyte Sed Rate 99 mm/hour (0-20)
[2024-12-23 10:45] LABS: % Basophils 0.7 % (0-2); % Eosinophils 0.4 % (0-6); % Immature Granulocytes 0.5 % (0-0.5); % Lymphocytes 6.4 % (20.5-51.1); % Monocytes 11.3 % (1.7-9.3); % Neutrophils 80.7 % (42.2-75.2); Absolute Basophils 0.1 10^3/uL (0-0.2); Absolute Eosinophils 0.1 10^3/uL (0-0.7); Absolute Immature Granulocytes 0.1 10^3/uL (0-0.05); Absolute Lymphocytes 0.8 10^3/uL (1.2-3.4); Absolute Monocytes 1.5 10^3/uL (0.1-0.6); Absolute Neutrophils 10.6 10^3/uL (1.4-6.5); Hematocrit 26.2 % (37.0-47.0); Hemoglobin 8.7 g/dL (12.0-16.0); Mean Corp Hgb Conc. 33.2 g/dL (33.0-37.0); Mean Corpuscular Hgb 28.2 pg (27.0-31.0); Mean Corpuscular Volume 84.8 fL (81.0-99.0); Mean Platelet Volume 10.3 fL (7.4-10.4); Nucleated Red Blood Cells % 0 %; Platelet Count 272 10^3/uL (130-400); Red Blood Cell Count 3.09 10^6/uL (4.20-5.40); Red Cell Dist. Width 14.5 % (11.5-14.5); White Blood Cell Count 13.1 10^3/uL (4.8-10.8)
--- NOTE | 2024-12-23 10:52 | W.PN.NEPH.PH ---
Today's Communication / Plan
-
samsca
hold high dose of ACEI for marginal BPs
Assessment/Plan
-
Impression:
Symptomatic acute on chronic hyponatremia (120)
Neck and thigh pain
Hypertension
Paroxysmal
Anemia
History of breast cancer
Chronic pain and fibromyalgia
Gram-positive cocci in chains
Plan:
Hyponatremia: SIADH, U osmo 443
sodium still at 127 despite diuretics, samsca
suggest high ADH drive, will redose samsca today
pain control
Bp are low end, hold ACEI -cotn BB and CCB
Enterococcus bacteremia -w/u n progress for MRI today, abx per ID
-
-
Date of Service: December 23, 2024
CC / HPI / ROS
-
Chief Complaint:
Hyponatremia
History of Present Illness:
Serum sodium no change at 127 s/p samsca 7.5mg 12/22
Hemodynamically stable, soft Bps
fever last evening
WBC up at 13k, bld cx +ve still
Review of Systems:
non oliguric
c/o right shoulder, nack pain
poor appetite, no n/v
Labs
-
Labs:
WBC Cancelled 12/23/24 10:10
RBC Cancelled 12/23/24 10:10
Hgb Cancelled 12/23/24 10:10
Hct Cancelled 12/23/24 10:10
Plt Count Cancelled 12/23/24 10:10
Sodium Cancelled 12/23/24 10:10
Potassium Cancelled 12/23/24 10:10
Chloride Cancelled 12/23/24 10:10
Carbon Dioxide Cancelled 12/23/24 10:10
BUN Cancelled 12/23/24 10:10
Creatinine Cancelled 12/23/24 10:10
eGFR Cancelled 12/23/24 10:10
Glucose Cancelled 12/23/24 10:10
Calcium Cancelled 12/23/24 10:10
Albumin 3.4 g/dl (3.5-5.0) L 12/20/24 23:43
Physical Exam
-
Vital Signs:
Vital Signs
Temp Pulse Resp BP Pulse Ox
99.8 F 114 16 108/70 94
12/23/24 07:00 12/23/24 08:05 12/23/24 07:00 12/23/24 08:05 12/23/24 07:00
Cardiovascular:: Regular rate and rhythm
Respiratory:: Bilateral: CTA
Lung Excursion:: Normal
Abdomen:: Nontender and Soft
Bowel Sounds:: Normal
Extremity Edema:: None: Bilateral:
Ashton Catheter: No
--- NOTE | 2024-12-23 11:33 | CON.CAR ---
Addendum entered and electronically signed by Jose Gomez MD 12/23/24 15:16:
I saw and examined the patient.
The SILK WEAVER's note was reviewed and I agree with the note.
Comment: 74-year-old female with severe symptomatic aortic stenosis s/p right transfemoral TAVR with Evolute FX Plue 29 mm valve on 08/15/2024, complete heart block s/p dual-chamber Medtronic pacemaker implant 08/22/24, paroxysmal atrial fibrillation
on Eliquis, iRBBB, hypertension, dyslipidemia, prior right breast cancer status post chemo and radiation, PMR and mildly dilated ascending aorta at 4.0 cm, who presents to the ER with fevers at home and abnormal labs ordered by her oncologist.
We are consulted now for AF RVR and possible endocarditis.
SHe has had persistently positive blood Cx's with TAVR and PPM.
- SAMY Thursday
- AF RVR hold dilt start amio gtt with bolus
Original Note:
Consultation
Consultation Request
Date/Time Consultation Requested: 12/23/24 11:15 AM
Date/Time Consultation Performed: 12/23/24 1130 AM
Requesting Provider: Dr. Sparks
Performing Provider: SINDY Sarmiento for Dr. Gomez
Reason for Consultation: Endocarditis
Medical History
-
Chief Complaint: Abnormal labs and fatigue
History of Present Illness:
Mrs. Cooley is a 74-year-old female with severe symptomatic aortic stenosis s/p right transfemoral TAVR with Evolute FX Plue 29 mm valve on 08/15/2024, complete heart block s/p dual-chamber Medtronic pacemaker implant 08/22/24, paroxysmal atrial
fibrillation on Eliquis, iRBBB, hypertension, dyslipidemia, prior right breast cancer status post chemo and radiation, PMR and mildly dilated ascending aorta at 4.0 cm, who presents to the ER with fevers at home and abnormal labs ordered by her
oncologist. She complained of left thigh soreness and right sided neck pain for several days, noted to have hyponatremia with sodium 120 on admission. She is admitted to the hospitalist service and we are consulted for possible endocarditis given
persistently positive blood cultures for Enterococcus faecalis since 12/21/24. She denies any recent dental work.
Past Medical History
Past Medical History: Other (as above)
Past Surgical History: Other (as above )
Social History
Tobacco: Non-Smoker
Alcohol: None
Personal:
Living: With Family
Employment: Retired
Family History
Family History: Reviewed & Not Pertinent
Allergies / Home Medications
Allergy/AdvReac Type Severity Reaction Status Date / Time
levofloxacin (From Levaquin) Allergy Hives Verified 12/20/24 21:31
'anesthesia meds' Allergy Nausea / Uncoded 12/20/24 21:31
Vomiting
�Medication �Instructions �Recorded �Confirmed �Type
zolpidem 12.5 mg tablet,extended 12.5 mg PO HS SLEEP 07/08/24 12/21/24 History
release,multiphase
apixaban 5 mg tablet (Eliquis) 5 mg PO BID Blood clot 08/16/24 12/21/24 Rx
prevention/tx 30 days #60 tabs
diltiazem HCl 180 mg 180 mg PO BID Blood pressure #0 08/16/24 12/21/24 Rx
capsule,extended release 24 hr caps
lisinopril 40 mg tablet 40 mg PO BID Blood pressure #0 tabs 08/16/24 12/21/24 Rx
omeprazole 20 mg capsule,delayed 20 mg PO BID 08/20/24 12/21/24 History
release
pregabalin 75 mg capsule 75 mg PO BID 08/20/24 12/21/24 History
rosuvastatin 20 mg tablet 20 mg PO DAILY High cholesterol 08/20/24 12/21/24 History
metoprolol succinate 25 mg 25 mg PO DAILY 08/23/24 12/21/24 History
tablet,extended release 24 hr
letrozole 2.5 mg tablet 2.5 mg PO DAILY 12/21/24 12/21/24 History
Review of Systems
-
History Source: Patient
All other systems: Negative unless noted
Physical Exam
Vital Signs
Temp Pulse Resp BP Pulse Ox
99.8 F 114 16 108/70 94
12/23/24 07:00 12/23/24 08:05 12/23/24 07:00 12/23/24 08:05 12/23/24 07:00
Lab Results
12/23/24 10:10
12/23/24 10:10
Physical Exam
General: Well Developed and No Apparent Distress
HEENT: Normocephalic and Anicteric
Respiratory: Clear and Non Labored Respirations
Cardiac: S1/S2, Regular Rhythm and Other (PPM site intact )
Breast: Deferred by me
GI: Soft, Non Tender, Non Distended and Normal Bowel Sounds
Rectal: Deferred by Provider
Genito-urinary: No Costovertebral Tender
Musculoskeletal: No Clubbing, No Cyanosis, No Edema and Other (right sided neck pain with limited mobility )
Skin: Warm and Dry
Neuro: AO x 3
Psych: Calm
Impression / Plan
-
Enterococcus bacteremia - positive blood cultures for Enterococcus faecalis since 12/21/24.
- ID following, on antibiotics.
- TTE 12/22/24: EF 60-65%, mild cLVH, normal RV size/function, Pacer wire seen in right ventricle. Well seated TAVR Evolut 29 with peak/mean gradients 48/26 mmHg, trivial AR. Compared to prior 09/14/24, aortic valve gradients are now higher,
previously peak/mean 23/13 mmHg.
- recommend SAYM 12/26/24.
Aortic stenosis - s/p TAVR 08/15/[address] Fisher and Dr[address] Marks.
- echo as above.
HTN - stable on medical therapy, continue.
- monitor closely.
HLD - stable on Crestor, continue.
Afib - paroxysmal.
- stable in NSR on Diltiazem and Toprol.
- continue Eliquis.
Data Reviewed
-
Medical Tests (Nuc Med, Echo etc): Report Reviewed by me (echo 12/22/24: EF 60-65%, mild cLVH, normal RV size/function, Pacer wire seen in right ventricle. Well seated TAVR Evolut 29 with peak/mean gradients 48/26 mmHg, trivial AR. Compared to prior
09/14/24, aortic valve gradients are now higher, previously peak/mean 23/13 mmHg.)
Labs: Labs Reviewed by me
Old Records: Reviewed
[2024-12-23 11:49] LABS: Blood Urea Nitrogen 16 mg/dl (7-17); Calcium 8.3 mg/dl (8.4-10.2); Carbon Dioxide 19 mmol/L (22-30); Chloride 100 mmol/L (98-107); Estimated Creatinine Clearance 73 ml/min; Glucose 137 mg/dl (70-99); Sodium 127 mmol/L (135-145); eGFR > 60.00
[2024-12-23] MEDS: MIRALAX 17 GRAMS PO (11:59)
[2024-12-23] MEDS: SENOKOT-S 1 TABLET PO ×2 (11:59→20:07)
--- NOTE | 2024-12-23 12:30 | W.PN.ID1 ---
Date of Service
Date of Service: December 23, 2024
Today's Communication
Continue antibiotics. See below�
Assessment / Plan
Enterococcus faecalis bacteremia (sustained)
Leukocytosis
Fevers
Hyponatremia
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
Hx breast CA (chemo/XRT/lumpectomy)
pA-fib
Aortic stenosis
HTN
Fibromyalgia
Polymyalgia rheumatica
Recommendations:
Blood cultures from 12/21/12/22 positive for Enterococcus faecalis. Blood cultures from 12/22 positive for growth. These were obtained prior to initiation of antibiotics.
Continue with ampicillin 2 gm IV q4h and ceftriaxone 2gm IV q12h.
Given recent TAVR (August) concern at this point in time would be for prosthetic valve endocarditis.
- TTE negative. Would recommend SAMY.
ESR and CRP elevated, but needs to be interpreted in the context of patient's history of polymyalgia rheumatica.
Follow white count and temperature curve.
Serial blood cultures ordered.
����������������������������������������������������������
Chief Complaint
-: Bacteremia
Subjective / Review of Systems
Patient seen and examined. Notes ongoing right lateral neck discomfort. Fevers noted yesterday.
Vital Signs / Physical Exam
Vital Signs
Vital Signs
Temp Pulse Resp BP Pulse Ox
99.6 F 100 18 105/58 92
12/23/24 11:00 12/23/24 11:00 12/23/24 11:00 12/23/24 11:00 12/23/24 11:00
Physical Exam
Constitutional: Comfortable and Non-toxic
Eyes: No Conjunctival Hemorrhage and Sclera Anicteric
Cardiovascular: S1/S2 and Murmur; Negative S3/S4
Pulmonary: Clear; Negative Wheezes, Rales or Rhonchi
Gastrointestinal: Soft, Non Tender, Distended, Normal Bowel Sounds, No Rebound and No Guarding
Extremities: Negative Edema, Cyanosis, Splinter Hemorrhage or Janeway Lesions
Neurological: Awake and Alert
Psychological: Calm
Objective Data
Lab Data
Lab Results
12/23/24 10:10
12/23/24 10:10
ESR 99 mm/hour (0-20) H 12/23/24 06:48
Estimated Creat Clear Cancelled 12/23/24 10:10
Total Bilirubin 0.6 mg/dl (0.2-1.3) 12/20/24 23:43
AST 56 U/L (14-36) H 12/20/24 23:43
ALT 52 U/L (0-35) H 12/20/24 23:43
Alkaline Phosphatase 119 U/L (38-126) 12/20/24 23:43
C-Reactive Protein 184.90 mg/L (0.0-10.00) H 12/23/24 06:48
Most recent labs reviewed.
Micro Results:
12/23/24 12:06 Blood Culture - Pending
Blood/Venous
12/21/24 14:35 Blood Culture - Preliminary
Blood/Venous Enterococcus faecalis
Gram Stain - Final
12/21/24 13:56 Blood Culture - Preliminary
Blood/Venous Enterococcus faecalis
Gram Stain - Final
12/22/24 09:27 Blood Culture - Preliminary
Blood/Venous Positive culture in progress
Gram Stain - Final
12/22/24 09:54 Blood Culture - Preliminary
Blood/Venous Positive culture in progress
Gram Stain - Final
Imaging:
12/21/2024 CXR (2 view): No significant focal parenchymal opacification or vascular congestion.
12/21/24 CT head without contrast: Unenhanced CT imaging of the head reveals no findings to suggest recent infarction, intracranial hemorrhage, extra-axial fluid collection, mass effect or midline shift. The ventricles, cisterns and sulci are within
the limits of normal. The brainstem and posterior fossa structures demonstrate no significant focal abnormality.
12/21/2024 CT chest (PE study): No evidence of central pulmonary embolism. Some right upper lobe scarring and bibasilar subsegmental atelectasis.
Care Review
Plan reviewed with: Physician (Hospitalist)
--- NOTE | 2024-12-23 13:39 | W.PN.HOSP.TC ---
Today's Communication/Plan
-
Assessment / Plan
Assessment / Plan
General: No Apparent Distress, Comfortable and Conversant
HEENT: NormoCephalic, Moist mucous membranes, Atraumatic
Respiratory: Clear and Non Labored Respirations
Cardiac: S1/S2 and Regular Rhythm; No Rub or Gallop
GI: Soft, Non Tender, Non Distended and Normal Bowel Sounds
Musculoskeletal: No Edema, no deformity, right posterior cervical muscular hypertonicity
Skin: Warm and dry
: NO Ashton
Neuro: Awake, Alert, Nonfocal/grossly intact
Psych: Calm and Intact Judgment/Insight
Ms. Cooley is a 74-year-old female with a medical history of breast cancer (status post chemoradiation, now on letrozole), paroxysmal A-fib (on Eliquis), complete heart block (status post PPM 08/22/2024), aortic stenosis (status post TAVR
08/15/2024), hypertension, fibromyalgia, and polymyalgia rheumatica who was sent to the ED after outpatient labs revealed significant hyponatremia of 120. Her son (who is an ED physician at [facility]) reviewed the lab results and advised her to
go to the ED. She has had no neurologic symptoms. However she has been experiencing left thigh and right sided neck pain for several days after strenuous exercise which she had not done in a long time. CT imaging of her head and chest showed no
acute abnormalities. Labs were significant for serum sodium of 119 and a leukocytosis around 11,000. She was initially afebrile and normotensive although later developed a mild fever of 100.9 �F. She was given 2050 cc of hypertonic saline and
admitted for further evaluation and management of hyponatremia.
Enterococcus bacteremia:
- Unclear source however suspect endocarditis with history of recent TAVR and PPM in August 2024
- Continue antibiotics with ceftriaxone and ampicillin, IV fluids
- Transthoracic echocardiogram unrevealing for clear vegetations, cardiology following and planning transesophageal echo 08/28
- Follow fever curve and white count
- Repeat cultures pending
- Appreciate ID guidance
Hyponatremia:
- Severe with initial serum sodium of 119, no neurologic symptoms
- Given a total of 500 cc of hypertonic saline, later given a dose of Lasix
- Serum sodium stable at 127 today, will continue to monitor serum sodium and mental status
- Continue free water restriction
- Appreciate nephrology guidance
Neck pain:
- Suspect due to muscular hypertonicity following exercise
- Continue multimodal pain control
- Follow-up MRI of cervical and thoracic spine
A-fib:
- Currently rate controlled
- Continue home diltiazem 180 mg p.o. twice daily
- Anticoagulation with Eliquis 5 mg p.o. twice daily
DVT prophylaxis: Eliquis
CODE STATUS: Full code
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 One of her sons, Yoav, is an emergency medicine physician at [facility], can be contacted on his cell phone at [phone].
Total time spent on today's encounter was 45 minutes
Anticipated Discharge: > 48 hours
Subjective/Interval History
-
Date of Service: December 23, 2024
Patient was seen and examined at bedside this morning. Continues to have intermittent fevers. Persistent neck pain which she thinks is slightly worse today.
Objective Data
-
Labs:
Laboratory Results
12/23/24 12/23/24
06:48 10:10
WBC 13.1 H Cancelled
Hgb 8.7 L Cancelled
Hct 26.2 L Cancelled
Plt Count 272 Cancelled
Sodium 127 L Cancelled
Potassium 5.0 Cancelled
Chloride 100 Cancelled
Carbon Dioxide 19 L Cancelled
BUN 16 Cancelled
Creatinine 0.7 Cancelled
Glucose 137 H Cancelled
Calcium 8.3 L Cancelled
Vital Signs:
Vital Signs
Temp Pulse Resp BP Pulse Ox
99.6 F 100 18 105/58 92
12/23/24 11:00 12/23/24 11:00 12/23/24 11:00 12/23/24 11:00 12/23/24 11:00
I&O
12/22/24 12/23/24 12/24/24
06:59 06:59 06:59
Intake Total 720 / 720 1632 / 1632
Output Total 1200 / 1200 1000 / 1000
Balance -480 / -480 632 / 632
Review of Systems
-
History Source: Patient
All other systems: Reviewed and negative
Constitutional: Reports Fatigue
Musculoskeletal: Reports Muscle Pain (Right neck and shoulder pain)
Physical Exam
-
General: Pain (Neck pain)
[2024-12-23] MEDS: NSS 1000 IV ×3 (13:54→23:24)
[2024-12-23 15:31] LABS: Glucose - Point of Care 128 mg/dl (70-99)
--- NOTE | 2024-12-23 16:11 | RR ---
A Rapid Response was called on this patient, please see Rapid Response form.
--- NOTE | 2024-12-23 16:11 | PTCARENOTE ---
pt going to MRI. pt's HR 160-170's sustaining. Cards made aware. Amio gtt ordered. pt refusing amio gtt. cards to change amio to Cardizem gtt. awaiting orders. pt HR still on 170's. Rapid called at this time. Vss, room air. EKG done w/ Afib RVR. pt
to be transferred to IVU room 0745. called report. Pt belongings with the pt. Family updated.
[2024-12-23] MEDS: CARDIZEM 10 MG IV (16:32)
--- NOTE | 2024-12-23 16:32 | CM ---
Spoke with patient in room .Family visiting.
Pt requested [facility] at de .
Referral placed
PLAN Home with [facility] fax [phone]
[2024-12-23] MEDS: CARDIZEM 125 IV (16:36)
--- NOTE | 2024-12-23 17:00 | TRANSFER ---
Received pt from for AFIB w/ RVR. Monitor showing JAVI, HR 150-160, BP 116/70. Denies shortness of breath, dizziness or palpitations. Cardizem bolus and drip ordered and given. C/O right neck and left thigh discomfort, given flexeril as
ordered. Instructed to call for assistance when getting out of bed. Family at bedside, call aguilar in reach.
[2024-12-23] MEDS: LOPRESSOR 5 MG IV ×2 (18:28→21:21)
[2024-12-23] MEDS: SAMSCA 15 MG PO (20:05)
[2024-12-23] MEDS: CRESTOR 20 MG PO (21:21)
--- NOTE | 2024-12-23 23:10 | PTCARENOTE ---
Assumed care on pt at 1900, aaox3, drowsy and forgetful at times, family at bedside. Cardizem infusing at 15mg/hr via L ac, IVF's at 100ml/hr via L wrist. Afib on the monitor. HR sustaining 120- 145's after pt ambulated to bathroom with assist x1,
denied dizziness or CP. Lopressor 5mg IV given x1 with + effect, HR 110's. BP 100/60's. Pt c/o R side of neck pain, warm pad applied, pain meds administered with little effect. Call aguilar within reach, advised pt to call for assistance.
[2024-12-24] VITALS (12 sets, daily range): BP systolic 90–125; BP diastolic 54–72; BMI 28.7
[2024-12-24] MEDS: CARDIZEM 125 IV ×3 (02:25→19:08)
[2024-12-24] MEDS: STERILE WATER FOR INJECTION 20 ML IV ×2 (03:08→16:27)
[2024-12-24] MEDS: ROCEPHIN 2000 MG IV ×2 (03:09→16:27)
[2024-12-24 03:11] LABS: % Basophils 0.6 % (0-2); % Eosinophils 1.1 % (0-6); % Immature Granulocytes 0.6 % (0-0.5); % Lymphocytes 8.8 % (20.5-51.1); % Monocytes 10.2 % (1.7-9.3); % Neutrophils 78.7 % (42.2-75.2); Absolute Basophils 0.1 10^3/uL (0-0.2); Absolute Eosinophils 0.1 10^3/uL (0-0.7); Absolute Immature Granulocytes 0.1 10^3/uL (0-0.05); Absolute Lymphocytes 0.9 10^3/uL (1.2-3.4); Absolute Neutrophils 7.8 10^3/uL (1.4-6.5); Hematocrit 24.4 % (37.0-47.0); Hemoglobin 8.2 g/dL (12.0-16.0); Mean Corp Hgb Conc. 33.6 g/dL (33.0-37.0); Mean Corpuscular Hgb 28.3 pg (27.0-31.0); Mean Corpuscular Volume 84.1 fL (81.0-99.0); Mean Platelet Volume 9.5 fL (7.4-10.4); Nucleated Red Blood Cells % 0 %; Platelet Count 282 10^3/uL (130-400); Red Cell Dist. Width 14.6 % (11.5-14.5); White Blood Cell Count 9.9 10^3/uL (4.8-10.8)
[2024-12-24] MEDS: DILAUDID 0.5 MG IV (03:20)
[2024-12-24] MEDS: AMPICILLIN 108 MG IV ×6 (03:20→23:29)
[2024-12-24 03:38] LABS: Blood Urea Nitrogen 9 mg/dl (7-17); Calcium 8.3 mg/dl (8.4-10.2); Carbon Dioxide 24 mmol/L (22-30); Chloride 101 mmol/L (98-107); Estimated Creatinine Clearance 85 ml/min; Glucose 134 mg/dl (70-99); Potassium 4.6 mmol/L (3.5-5.1); Sodium 128 mmol/L (135-145); eGFR > 60.00
[2024-12-24] MEDS: MIRALAX 17 GRAMS PO (06:16)
[2024-12-24] MEDS: CHLORASEPTIC/SORE THROAT SPRAY 1 SPRAY PO (06:16)
[2024-12-24] MEDS: TOPROL XL 25 MG PO ×2 (08:13→20:06)
[2024-12-24] MEDS: ELIQUIS 5 MG PO ×2 (08:14→20:05)
[2024-12-24] MEDS: LIDOCAINE 4% PATCH 2 PATCH TOPICAL (08:14)
[2024-12-24] MEDS: FLEXERIL 5 MG PO ×2 (08:15→23:38)
[2024-12-24] MEDS: CHLORASEPTIC/SORE THROAT SPRAY 2 SPRAY PO (08:26)
[2024-12-24] MEDS: LOPRESSOR 5 MG IV (08:36)
[2024-12-24] MEDS: LYRICA 75 MG PO ×2 (08:51→20:05)
[2024-12-24] MEDS: PROTONIX 20 MG PO ×2 (08:51→20:05)
[2024-12-24] MEDS: SENOKOT-S 1 TABLET PO ×2 (08:52→20:06)
--- NOTE | 2024-12-24 09:18 | W.PN.ID1 ---
Date of Service
Date of Service: December 24, 2024
Today's Communication
SAMY Mon
MRI of C/T spine when stable.
Continue amp/ceftriaxone
Assessment / Plan
Enterococcus faecalis bacteremia (sustained)
Leukocytosis - resolved
Fevers - trending down
Hyponatremia
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
Neck pain
Hx breast CA (chemo/XRT/lumpectomy)
pA-fib
Aortic stenosis
HTN
Fibromyalgia
Polymyalgia rheumatica
Recommendations:
Blood cultures from 12/21 and 12/22 positive for Enterococcus faecalis (obtained prior to initiation of antibiotics).
Continue to repeat blood cultures until clearance.
Given recent TAVR and PPM (August) concern at this point in time would be for prosthetic valve/PPM endocarditis.
- TTE negative.
- SAMY Thursday
Given acute severe neck pain, recommend MRI C/T spine to assess for discitis/osteo/epidural abscess.
Continue with ampicillin 2 gm IV q4h and ceftriaxone 2gm IV q12h.
Follow white count and temperature curve.
����������������������������������������������������������
Chief Complaint
-: Bacteremia
Subjective / Review of Systems
Continues to have neck pain.
Vital Signs / Physical Exam
Vital Signs
Vital Signs
Temp Pulse Resp BP Pulse Ox
100.1 F 150 18 100/62 94
12/23/24 22:40 12/24/24 08:36 12/23/24 22:40 12/24/24 08:36 12/23/24 22:40
Physical Exam
Constitutional: Non-toxic
Eyes: No Conjunctival Hemorrhage and Sclera Anicteric
Cardiovascular: S1/S2, Murmur and Other (RCW PPM site no erythema/warmth/induration); Negative S3/S4
Pulmonary: Clear
Gastrointestinal: Soft, Non Tender, Distended, Normal Bowel Sounds, No Rebound and No Guarding
Extremities: Negative Edema, Splinter Hemorrhage or Janeway Lesions
Neurological: AO x 3
Objective Data
Lab Data
Lab Results
12/24/24 02:57
12/24/24 02:57
ESR 99 mm/hour (0-20) H 12/23/24 06:48
Estimated Creat Clear 85 ml/min 12/24/24 02:57
Total Bilirubin 0.6 mg/dl (0.2-1.3) 12/20/24 23:43
AST 56 U/L (14-36) H 12/20/24 23:43
ALT 52 U/L (0-35) H 12/20/24 23:43
Alkaline Phosphatase 119 U/L (38-126) 12/20/24 23:43
C-Reactive Protein 184.90 mg/L (0.0-10.00) H 12/23/24 06:48
Most recent labs reviewed.
Micro Results:
12/21/24 13:56 Blood Culture - Preliminary
Blood/Venous Enterococcus faecalis
Gram Stain - Final
12/21/24 14:35 Blood Culture - Preliminary
Blood/Venous Enterococcus faecalis
Gram Stain - Final
12/24/24 02:57 Blood Culture - Pending
Blood/Venous
12/23/24 12:40 Blood Culture - Pending
Blood/Venous
12/23/24 12:06 Blood Culture - Pending
Blood/Venous
12/22/24 09:27 Blood Culture - Preliminary
Blood/Venous Positive culture in progress
Gram Stain - Final
12/22/24 09:54 Blood Culture - Preliminary
Blood/Venous Positive culture in progress
Gram Stain - Final
Imaging:
12/21/2024 CXR (2 view): No significant focal parenchymal opacification or vascular congestion.
12/21/24 CT head without contrast: Unenhanced CT imaging of the head reveals no findings to suggest recent infarction, intracranial hemorrhage, extra-axial fluid collection, mass effect or midline shift. The ventricles, cisterns and sulci are within
the limits of normal. The brainstem and posterior fossa structures demonstrate no significant focal abnormality.
12/21/2024 CT chest (PE study): No evidence of central pulmonary embolism. Some right upper lobe scarring and bibasilar subsegmental atelectasis.
[2024-12-24] MEDS: NSS 1000 IV ×2 (10:19→21:36)
[2024-12-24] MEDS: TYLENOL 650 MG PO ×3 (10:27→18:45)
--- NOTE | 2024-12-24 10:33 | W.PN.CD ---
Today's Communication / Plan
-
Control HR
SAMY Thursday
Impression / Plan
-
Enterococcus bacteremia - positive blood cultures for Enterococcus faecalis since 12/21/24.
- ID following, on antibiotics.
- TTE 12/22/24: EF 60-65%, mild cLVH, normal RV size/function, Pacer wire seen in right ventricle. Well seated TAVR Evolut 29 with peak/mean gradients 48/26 mmHg, trivial AR. Compared to prior 09/14/24, aortic valve gradients are now higher,
previously peak/mean 23/13 mmHg.
- recommend SAMY 12/26/24.
AF RVR
- dilt gtt
- metop 25 mg bid
- had SR restored 12/24 late morning
Aortic stenosis - s/p TAVR 08/15/[address] Fisher and Dr[address] Marks.
- echo as above.
HTN - stable on medical therapy, continue.
- monitor closely.
HLD - stable on Crestor, continue.
Afib - paroxysmal.
- continue Eliquis.
Physical Exam
Vital Signs/Labs
Vital Signs
Temp Pulse Resp BP Pulse Ox
100.1 F 150 18 100/62 94
12/23/24 22:40 12/24/24 08:36 12/23/24 22:40 12/24/24 08:36 12/23/24 22:40
12/24/24 02:57
12/24/24 02:57
Physical Exam
Constitutional: No acute distress
EENT: Anicteric
Cardiovascular: Rhythm/rate is irregular
Respiratory: Respiratory effort normal and Lungs clear to auscul.
GI: Soft
Neuro/Psych: Alert and Oriented
Data Reviewed
-
Date of Service: December 24, 2024
EKG: Tracing Personally Visualized and interpreted (af and sr)
Echo: Tracing Personally Visualized and interpreted and Report Reviewed by me
Labs: Labs Reviewed by me
[2024-12-24] MEDS: FEMARA PO (10:35)
--- NOTE | 2024-12-24 10:39 | W.PN.NEPH.PH ---
Today's Communication / Plan
-
wean IVF as able, labs in am
Assessment/Plan
-
Impression:
Symptomatic acute on chronic hyponatremia (120)
Neck and thigh pain
Hypertension
Paroxysmal
Anemia
History of breast cancer
Chronic pain and fibromyalgia
Gram-positive cocci in chains
Plan:
Hyponatremia: SIADH, U osmo 443
sodium still at 128 despite samsca
now that afib converted to sinus expect stable hemodynamics
encourage solute intake
monitor sodium with FR and pain control
IVF per primary , wean as able
no samsca today
Bp are low end, hold ACEI -cotn BB and Dilt gtt
Enterococcus bacteremia -w/u n progress for MRI today, abx per ID
SAMY thursday
-
-
Date of Service: December 24, 2024
CC / HPI / ROS
-
Chief Complaint:
Hyponatremia
History of Present Illness:
Serum sodium only upto 128 s/p samsca 12/23, 12/22
moved to IVU on 12/23 for afib with RVR on dilt gtt, converted to sinus this am
soft BP, meds on hold
no fever, wbc better 9.9
Review of Systems:
non oliguric
c/o right shoulder, neck pain
poor appetite, no n/v
Labs
-
Labs:
WBC 9.9 10^3/uL (4.8-10.8) 12/24/24 02:57
RBC 2.90 10^6/uL (4.20-5.40) L 12/24/24 02:57
Hgb 8.2 g/dL (12.0-16.0) L 12/24/24 02:57
Hct 24.4 % (37.0-47.0) L 12/24/24 02:57
Plt Count 282 10^3/uL (130-400) 12/24/24 02:57
Sodium 128 mmol/L (135-145) L 12/24/24 02:57
Potassium 4.6 mmol/L (3.5-5.1) 12/24/24 02:57
Chloride 101 mmol/L (98-107) 12/24/24 02:57
Carbon Dioxide 24 mmol/L (22-30) 12/24/24 02:57
BUN 9 mg/dl (7-17) 12/24/24 02:57
Creatinine 0.5 mg/dL (0.6-1.0) L 12/24/24 02:57
eGFR > 60.00 12/24/24 02:57
Glucose 134 mg/dl (70-99) H 12/24/24 02:57
Calcium 8.3 mg/dl (8.4-10.2) L 12/24/24 02:57
Albumin 3.4 g/dl (3.5-5.0) L 12/20/24 23:43
Physical Exam
-
Vital Signs:
Vital Signs
Temp Pulse Resp BP Pulse Ox
100.1 F 150 18 100/62 94
12/23/24 22:40 12/24/24 08:36 12/23/24 22:40 12/24/24 08:36 12/23/24 22:40
Cardiovascular:: Regular rate and rhythm (murmur)
Respiratory:: Bilateral: CTA
Lung Excursion:: Normal
Abdomen:: Nontender and Soft
Bowel Sounds:: Normal
Extremity Edema:: None: Bilateral:
Ashton Catheter: No
--- NOTE | 2024-12-24 14:33 | W.PN.HOSP.TC ---
Today's Communication/Plan
-
Assessment / Plan
Assessment / Plan
General: No Apparent Distress, Comfortable and Conversant
HEENT: NormoCephalic, Moist mucous membranes, Atraumatic
Respiratory: Clear and Non Labored Respirations
Cardiac: Tachycardic and irregular with heart rate around 100, no murmur
GI: Soft, Non Tender, Non Distended and Normal Bowel Sounds
Musculoskeletal: No Edema, no deformity, right posterior cervical muscular hypertonicity
Skin: Warm and dry
: NO Ashton
Neuro: Awake, Alert, Nonfocal/grossly intact
Psych: Calm and Intact Judgment/Insight
Ms. Cooley is a 74-year-old female with a medical history of breast cancer (status post chemoradiation, now on letrozole), paroxysmal A-fib (on Eliquis), complete heart block (status post PPM 08/22/2024), aortic stenosis (status post TAVR
08/15/2024), hypertension, fibromyalgia, and polymyalgia rheumatica who was sent to the ED after outpatient labs revealed significant hyponatremia of 120. Her son (who is an ED physician at [facility]) reviewed the lab results and advised her to
go to the ED. She has had no neurologic symptoms. However she has been experiencing left thigh and right sided neck pain for several days after strenuous exercise which she had not done in a long time. CT imaging of her head and chest showed no
acute abnormalities. Labs were significant for serum sodium of 119 and a leukocytosis around 11,000. She was initially afebrile and normotensive although later developed a mild fever of 100.9 �F. She was given 2050 cc of hypertonic saline and
admitted for further evaluation and management of hyponatremia.
Enterococcus bacteremia:
- Unclear source however suspect endocarditis with history of recent TAVR and PPM in August 2024
- Continue antibiotics with ceftriaxone and ampicillin, IV fluids
- Transthoracic echocardiogram unrevealing for clear vegetations, cardiology following and planning transesophageal echo 12/26
- Follow fever curve and white count
- Repeat cultures negative so far
- Appreciate ID guidance
A-fib with RVR:
- Developed sustained tachycardia with heart rate around 130 yesterday when attempting to get MRI which was postponed
- Now on diltiazem drip and scheduled metoprolol succinate 25 mg p.o. twice daily, titrate diltiazem drip as able, holding home oral diltiazem currently
- Treat underlying bacteremia with suspected infective endocarditis which is likely an instigating factor here
- Appreciate cardiology guidance, planning SAMY 12/26
- Continue anticoagulation with home dose of Eliquis
Hyponatremia:
- Severe with initial serum sodium of 119, no neurologic symptoms
- Given a total of 500 cc of hypertonic saline, later given a dose of Lasix
- Now on continuous IV fluids due to sepsis secondary to bacteremia
- Serum sodium stable at 128 today, will continue to monitor serum sodium and mental status
- Continue free water restriction
- Appreciate nephrology guidance
Neck pain:
- Suspect due to muscular hypertonicity following exercise
- Continue multimodal pain control
- Obtain MRI of cervical and thoracic spine, aborted yesterday due to tachycardia
DVT prophylaxis: Eliquis
CODE STATUS: Full code
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 One of her sons, Yoav, is an emergency medicine physician at [facility], can be contacted on his cell phone at [phone].
Total time spent on today's encounter was 45 minutes
Anticipated Discharge: > 48 hours
Subjective/Interval History
-
Date of Service: December 24, 2024
Patient was seen and examined at bedside this morning. Ongoing right-sided neck pain. Was upgraded to the IV yesterday after rapid response for sustained tachycardia with A-fib when attempting to get MRI.
Objective Data
-
Labs:
Laboratory Results
12/24/24
02:57
WBC 9.9
Hgb 8.2 L
Hct 24.4 L
Plt Count 282
Sodium 128 L
Potassium 4.6
Chloride 101
Carbon Dioxide 24
BUN 9
Creatinine 0.5 L
Glucose 134 H
Calcium 8.3 L
Vital Signs:
Vital Signs
Temp Pulse Resp BP Pulse Ox
98.7 F 150 20 100/62 98
12/24/24 12:00 12/24/24 08:36 12/24/24 12:00 12/24/24 08:36 12/24/24 14:31
I&O
12/23/24 12/24/24 12/25/24
06:59 06:59 06:59
Intake Total 1632 / 1632 1528 / 1528 460 / 460
Output Total 1000 / 1000 350 / 350 900 / 900
Balance 632 / 632 1178 / 1178 -440 / -440
Review of Systems
-
History Source: Patient
All other systems: Reviewed and negative
Musculoskeletal: Reports Joint Pain (Significant right-sided neck pain)
Physical Exam
-
General: No Apparent Distress
--- NOTE | 2024-12-24 16:01 | PTCARENOTE ---
Pt continues to c/o right sided neck or b/l neck pain. Pt given flexeril and tylenol. Heating pad and lidocaine patches applied. Will monitor.
--- NOTE | 2024-12-24 16:09 | PTCARENOTE ---
Pt converted to NSR at 1020. Pt unaware of conversion. VSS. EKG obtained. Meds as ordered. Will monitor.
--- NOTE | 2024-12-24 21:27 | PTCARENOTE ---
Pt rec'd in bed with by her side. Pt appears neurological intact answering questions appropriately. bibasilar rales noted, pt denies sob. Fluid restriction reviewed. Sinus with first degree av block. No afib noted. ht rates in 80's Cardizem
gtt continued at 15 ml /hr. Pain in neck despite Tylenol remains 5 per pt.
[2024-12-24] MEDS: CRESTOR 20 MG PO (21:36)
--- NOTE | 2024-12-24 23:58 | PTCARENOTE ---
Pt medicated with Flexeril at this time for neck and back discomfort. Pt denied need for Tylenol.
[2024-12-25] VITALS (8 sets, daily range): BP systolic 107–145; BP diastolic 58–85; BMI 28.8
[2024-12-25] MEDS: CARDIZEM 125 IV (02:56)
[2024-12-25] MEDS: MILK OF MAGNESIA 30 ML PO (03:34)
[2024-12-25] MEDS: ROCEPHIN 2000 MG IV ×2 (03:34→15:41)
[2024-12-25] MEDS: STERILE WATER FOR INJECTION 20 ML IV ×2 (03:35→15:41)
[2024-12-25] MEDS: ROXICODONE 5 MG PO ×3 (03:36→13:22)
[2024-12-25] MEDS: AMPICILLIN 108 MG IV ×6 (03:52→23:28)
[2024-12-25 04:29] LABS: Blood Urea Nitrogen 5 mg/dl (7-17); Calcium 8.2 mg/dl (8.4-10.2); Carbon Dioxide 23 mmol/L (22-30); Chloride 108 mmol/L (98-107); Estimated Creatinine Clearance 86 ml/min; Glucose 121 mg/dl (70-99); Potassium 4.3 mmol/L (3.5-5.1); Sodium 135 mmol/L (135-145); eGFR > 60.00
--- NOTE | 2024-12-25 05:02 | PTCARENOTE ---
Pt's NA up to 135. C/o lower ext swelling. IVF placed on hold
[2024-12-25] MEDS: LIDOCAINE 4% PATCH 2 PATCH TOPICAL (07:46)
[2024-12-25] MEDS: TOPROL XL 25 MG PO ×2 (08:56→19:53)
[2024-12-25] MEDS: FLEXERIL 5 MG PO ×2 (08:56→20:21)
[2024-12-25] MEDS: PROTONIX 20 MG PO ×2 (08:56→19:55)
[2024-12-25] MEDS: SENOKOT-S 1 TABLET PO ×2 (08:57→19:55)
[2024-12-25] MEDS: ELIQUIS 5 MG PO ×2 (08:57→19:55)
[2024-12-25] MEDS: LYRICA 75 MG PO ×2 (08:58→19:55)
[2024-12-25] MEDS: MIRALAX 17 GRAMS PO ×3 (09:09→23:07)
[2024-12-25] MEDS: FEMARA PO (09:09)
[2024-12-25 10:33] LABS: % Basophils 0.5 % (0-2); % Eosinophils 1.3 % (0-6); % Lymphocytes 6.8 % (20.5-51.1); % Monocytes 8.4 % (1.7-9.3); % Neutrophils 82.7 % (42.2-75.2); Hematocrit 25.3 % (37.0-47.0); Hemoglobin 8.3 g/dL (12.0-16.0); Mean Corp Hgb Conc. 32.8 g/dL (33.0-37.0); Mean Corpuscular Hgb 28.8 pg (27.0-31.0); Mean Corpuscular Volume 87.8 fL (81.0-99.0); Mean Platelet Volume 9.4 fL (7.4-10.4); Platelet Count 341 10^3/uL (130-400); Red Blood Cell Count 2.88 10^6/uL (4.20-5.40); Red Cell Dist. Width 14.2 % (11.5-14.5); White Blood Cell Count 12.1 10^3/uL (4.8-10.8)
[2024-12-25 10:34] LABS: % Immature Granulocytes 0.3 % (0-0.5); Absolute Basophils 0.1 10^3/uL (0-0.2); Absolute Eosinophils 0.2 10^3/uL (0-0.7); Absolute Lymphocytes 0.8 10^3/uL (1.2-3.4); Nucleated Red Blood Cells % 0 %
--- NOTE | 2024-12-25 10:43 | W.PN.ID1 ---
Date of Service
Date of Service: December 25, 2024
Today's Communication
Continue amp/ceftriaxone.
SAMY and MRI tomorrow.
Assessment / Plan
Complicated Enterococcus faecalis bacteremia (4 sets bcx's)
Leukocytosis
Fevers - resolved
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
Neck pain
Hyponatremia
Hx breast CA (chemo/XRT/lumpectomy)
pA-fib
Aortic stenosis
HTN
Fibromyalgia
Polymyalgia rheumatica
Recommendations:
Blood cultures from 12/21 and 12/22 positive for Enterococcus faecalis (obtained prior to initiation of antibiotics).
Blood cultures from 12/23 negative to date.
Given recent TAVR and PPM (August) concern at this point in time would be for prosthetic valve/PPM endocarditis.
- TTE negative.
- SAMY tomorrow
Given acute severe neck pain, for MRI C/T spine to assess for discitis/osteo/epidural abscess. Need to turn off PPM.
Continue with ampicillin 2 gm IV q4h and ceftriaxone 2gm IV q12h.
Follow white count and temperature curve.
����������������������������������������������������������
Chief Complaint
-: Bacteremia
Subjective / Review of Systems
c/o severe neck pain due to decrease in narcotic.
Vital Signs / Physical Exam
Vital Signs
Vital Signs
Temp Pulse Resp BP Pulse Ox
98 F 109 20 145/85 94
12/25/24 07:04 12/25/24 08:56 12/25/24 07:04 12/25/24 08:56 12/25/24 07:04
Physical Exam
Constitutional: Non-toxic
Eyes: No Conjunctival Hemorrhage and Sclera Anicteric
Cardiovascular: S1/S2, Murmur and Other (RCW PPM site no erythema/warmth/induration)
Pulmonary: Clear
Gastrointestinal: Soft, Non Tender, Distended, Normal Bowel Sounds, No Rebound and No Guarding
Extremities: Negative Edema, Splinter Hemorrhage or Janeway Lesions
Neurological: AO x 3; Negative Meningeal Signs
Objective Data
Lab Data
Lab Results
12/25/24 10:06
12/25/24 10:10
ESR 99 mm/hour (0-20) H 12/23/24 06:48
Estimated Creat Clear Cancelled 12/25/24 10:10
Total Bilirubin 0.6 mg/dl (0.2-1.3) 12/20/24 23:43
AST 56 U/L (14-36) H 12/20/24 23:43
ALT 52 U/L (0-35) H 12/20/24 23:43
Alkaline Phosphatase 119 U/L (38-126) 12/20/24 23:43
C-Reactive Protein 184.90 mg/L (0.0-10.00) H 12/23/24 06:48
Most recent labs reviewed.
Micro Results:
12/22/24 09:54 Blood Culture - Final
Blood/Venous Enterococcus faecalis
Gram Stain - Final
12/22/24 09:27 Blood Culture - Final
Blood/Venous Enterococcus faecalis
Gram Stain - Final
12/25/24 03:29 Blood Culture - Pending
Blood/Venous
12/24/24 02:57 Blood Culture - Preliminary
Blood/Venous No Growth in 24 hours- Final report to follow
12/23/24 12:40 Blood Culture - Preliminary
Blood/Venous No Growth in 24 hours- Final report to follow
12/21/24 14:35 Blood Culture - Final
Blood/Venous Enterococcus faecalis
Gram Stain - Final
12/23/24 12:06 Blood Culture - Preliminary
Blood/Venous No Growth in 24 hours- Final report to follow
12/21/24 13:56 Blood Culture - Final
Blood/Venous Enterococcus faecalis
Gram Stain - Final
Imaging:
12/21/2024 CXR (2 view): No significant focal parenchymal opacification or vascular congestion.
12/21/24 CT head without contrast: Unenhanced CT imaging of the head reveals no findings to suggest recent infarction, intracranial hemorrhage, extra-axial fluid collection, mass effect or midline shift. The ventricles, cisterns and sulci are within
the limits of normal. The brainstem and posterior fossa structures demonstrate no significant focal abnormality.
12/21/2024 CT chest (PE study): No evidence of central pulmonary embolism. Some right upper lobe scarring and bibasilar subsegmental atelectasis.
--- NOTE | 2024-12-25 10:59 | W.PN.NEPH.PH ---
Today's Communication / Plan
-
observe with FR
Assessment/Plan
-
Impression:
Symptomatic acute on chronic hyponatremia (120)
Neck and thigh pain
Hypertension
Paroxysmal
Anemia
History of breast cancer
Chronic pain and fibromyalgia
Gram-positive cocci in chains
Plan:
Hyponatremia: SIADH, U osmo 443
sodium improved to 135
encourage solute intake
monitor sodium with FR and pain control
BP stable, ACEI on hold, on BB and CCB oer cards
Enterococcus bacteremia -need MRI shoulder tomorrow, abx per ID
SAMY thursday
-
-
Date of Service: December 25, 2024
CC / HPI / ROS
-
Chief Complaint:
Hyponatremia
History of Present Illness:
Serum sodium only upto 135,
moved to IVU on 12/23 for afib with RVR s/p dilt gtt, converted to sinus
Bp stable
no fever, wbc up at 12
Review of Systems:
non oliguric
c/o right shoulder, neck pain
poor appetite, no n/v
Labs
-
Labs:
WBC 12.1 10^3/uL (4.8-10.8) H 12/25/24 10:06
RBC 2.88 10^6/uL (4.20-5.40) L 12/25/24 10:06
Hgb 8.3 g/dL (12.0-16.0) L 12/25/24 10:06
Hct 25.3 % (37.0-47.0) L 12/25/24 10:06
Plt Count 341 10^3/uL (130-400) D 12/25/24 10:06
Sodium Cancelled 12/25/24 10:10
Potassium Cancelled 12/25/24 10:10
Chloride Cancelled 12/25/24 10:10
Carbon Dioxide Cancelled 12/25/24 10:10
BUN Cancelled 12/25/24 10:10
Creatinine Cancelled 12/25/24 10:10
eGFR Cancelled 12/25/24 10:10
Glucose Cancelled 12/25/24 10:10
Calcium Cancelled 12/25/24 10:10
Albumin 3.4 g/dl (3.5-5.0) L 12/20/24 23:43
Physical Exam
-
Vital Signs:
Vital Signs
Temp Pulse Resp BP Pulse Ox
99 F 100 20 116/71 97
12/25/24 12:10 12/25/24 12:50 12/25/24 12:10 12/25/24 12:50 12/25/24 12:10
Cardiovascular:: Regular rate and rhythm (murmur)
Respiratory:: Bilateral: CTA
Lung Excursion:: Normal
Abdomen:: Nontender and Soft
Bowel Sounds:: Normal
Extremity Edema:: None: Bilateral:
Ashton Catheter: No
[2024-12-25] MEDS: CARDIZEM 90 MG PO ×3 (12:50→23:07)
--- NOTE | 2024-12-25 13:03 | W.PN.HOSP.TC ---
Today's Communication/Plan
-
Assessment / Plan
Assessment / Plan
General: No Apparent Distress, Comfortable and Conversant
HEENT: NormoCephalic, Moist mucous membranes, Atraumatic
Respiratory: Clear and Non Labored Respirations
Cardiac: Tachycardic and irregular with heart rate around 100, no murmur
GI: Soft, Non Tender, Non Distended and Normal Bowel Sounds
Musculoskeletal: No Edema, no deformity, right posterior cervical muscular hypertonicity
Skin: Warm and dry
: NO Ashton
Neuro: Awake, Alert, Nonfocal/grossly intact
Psych: Calm and Intact Judgment/Insight
Ms. Cooley is a 74-year-old female with a medical history of breast cancer (status post chemoradiation, now on letrozole), paroxysmal A-fib (on Eliquis), complete heart block (status post PPM 08/22/2024), aortic stenosis (status post TAVR
08/15/2024), hypertension, fibromyalgia, and polymyalgia rheumatica who was sent to the ED after outpatient labs revealed significant hyponatremia of 120. Her son (who is an ED physician at [facility]) reviewed the lab results and advised her to
go to the ED. She has had no neurologic symptoms. However she has been experiencing left thigh and right sided neck pain for several days after strenuous exercise which she had not done in a long time. CT imaging of her head and chest showed no
acute abnormalities. Labs were significant for serum sodium of 119 and a leukocytosis around 11,000. She was initially afebrile and normotensive although later developed a mild fever of 100.9 �F. She was given 2050 cc of hypertonic saline and
admitted for further evaluation and management of hyponatremia.
Enterococcus bacteremia:
- Suspect endocarditis with history of recent TAVR and PPM in August 2024
- Continue antibiotics with ceftriaxone and ampicillin, discontinued IV fluids as patient was developing some lower extremity edema
- Transthoracic echocardiogram unrevealing for clear vegetations, cardiology following and planning transesophageal echo tomorrow 12/26
- Has been afebrile for over 24 hours now, persistent mild leukocytosis
- Repeat cultures negative so far
- Appreciate ID guidance
A-fib with RVR:
- Developed sustained tachycardia with heart rate around 130 when attempting to get MRI which was postponed, started on diltiazem drip at that time
- Heart rate now better controlled, has been transitioned to diltiazem 90 mg p.o. 4 times daily, diltiazem drip discontinued
- Treat underlying bacteremia with suspected infective endocarditis which is likely an instigating factor here
- Appreciate cardiology guidance, planning SAMY tomorrow 12/26
- Continue anticoagulation with home dose of Eliquis
Hyponatremia:
- Now resolved, serum sodium this morning 135
- Severe with initial serum sodium of 119, no neurologic symptoms
- Appreciate nephrology guidance
Neck pain:
- Suspect due to muscular hypertonicity following exercise
- Continue multimodal pain control
- Obtain MRI of cervical and thoracic spine
DVT prophylaxis: Eliquis
CODE STATUS: Full code
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 One of her sons, Yoav, is an emergency medicine physician at [facility], can be contacted on his cell phone at [phone].
Total time spent on today's encounter was 45 minutes
Anticipated Discharge: > 48 hours
Subjective/Interval History
-
Date of Service: December 25, 2024
Patient was seen and examined at bedside this morning. Continues to have ongoing right-sided neck and shoulder pain. She has been afebrile for over 24 hours now. Pending transesophageal echocardiogram tomorrow.
Objective Data
-
Labs:
Laboratory Results
12/25/24 12/25/24 12/25/24
03:29 10:06 10:10
WBC 12.1 H
Hgb 8.3 L
Hct 25.3 L
Plt Count 341 D
Sodium 135 Cancelled
Potassium 4.3 Cancelled
Chloride 108 H Cancelled
Carbon Dioxide 23 Cancelled
BUN 5 L Cancelled
Creatinine 0.5 L Cancelled
Glucose 121 H Cancelled
Calcium 8.2 L Cancelled
Vital Signs:
Vital Signs
Temp Pulse Resp BP Pulse Ox
99 F 100 20 116/71 97
12/25/24 12:10 12/25/24 12:50 12/25/24 12:10 12/25/24 12:50 12/25/24 12:10
I&O
12/24/24 12/25/24 12/26/24
06:59 06:59 06:59
Intake Total 1528 / 1528 4500 / 4500
Output Total 350 / 350 1200 / 1200
Balance 1178 / 1178 3300 / 3300
Review of Systems
-
History Source: Patient
All other systems: Reviewed and negative
Musculoskeletal: Reports Joint Pain (Right-sided neck pain) and Edema
Physical Exam
-
General: No Apparent Distress
--- NOTE | 2024-12-25 14:14 | W.PN.CD ---
Today's Communication / Plan
-
NPO after midnight
SAMY tomorrwo
Impression / Plan
-
Enterococcus bacteremia - positive blood cultures for Enterococcus faecalis since 12/21/24.
- ID following, on antibiotics.
- TTE 12/22/24: EF 60-65%, mild cLVH, normal RV size/function, Pacer wire seen in right ventricle. Well seated TAVR Evolut 29 with peak/mean gradients 48/26 mmHg, trivial AR. Compared to prior 09/14/24, aortic valve gradients are now higher,
previously peak/mean 23/13 mmHg.
- recommend SAMY 12/26/24.
AF RVR
- dilt 90 q 6 hr
- metop 25 mg bid
- had SR restored 12/24 late morning
Aortic stenosis - s/p TAVR 08/15/[address] Fisher and Dr. Marks.
- echo as above.
HTN - stable on medical therapy, continue.
- monitor closely.
HLD - stable on Crestor, continue.
Afib - paroxysmal.
- continue Eliquis.
Subjective: Neck pain is back; would like ot have a BM
Physical Exam
Vital Signs/Labs
Vital Signs
Temp Pulse Resp BP Pulse Ox
99 F 100 20 116/71 97
12/25/24 12:10 12/25/24 12:50 12/25/24 12:10 12/25/24 12:50 12/25/24 12:10
12/24/24 12/25/24 12/26/24
06:59 06:59 06:59
Actual Weight 172 lb 6.424 oz 173 lb 1.006 oz
12/25/24 10:06
12/25/24 10:10
Magnesium 2.0 mg/dl (1.6-2.3) 12/25/24 03:29
Physical Exam
Constitutional: No acute distress and Comfortable
EENT: Anicteric
Cardiovascular: Rhythm & rate is regular
Respiratory: Respiratory effort normal and Lungs clear to auscul.
GI: Soft
Neuro/Psych: Alert and Oriented
Data Reviewed
-
Date of Service: December 25, 2024
EKG: Tracing Personally Visualized and interpreted (sr)
Echo: Tracing Personally Visualized and interpreted
Labs: Labs Reviewed by me
[2024-12-25] MEDS: OMNIPAQUE 50 ML PO (15:35)
[2024-12-25] MEDS: TYLENOL 650 MG PO ×2 (18:33→23:27)
[2024-12-25] MEDS: CRESTOR 20 MG PO (23:07)
[2024-12-26] VITALS (7 sets, daily range): BP systolic 102–155; BP diastolic 64–95; BMI 28.9
--- NOTE | 2024-12-26 00:23 | PTCARENOTE ---
At approx 23:15 Patient ambulated w/ standby assist to the bathroom. Pt had a brown loose BM! While in the bathroom pt's HR hit 160's. Patient asymptomatic and denies any chest discomfort. After settling pt in bed, HR fluctuates from 110's-130's at
rest. Niko CLEARING SUPERVISOR aware, and orders obtained for EKG which confirmed Afib w/ RVR. CLEARING SUPERVISOR instructed RN to monitor HR for now d/t patient receiving schedule 90mg Cardizem at 23:07. Patient and Spouse aware of POC. Patient aware to maintain NPO status
for SAMY on 12/26. Call aguilar within reach.
[2024-12-26] MEDS: LOPRESSOR 5 MG IV (02:57)
[2024-12-26] MEDS: ROXICODONE 5 MG PO ×2 (03:05→19:38)
[2024-12-26] MEDS: ROCEPHIN 2000 MG IV ×2 (04:50→17:11)
[2024-12-26] MEDS: STERILE WATER FOR INJECTION 20 ML IV ×2 (04:50→17:11)
[2024-12-26] MEDS: AMPICILLIN 108 MG IV ×5 (04:50→19:39)
[2024-12-26 06:38] LABS: % Basophils 0.8 % (0-2); % Eosinophils 1.5 % (0-6); % Immature Granulocytes 0.6 % (0-0.5); % Lymphocytes 7.3 % (20.5-51.1); % Monocytes 6.7 % (1.7-9.3); % Neutrophils 83.1 % (42.2-75.2); Absolute Basophils 0.1 10^3/uL (0-0.2); Absolute Eosinophils 0.2 10^3/uL (0-0.7); Absolute Immature Granulocytes 0.1 10^3/uL (0-0.05); Absolute Lymphocytes 0.8 10^3/uL (1.2-3.4); Absolute Monocytes 0.7 10^3/uL (0.1-0.6); Absolute Neutrophils 8.9 10^3/uL (1.4-6.5); Hematocrit 24.9 % (37.0-47.0); Hemoglobin 8.4 g/dL (12.0-16.0); Mean Corp Hgb Conc. 33.7 g/dL (33.0-37.0); Mean Corpuscular Hgb 29.1 pg (27.0-31.0); Mean Corpuscular Volume 86.2 fL (81.0-99.0); Mean Platelet Volume 9.2 fL (7.4-10.4); Nucleated Red Blood Cells % 0 %; Platelet Count 363 10^3/uL (130-400); Red Blood Cell Count 2.89 10^6/uL (4.20-5.40); Red Cell Dist. Width 14.6 % (11.5-14.5); White Blood Cell Count 10.7 10^3/uL (4.8-10.8)
--- NOTE | 2024-12-26 06:44 | W.PN.UPDATE ---
Update Note
Progress Note Update
~23:15 Pt to BR, had BM, while in BR her HR up to 160's. Pt asymptomatic, denied chest discomfort. After resting in bed, HR 110-130's, ordered EKG, preliminary read showed Afib w/RVR (patient w/hx of afib w/RVR). Pt received scheduled Cardizem 90 mg
PO @ 23:07, just prior to event. Plan to monitor HR over next 30-45 minutes and if HR not under 120, administer PRN Lopressor.
HR 120 @ midnight, no additional medication given at this time.
[2024-12-26 06:59] LABS: Blood Urea Nitrogen 4 mg/dl (7-17); Calcium 8.2 mg/dl (8.4-10.2); Carbon Dioxide 24 mmol/L (22-30); Chloride 104 mmol/L (98-107); Estimated Creatinine Clearance 87 ml/min; Glucose 113 mg/dl (70-99); Potassium 4.5 mmol/L (3.5-5.1); Sodium 134 mmol/L (135-145); eGFR > 60.00
--- NOTE | 2024-12-26 07:30 | PTCARENOTE ---
pt left for SAMY. Report given to GERSON Maya. at bedside and updated.
[2024-12-26] MEDS: MIRALAX PO ×2 (09:43→17:11)
[2024-12-26] MEDS: TOPROL XL 25 MG PO ×2 (09:44→19:39)
[2024-12-26] MEDS: LIDOCAINE 4% PATCH 2 PATCH TOPICAL (09:44)
[2024-12-26] MEDS: PROTONIX 20 MG PO ×2 (09:44→19:38)
[2024-12-26] MEDS: ELIQUIS 5 MG PO ×2 (09:46→19:38)
[2024-12-26] MEDS: SENOKOT-S 1 TABLET PO ×2 (09:46→19:39)
[2024-12-26] MEDS: LYRICA 75 MG PO ×2 (09:46→19:38)
[2024-12-26] MEDS: CARDIZEM 90 MG PO ×3 (09:46→17:12)
[2024-12-26] MEDS: FEMARA PO (09:47)
--- NOTE | 2024-12-26 10:08 | W.PN.HOSP.TC ---
Addendum entered and electronically signed by Artemio Yoo DO 12/29/24 15:28:
Acute osteomyelitis was present on admission
Addendum entered and electronically signed by Artemio Yoo DO 12/27/24 15:52:
Acute osteomyelitis medial clavicle and manubrium
Addendum entered and electronically signed by Artemio Yoo DO 12/27/24 15:20:
Mild spinal cord compression in the cervical spine noted on MRI.
Addendum entered and electronically signed by Artemio Yoo DO 12/26/24 15:21:
SAMY negative for vegetation.
MRI confirms right sternoclavicular joint septic arthritis, osteomyelitis, abscess.
I spoke with CT surgery (Dr. Fisher) and they recommend transfer to [facility].
I spoke with [facility] and they have accepted the patient in transfer, Dr. James Gomez, thoracic surgery.
Updated patient and family and all are in agreement with transfer to [facility]. Updated patient's son on the phone, he is a ER physician at [place].
Original Note:
Today's Communication/Plan
-
Await spinal MRI
Follow-up SAMY results
Resume diet
Fluid restriction
Anemia labs
Assessment / Plan
Assessment / Plan
Gen-AAOx3, NAD
HEENT-NC, AT, anicteric, clear oral mm
Neck-supple
CV-reg, no M, +S1/S2
Lungs-clear B/L
Abd-soft, NT, ND
Ext-mild bipedal edema
Musculoskeletal-no cyanosis, clubbing
Skin-warm and dry
Neuro-grossly non-focal
Psych-calm, cooperative
Enterococcus bacteremia:
- Suspect endocarditis with history of recent TAVR and PPM in August 2024
- Continue antibiotics with ceftriaxone and ampicillin, discontinued IV fluids as patient was developing some lower extremity edema
- Transthoracic echocardiogram unrevealing for clear vegetations, cardiology following
- SAMY completed this morning, 12/26, report pending.
- Last fever 12/22, leukocytosis resolved.
- Repeat cultures negative so far
- Appreciate ID guidance
A-fib with RVR: Back in sinus rhythm currently, mildly tachycardic.
- Developed sustained tachycardia with heart rate around 130 when attempting to get MRI which was postponed, started on diltiazem drip at that time
- Heart rate now better controlled, has been transitioned to diltiazem 90 mg p.o. 4 times daily, diltiazem drip discontinued
- Treat underlying bacteremia with suspected infective endocarditis which is likely an instigating factor here
- Continue anticoagulation with home dose of Eliquis
Hyponatremia:
- Now resolved, serum sodium this morning 134
- Severe with initial serum sodium of 119, no neurologic symptoms
- Appreciate nephrology guidance. Did receive several doses of tolvaptan. Continue fluid restriction.
Neck pain: Resolved.
- Suspect due to muscular hypertonicity following exercise
- Continue multimodal pain control
- Obtain MRI of cervical and thoracic spine
Chronic anemia -normocytic. Unclear etiology. Hemoglobin relatively stable. Can check anemia labs.
DVT prophylaxis: Eliquis
CODE STATUS: Full code
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 One of her sons, Yoav, is an emergency medicine physician at [facility] [facility], can be contacted on his cell phone at [phone].
Updated at the bedside.
Anticipated Discharge: > 48 hours
Subjective/Interval History
-
Date of Service: December 26, 2024
Patient seen and examined. No complaints.
Objective Data
-
Labs:
Laboratory Results
12/26/24
06:25
WBC 10.7
Hgb 8.4 L
Hct 24.9 L
Plt Count 363
Sodium 134 L
Potassium 4.5
Chloride 104
Carbon Dioxide 24
BUN 4 L
Creatinine 0.5 L
Glucose 113 H
Calcium 8.2 L
Vital Signs:
Vital Signs
Temp Pulse Resp BP Pulse Ox
98.0 F 101 18 133/78 95
12/26/24 07:18 12/26/24 09:44 12/26/24 07:18 12/26/24 09:44 12/26/24 07:18
I&O
12/25/24 12/26/24 12/27/24
06:59 06:59 06:59
Intake Total 4500 / 4500 1451 / 1451
Output Total 1200 / 1200
Balance 3300 / 3300 1451 / 1451
Review of Systems
-
History Source: Patient
All other systems: Reviewed and negative
[2024-12-26 10:39] LABS: Reticulocyte Count 1.1 % (0.4-2.8)
--- NOTE | 2024-12-26 11:34 | CM ---
Chart reviewed. Patient is independent of ADLS, lives with her in a [address], 2 [address], 0 DME. Patient waiting on SAMY results and MRI. Plan is for the patient to return home with [facility] to follow
--- NOTE | 2024-12-26 12:07 | W.PN.ID1 ---
Date of Service
Date of Service: December 26, 2024
Today's Communication
Await MRI.
Assessment / Plan
Complicated Enterococcus faecalis bacteremia (4 sets bcx's)
Leukocytosis - resolved
Fevers - resolved
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
Neck pain
Hyponatremia
Hx breast CA (chemo/XRT/lumpectomy)
pA-fib
Aortic stenosis
HTN
Fibromyalgia
Polymyalgia rheumatica
Recommendations:
Blood cultures from 12/21 and 12/22 positive for Enterococcus faecalis (obtained prior to initiation of antibiotics).
Blood cultures from 12/23 negative to date.
Given recent TAVR and PPM (August) concern at this point in time would be for prosthetic valve/PPM endocarditis.
- TTE negative.
- SAMY No definite vegetation seen on valves or device wire. However, difficult study with TAVR.
Given acute severe neck pain, for MRI C/T spine to assess for discitis/osteo/epidural abscess. Need to turn off PPM.
Continue with ampicillin 2 gm IV q4h and ceftriaxone 2gm IV q12h, anticipate 6 weeks of IV abx's.
����������������������������������������������������������
Chief Complaint
-: Bacteremia
Subjective / Review of Systems
Neck pain more comfortable.
Vital Signs / Physical Exam
Vital Signs
Vital Signs
Temp Pulse Resp BP Pulse Ox
99.2 F 101 16 133/78 93
12/26/24 11:03 12/26/24 09:44 12/26/24 11:03 12/26/24 09:44 12/26/24 11:03
Physical Exam
Constitutional: No Acute Distress
Eyes: No Conjunctival Hemorrhage and Sclera Anicteric
Cardiovascular: S1/S2, Murmur and Other (RCW PPM site no erythema/warmth/induration)
Pulmonary: Clear
Gastrointestinal: Soft, Non Tender, Distended, Normal Bowel Sounds, No Rebound and No Guarding
Extremities: Negative Edema, Splinter Hemorrhage or Janeway Lesions
Neurological: AO x 3; Negative Meningeal Signs
Objective Data
Lab Data
Lab Results
12/26/24 06:25
12/26/24 06:25
ESR 99 mm/hour (0-20) H 12/23/24 06:48
Estimated Creat Clear 87 ml/min 12/26/24 06:25
Total Bilirubin 0.6 mg/dl (0.2-1.3) 12/20/24 23:43
AST 56 U/L (14-36) H 12/20/24 23:43
ALT 52 U/L (0-35) H 12/20/24 23:43
Alkaline Phosphatase 119 U/L (38-126) 12/20/24 23:43
C-Reactive Protein 184.90 mg/L (0.0-10.00) H 12/23/24 06:48
Most recent labs reviewed.
Micro Results:
12/26/24 06:25 Blood Culture - Pending
Blood/Venous
12/25/24 03:29 Blood Culture - Preliminary
Blood/Venous No Growth in 24 hours- Final report to follow
12/24/24 02:57 Blood Culture - Preliminary
Blood/Venous No Growth in 48 hours- Final report to follow
12/23/24 12:40 Blood Culture - Preliminary
Blood/Venous No Growth in 48 hours- Final report to follow
12/23/24 12:06 Blood Culture - Preliminary
Blood/Venous No Growth in 48 hours- Final report to follow
12/22/24 09:54 Blood Culture - Final
Blood/Venous Enterococcus faecalis
Gram Stain - Final
12/22/24 09:27 Blood Culture - Final
Blood/Venous Enterococcus faecalis
Gram Stain - Final
12/21/24 14:35 Blood Culture - Final
Blood/Venous Enterococcus faecalis
Gram Stain - Final
12/21/24 13:56 Blood Culture - Final
Blood/Venous Enterococcus faecalis
Gram Stain - Final
Imaging:
12/21/2024 CXR (2 view): No significant focal parenchymal opacification or vascular congestion.
12/21/24 CT head without contrast: Unenhanced CT imaging of the head reveals no findings to suggest recent infarction, intracranial hemorrhage, extra-axial fluid collection, mass effect or midline shift. The ventricles, cisterns and sulci are within
the limits of normal. The brainstem and posterior fossa structures demonstrate no significant focal abnormality.
12/21/2024 CT chest (PE study): No evidence of central pulmonary embolism. Some right upper lobe scarring and bibasilar subsegmental atelectasis.
Care Review
Plan reviewed with: Physician (Dr. Kolb)
--- NOTE | 2024-12-26 12:15 | W.PN.CD ---
Today's Communication / Plan
-
SAMY without source of bacteremia
cont. abx per ID
spinal MRI
cont. rate control and eliquis for Afib
Impression / Plan
-
Enterococcus bacteremia - positive blood cultures for Enterococcus faecalis since 12/21/24.
- ID following, on antibiotics.
- TTE 12/22/24: EF 60-65%, mild cLVH, normal RV size/function, Pacer wire seen in right ventricle. Well seated TAVR Evolut 29 with peak/mean gradients 48/26 mmHg, trivial AR. Compared to prior 09/14/24, aortic valve gradients are now higher,
previously peak/mean 23/13 mmHg.
- SAMY today reviewed personally and discussed with Dr. Yulisa Kolb (performing physician), no evidence of endocarditis or vegetation
- CTAP without source to explain bacteremia
- awaiting spinal MRI
AF RVR
- episode of RVR overnight with using bathroom
- dilt 90 q 6 hr
- metop 25 mg bid
- apixaban
- will consolidate to long acting rate control before discharge
Aortic stenosis - s/p TAVR 08/15/[address] Fisher and Dr[address] Marks.
- echos as above, normal valve function, no e/o endocarditis or vegetation
HTN - stable on medical therapy, continue.
- monitor closely.
HLD - stable on Crestor, continue.
Physical Exam
Vital Signs/Labs
Vital Signs
Temp Pulse Resp BP Pulse Ox
37.3 C 101 16 133/78 93
12/26/24 11:03 12/26/24 09:44 12/26/24 11:03 12/26/24 09:44 12/26/24 11:03
12/25/24 12/26/24 12/27/24
06:59 06:59 06:59
Actual Weight 78.5 kg 78.7 kg
12/26/24 06:25
12/26/24 06:25
Magnesium 2.0 mg/dl (1.6-2.3) 12/25/24 03:29
Data Reviewed
-
Date of Service: December 26, 2024
Medical Decision Making: Reviewed Test Results
EKG: Tracing Personally Visualized and interpreted
Echo: Tracing Personally Visualized and interpreted
Labs: Labs Reviewed by me
--- NOTE | 2024-12-26 12:34 | PTCARENOTE ---
pt left for MRI, accompanied by Mc NIETO.
[2024-12-26 12:42] LABS: Iron 21 ug/dl (37-170)
[2024-12-26 12:51] LABS: Percent Saturation 12 % (20-50); Total Iron Binding Capacity 165 ug/dl (265-497)
[2024-12-26] MEDS: DILAUDID 0.5 MG IV (13:49)
--- NOTE | 2024-12-26 14:00 | PTOTSP ---
Reviewed chart and noted pt transferred to IVU for higher level of care. Will need updated PT order for therapy to resume.
[2024-12-26 14:22] LABS: Folate 3.7 ng/ml (2.76-20); Vitamin B12 617 pg/ml (239-931)
[2024-12-26] MEDS: TYLENOL 650 MG PO (14:48)
--- NOTE | 2024-12-26 20:06 | PTCARENOTE ---
Pt awaiting ambulance pickup for transfer to [facility]; Son at bedside. report called by day shift nurse. evening meds given including Roxicodone for pain right clavicular area 7 out of 10. Sinus on telemetry.
--- NOTE | 2024-12-26 20:29 | PTCARENOTE ---
Pt picked up by ambulance at 2014. Son at bedside at time of transfer. copy of chart given.
--- NOTE | 2024-12-27 14:56 | PN.CDI ---
CDI
- -
CDI:
Physician Documentation Request
Admit Date: 12/21/24 07:57
Dear Doctor Naila,
Please review the following and provide your response in the progress notes.
Clinical Indicators:
The diagnosis of spinal cord compression was included in the signed MRI report.
12/26
#PROCEDURE: MR Cervical Spine Without  W, MR Thoracic Spine W/o  With
#CERVICAL SPINE:
#1. Mild multilevel cervical disc desiccation with small multilevel disc herniations
#...causing mild spinal cord compression at C5/C6 and
#...minimal spinal cord compression at C3/C4 and C4/C5.
#2. Moderate to severe left-sided facet joint arthrosis at C2/C3 and C4/C5.
#3. Complete osseous fusion across the left C3/C4 facet joint.
#4. Chiari I malformation.
Please indicate in your progress notes if you are in agreement that the above diagnosis is valid for this patient:
Spinal Cord Compression is a valid diagnosis (Please include it in your progress notes)
Spinal Cord Compression is not a valid diagnosis for this patient
Spinal Cord Compression is not yet confirmed but remains a suspected condition
Other (please specify)
Use of terms such as suspected, likely, concern for, or probable are acceptable for a diagnosis that is being evaluated, monitored or treated as if it exists and can be coded in the inpatient setting, when documented at the time of discharge.
Thank you,
Ana Aleman RN BSN CCDS
CDI Specialist
Please contact via tiger text
Please use your independent medical judgment in providing your response.
--- NOTE | 2024-12-27 15:13 | PN.CDI ---
CDI
- -
CDI:
Physician Documentation Request
Admit Date: 12/21/24 07:57
Dear Doctor Naila,
Please review the following and provide your response in the progress notes.
Clinical Indicators:
12/26
#Exams: MR Cervical Spine Without & W; MR Thoracic Spine W/o & With
#PROCEDURE: MR Cervical Spine Without  W, MR Thoracic Spine W/o  With
#IMPRESSION:
#1. ACUTE SEPTIC ARTHRITIS of the RIGHT STERNOCLAVICULAR JOINT with adjacent acute osteomyelitis in the medial clavicle and manubrium.
#2. 3.1 cm ABSCESS posterior to the right sternoclavicular joint.
Based on the above and your clinical assessment, please clarify which of the following accurately represents the acuity of the osteomyelitis:
Acute osteomyelitis medial clavical and manibrium
Acute on Chronic osteomyelitis medial clavicle clavical and manibrium
Other(please specify)
Use of terms such as suspected, likely, concern for, or probable (associated with a specific diagnosis that is being evaluated, monitored, or treated as if it exists) are acceptable and can be coded in the inpatient setting, when documented at the
time of discharge.
Thank you,
Ana Aleman RN BSN CCDS
CDI Specialist
Please contact via tiger text
Please use your independent medical judgment in providing your response.
--- NOTE | 2024-12-27 15:18 | W.DS.TRANS ---
DC Summary - Electrical Foreman
-
Discharge Instructions:
Sleep Apnea Risk Low
Discharge Diagnosis/Procedures Bacteremia, right sternoclavicular joint septic
arthritis with osteomyelitis and abscess
Diet Low Cholesterol,Low Fat
Activity As tolerated
Driving Restrictions As prior to admission
Bathing Restrictions None
Instructions:
Stand-Alone Forms:
Changes to Home Medications: No
Discharge Medications:
DC Medications w/original date entered in [employer]
zolpidem 12.5 mg tablet,extended release,multiphase 12.5 mg PO HS SLEEP 07/08/24
apixaban 5 mg tablet (Eliquis) 5 mg PO BID Blood clot prevention/tx 30 days #60 tabs 08/16/24
diltiazem HCl 180 mg capsule,extended release 24 hr 180 mg PO BID Blood pressure #0 caps 08/16/24
lisinopril 40 mg tablet 40 mg PO BID Blood pressure #0 tabs 08/16/24
omeprazole 20 mg capsule,delayed release 20 mg PO BID 08/20/24
pregabalin 75 mg capsule 75 mg PO BID 08/20/24
rosuvastatin 20 mg tablet 20 mg PO DAILY High cholesterol 08/20/24
metoprolol succinate 25 mg tablet,extended release 24 hr 25 mg PO DAILY 08/23/24
letrozole 2.5 mg tablet 2.5 mg PO DAILY 12/21/24
Home Medication Changes
Pending Results: No
--- NOTE | 2024-12-28 14:33 | PN.CDI ---
CDI
- -
CDI:
Physician Documentation Request
Admit Date: 12/21/24 07:57
Dear Doctor Naila,
Please review the following and provide your response in the progress notes.
Clinical Indicators:
#Admitted, 12/21
#Transfer, 12/26
PN, 12/26
#Acute osteomyelitis medial clavicle and manubrium
Addendum Dictated by: Artemio Yoo DO
Addendum Dictated Date & Time: 12/27/24
Please clarify the following:
Acute osteomyelitis was present on admission
Acute osteomyelitis was not present on admission
Unable to determine
Use of terms such as suspected, likely, concern for, or probable (associated with a specific diagnosis that is being evaluated, monitored, or treated as if it exists) are acceptable and can be coded in the inpatient setting, when documented at the
time of discharge.
Thank you,
Ana Aleman RN BSN CCDS
CDI Specialist
Please contact via tiger text
Please use your independent medical judgment in providing your response.
== END 2024-12-26 20:15 | disposition short-term general hospital (02) | DRG 540 ==
LOC: IVU 07:57
PROVIDERS: Internal Medicine; Internal Medicine Cardiovascular Disease; Nurse Practitioner Family; Nurse Practitioner Gerontology; ADMITTING PHYSICIAN Hospitalist; ATTENDING PHYSICIAN Hospitalist; CONSULT PHYSICIAN Internal Medicine Cardiovascular Disease; CONSULT PHYSICIAN Internal Medicine Infectious Disease; EMERGENCY PHYSICIAN Student in an Organized Health Care Education/Training Program; FAMILY PHYSICIAN Internal Medicine; OTHER PHYSICIAN Specialist
PROC: B24BZZ4 Ultrasonography of Heart with Aorta, Transesophageal (ICD-10-PCS; 2024-12-26)
DX: M86.18 Other acute osteomyelitis, other site (principal); E22.2 Syndrome of inappropriate secretion of antidiuretic hormone; G95.20 Unspecified cord compression; I44.2 Atrioventricular block, complete; R78.81 Bacteremia; M00.89 Polyarthritis due to other bacteria; I48.0 Paroxysmal atrial fibrillation; B95.2 Enterococcus as the cause of diseases classified elsewhere; Z95.2 Presence of prosthetic heart valve; I10 Essential (primary) hypertension; Z92.21 Personal history of antineoplastic chemotherapy; Z85.3 Personal history of malignant neoplasm of breast; Z95.0 Presence of cardiac pacemaker; M79.7 Fibromyalgia; M35.3 Polymyalgia rheumatica; Z96.653 Presence of artificial knee joint, bilateral; Z88.1 Allergy status to other antibiotic agents; Z79.01 Long term (current) use of anticoagulants; Z79.811 Long term (current) use of aromatase inhibitors; D63.8 Anemia in other chronic diseases classified elsewhere; E78.00 Pure hypercholesterolemia, unspecified; G89.29 Other chronic pain; Z79.899 Other long term (current) drug therapy; Z92.3 Personal history of irradiation
CPT/HCPCS: 70450; 71046; 71275; 72156; 72157; 74177; 80048; 80053; 81003; 81015; 82607; 82728; 82746; 82962; 83540; 83550; 83735; 83935; 84300; 84443; 85025; 85027; 85045; 85652; 86140; 87040; 87077; 87154; 87186; 87205; 93005; 93306; 93312; 93320; 93325; 96374; 96375; 96376; 97116; 97163; 97530; 99291; A9575; Q9967

== ENCOUNTER → 2025-02-10 12:47 | Outpatient (REF) | payer MEDICARE, OTHER, SELFPAY | LOC: HWRCS 12:47 | PROVIDERS: ATTENDING PHYSICIAN Internal Medicine; FAMILY PHYSICIAN Internal Medicine | DX: Z95.2 Presence of prosthetic heart valve (principal); I10 Essential (primary) hypertension; I48.0 Paroxysmal atrial fibrillation; I45.10 Unspecified right bundle-branch block; I77.810 Thoracic aortic ectasia; I25.10 Atherosclerotic heart disease of native coronary artery without angina pectoris | CPT/HCPCS: 93306 ==